=== PATIENT | male | born 1960 | race Caucasian/White ===

== ENCOUNTER → 2016-11-03 | Outpatient (CLI) | payer MEDICARE ==
--- NOTE | 2016-11-03 13:49 | NM ---
EXAMINATION TYPE: NM bone 3 phase DATE OF EXAM: 11/03/2016 COMPARISON: Prior bone scan 02/09/[address] scan 08/11/2015, plain film 08/11/2015 HISTORY: Left foot cellulitis, L03.116 Triple phase bone scintigraphy was performed following the injection of27.3 mCi Tc 99m MDP. Immediat e images and 5.5 hours post injection images acquired. FINDINGS: Decreased radiopharmaceutical is noted to the left midfoot on blood flow, blood pool and delayed imag ing similar to prior exam. IMPRESSION: Findings could be related to patient's prior's fracture, secondary osteoarthritic change, there may b e associated cellulitis. Difficult to exclude infection
== END | disposition home or self-care (01) ==
LOC: RADNMMAIN 07:06
PROVIDERS: ATTEND Family Medicine
DX: L03.116 Cellulitis of left lower limb (principal)
CPT/HCPCS: 78315; A9503

== ENCOUNTER → 2017-03-03 | Outpatient (CLI) | payer MEDICARE ==
--- NOTE | 2017-03-03 14:18 | XR ---
Left ankle HISTORY: Remote trauma and pain 3 views of the left ankle correlated to previous dated 09/04/2015 Postop changes are again noted status post open reduction internal fixation at the distal tibia and f ibula. Alignment is maintained. Fractures show healing change. Postop change also noted to the foot s tatus post tarsometatarsal fusion. One proximal screw has fractured in the interval. Heterotopic new bone formation present dorsal to the sideplate. Degenerative changes are present at the intertarsal j oints. Bone mineralization somewhat reduced. There is soft tissue swelling noted at the foot as on pr ior exam. Some spurring present at the tibiotalar joint may be indicative of secondary osteoarthritic change. Lucency present at the medial ankle mortise could represent a small osteochondral defect. IMPRESSION: Fracture of one of the proximal screws in the foot. Second screw is curved in appearance. Difficult to exclude osteochondral defect ankle mortise. Additional findings above. A Yellow message has been communicated to Louie Lipscomb DO via the [employer] system on 03/03/2017 2:15 PM, Message ID [id number].
== END | disposition home or self-care (01) ==
LOC: RADXRMAIN 13:38
PROVIDERS: ATTEND Family Medicine
DX: S92.902A Unspecified fracture of left foot, initial encounter for closed fracture (principal); Z98.890 Other specified postprocedural states

== ENCOUNTER → 2017-07-04 | Outpatient (CLI) | payer MEDICARE ==
--- NOTE | 2017-07-04 15:32 | NM ---
Nuclear medicine hepatobiliary scan. HISTORY: Pain. DOSAGE: The patient received 8 ounces of ensure plus and 5.3 mCi of Technetium 99m Choletec. FINDINGS: There is normal hepatic extraction. The gallbladder is seen by 20 minutes. There is bilia ry to bowel clearance by 20 minutes. Ejection fraction is 22%. IMPRESSION: 1. Abnormal ejection fraction of 22% correlate for biliary dyskinesia.
== END | disposition home or self-care (01) ==
LOC: RADNMMAIN 12:57
PROVIDERS: ATTEND Family Medicine
DX: R93.2 Abnormal findings on diagnostic imaging of liver and biliary tract (principal); R10.11 Right upper quadrant pain
CPT/HCPCS: 78226; A9537

== ENCOUNTER → 2017-07-07 | Day surgery (SDC) | payer MEDICARE ==
[2017-07-05 15:45] VITALS: BMI 25.8
[~2017-07-07] MED LIST: LACTATED RINGERS 1,000 ML IV SCH; LIDOCAINE 1% INJ 10MG/ML (20 ML MDV) ONE; PROPOFOL 10 MG/ML 20 ML VIAL IV ONE
[2017-07-07 11:17] VITALS: TEMP 97.7
--- NOTE | 2017-07-07 12:08 | P.PCN ---
Date of Procedure: 07/07/17 Procedure(s) Performed: BRIEF HISTORY: Patient is a 56-year-old pleasant male, scheduled for an elective colonoscopy as a part of long-standing history of Crohn's disease diagnosed the 25 years ago. He status post terminal ileal resection. Also has severe perianal Crohn's disease and the past was a biologic was Remicade as well as Imuran about 5 years ago. Subsequently the medications were discontinued and he was treated with the Deneen for few years. He quit all medications approximately 2 years ago and he remains in clinical remission. He does use Flagyl as needed for perianal Crohn's disease. PROCEDURE PERFORMED: Colonoscopy with biopsy . PREOPERATIVE DIAGNOSIS: Long standing history of Crohn's disease IV sedation per Anesthesia. PROCEDURE: After informed consent was obtained, the patient, was brought into the endoscopy unit. IV sedation was administered by Anesthesia under continuous monitoring. Digital rectal examination revealed the duration of the perianal area but no active fistulous noted. Initially the Olympus CF-160 flexible video colonoscope was then inserted in the rectum, gradually advanced into the right colon with retained liquid anastomosis was visualized that appeared significantly narrowed with superficial ulcerations and biopsies were done from this area. Mucosa of the transverse colon, descending colon, sigmoid colon, and rectum appeared normal. in the distal rectum there were thickened mucosal folds with scattered erosions and biopsies were also done from this area. Retroflexion was performed in the rectum and no lesions were seen. The patient tolerated the procedure well. IMPRESSION: Narrowing of the ileocolic anastomosis with superficial ulcerations status post biopsies Thickened mucosal folds in the distal rectum with scattered erosions status post biopsies RECOMMENDATIONS: Findings of this examination were discussed with the patient as well as his family. He was advised to follow with the biopsy results and he' ll be seen in the office in 2-3 weeks.
[2017-07-07 12:11] VITALS: RESP 16
[2017-07-07 12:18] VITALS: BP 111/62; PULSE 63
== END ==
LOC: ORWHC2ENDO 10:29
PROVIDERS: ATTEND Internal Medicine Gastroenterology
DX: K52.9 Noninfective gastroenteritis and colitis, unspecified (principal); K63.3 Ulcer of intestine; K62.6 Ulcer of anus and rectum; K50.90 Crohn's disease, unspecified, without complications; Z90.49 Acquired absence of other specified parts of digestive tract; K63.89 Other specified diseases of intestine; Z79.1 Long term (current) use of non-steroidal anti-inflammatories (NSAID); Z79.891 Long term (current) use of opiate analgesic; F17.210 Nicotine dependence, cigarettes, uncomplicated
CPT/HCPCS: 45380; J2001; J2704; 88305

== ENCOUNTER → 2017-07-15 | Outpatient (CLI) | payer MEDICARE ==
[2017-07-15 17:03] LABS: Basophils % (A) 1 %; Eosinophils # (A) 0.1 k/uL (0-0.7); Eosinophils % (A) 1 %; HCT 41.4 % (39.0-53.0); HGB 13.7 gm/dL (13.0-17.5); Lymphocytes # (A) 2.4 k/uL (1.0-4.8); Lymphocytes % (A) 26 %; MCH 29.5 pg (25.0-35.0); MCV 89.5 fL (80.0-100.0); Monocytes # (A) 0.7 k/uL (0-1.0); Monocytes % (A) 7 %; Neutrophils # (A) 5.9 k/uL (1.3-7.7); Neutrophils % (A) 63 %; Platelet Count 358 k/uL (150-450); RBC 4.63 m/uL (4.30-5.90); RDW 13.3 % (11.5-15.5); WBC 9.4 k/uL (3.8-10.6)
[2017-07-15 17:15] LABS: ALT 25 U/L (21-72); AST 21 U/L (17-59); Alkaline Phosphatase 72 U/L (38-126); Anion Gap 13 mmol/L; Blood Urea Nitrogen 18 mg/dL (9-20); Calcium 9.3 mg/dL (8.4-10.2); Carbon Dioxide 24 mmol/L (22-30); Chloride 110 mmol/L (98-107); Glucose 91 mg/dL (74-99); Potassium 3.6 mmol/L (3.5-5.1); Sodium 147 mmol/L (137-145); Total Bilirubin 0.6 mg/dL (0.2-1.3); Total Protein 7.3 g/dL (6.3-8.2)
== END | disposition home or self-care (01) ==
LOC: LABWHC1 16:34
PROVIDERS: ATTEND Internal Medicine Gastroenterology
DX: K50.90 Crohn's disease, unspecified, without complications (principal)
CPT/HCPCS: 36415; 80053; 85025; 86480; 87340

== ENCOUNTER → 2017-08-26 | Outpatient (CLI) | payer MEDICARE ==
[2017-08-26 12:34] LABS: HCT 45.4 % (39.0-53.0); HGB 15.5 gm/dL (13.0-17.5); MCH 31.3 pg (25.0-35.0); MCHC 34.3 g/dL (31.0-37.0); MCV 91.4 fL (80.0-100.0); Platelet Count 350 k/uL (150-450); RBC 4.96 m/uL (4.30-5.90); RDW 13.4 % (11.5-15.5); WBC 10.1 k/uL (3.8-10.6)
[2017-08-26 12:47] LABS: ALT 44 U/L (21-72); AST 56 U/L (17-59); Albumin 4.4 g/dL (3.5-5.0); Alkaline Phosphatase 77 U/L (38-126); Amylase 48 U/L (30-110); Anion Gap 14 mmol/L; Blood Urea Nitrogen 16 mg/dL (9-20); Calcium 9.9 mg/dL (8.4-10.2); Carbon Dioxide 25 mmol/L (22-30); Chloride 106 mmol/L (98-107); Glucose 99 mg/dL (74-99); Potassium 3.8 mmol/L (3.5-5.1); Sodium 145 mmol/L (137-145); Total Bilirubin 1.1 mg/dL (0.2-1.3); Total Protein 7.7 g/dL (6.3-8.2)
--- NOTE | 2017-08-26 14:50 | US ---
EXAMINATION TYPE: US abdomen limited DATE OF EXAM: 08/26/2017 COMPARISON: NM 07/04/2017, CT 08/11/2015 CLINICAL HISTORY: R10.11 RUQ ABD PAIN. EXAM MEASUREMENTS: Liver Length: 16.5 cm , normal less than 15.5 cm. Gallbladder Wall: 0.2 cm CBD: 0.4 cm Right Kidney: 11.2 x 4.3 x 5.0 cm Pancreas: Tail obscured by overlying bowel gas. Duct visualized measuring 0.2 cm, this is at the upp er limits of normal for size. Liver: Two cystic areas visualized in the right lobe, largest measuring 1.0 x 1.1 x 0.9 cm . These appear to be simple cysts. Gallbladder: No stones or sludge visualized Evidence for sonographic Goyal's sign: No CBD: wnl Right Kidney: No hydronephrosis. Cystic area lower pole measuring 0.6 x 0.6 x 0.8 cm IMPRESSION: 1. Hepatic cysts. 2. Minimal hepatomegaly
== END | disposition home or self-care (01) ==
LOC: RADUSWWP 11:43
PROVIDERS: ATTEND Surgery
DX: R16.0 Hepatomegaly, not elsewhere classified (principal); K76.89 Other specified diseases of liver; R10.11 Right upper quadrant pain
CPT/HCPCS: 76705; 80053; 82150; 85027

== ENCOUNTER → 2017-12-01 | Outpatient (CLI) | payer MEDICARE ==
--- NOTE | 2017-12-01 18:02 | XR ---
EXAMINATION TYPE: XR KUB DATE OF EXAM: 12/01/2017 COMPARISON: 10/09/2014 HISTORY: Left flank pain TECHNIQUE: 2 views supine FINDINGS: There is no sign of intestinal obstruction or pneumoperitoneum. There are no pathologic grant cifications over the kidneys. There are calcifications in the pelvis that are probably vascular. Bony structures appear intact. There is no sign of a mass. Fecal pattern is normal. IMPRESSION: Nonacute abdomen. No change.
== END | disposition home or self-care (01) ==
LOC: RADXRMAIN 16:16
PROVIDERS: ATTEND Family Medicine
DX: N20.0 Calculus of kidney (principal)
CPT/HCPCS: 74018

== ENCOUNTER 2017-12-24 12:44 | Emergency (ER) | payer MEDICARE ==
[2017-12-24 12:48] VITALS: RESP 20
--- NOTE | 2017-12-24 13:15 | ED ---
General Adult HPI - General Chief complaint: Extremity Problem,Nontraumatic Stated complaint: Left Foot Pain Time Seen by Provider: 12/24/17 12:58 Source: patient, RN notes reviewed Mode of arrival: ambulatory Limitations: no limitations - History of Present Illness Initial comments: Patient 57-year-old male presented to the emergency room today with chief complaint of increased ankle pain starting this morning. Patient states that has a history of a crush injury to his foot and ankle had have surgery 3 years ago. Patient states that this morning he woke up and noticed some discomfort to the ankle area has got worsening dental time with ambulation and bearing weight at this time. Patient states is worse with certain movements with the left ankle. He denies any injury or trauma. He denies any other complaints or symptoms. Patient denies any recent fever, chills, shortness of breath, chest pain, back pain, abdominal pain, nausea or vomiting, numbness or tingling, dysuria or hematuria, or any other complaints. - Related Data Home Medications Medication Instructions Recorded Confirmed HYDROcodone/APAP 10-325MG [[place] 1 tab PO Q6H PRN 08/11/15 07/05/17 10-325] Ibuprofen [Motrin] 800 mg PO BID PRN 07/05/17 07/07/17 Previous Rx's Medication Instructions Recorded Ibuprofen [Motrin] 800 mg PO Q6HR #30 tab 12/24/17 Allergies Allergy/AdvReac Type Severity Reaction Status Date / Time No Known Allergies Allergy Verified 12/24/17 12:48 Review of Systems ROS Statement: Those systems with pertinent positive or pertinent negative responses have been documented in the HPI. ROS Other: All systems not noted in ROS Statement are negative. Past Medical History Past Medical History: Osteoarthritis (OA), Sleep Apnea/CPAP/BIPAP Additional Past Medical History / Comment(s): crohns, stewart rectal abcesses, perianal abscesses, lt hand /wrist fx-casted, kidney stone, NO CPAP History of Any Multi-Drug Resistant Organisms: None Reported Past Surgical History: Appendectomy, Bowel Resection Additional Past Surgical History / Comment(s): multiple colonoscopies, 2 bowel resections age 17 and 29, x6 i&d's d/t fistulas d/t crohns. Past Anesthesia/Blood Transfusion Reactions: No Reported Reaction Past Psychological History: No Psychological Hx Reported Smoking Status: Current every day smoker Past Alcohol Use History: None Reported Past Drug Use History: None Reported - Past Family History Father Family Medical History: Cancer Additional Family Medical History / Comment(s): bladder cancer, ddd Mother Family Medical History: Hyperlipidemia, Hypertension General Exam Limitations: no limitations Course Vital Signs 12/24/17 12:46 Temperature 98.2 F Pulse Rate 76 Respiratory 20 Rate Blood Pressure 148/92 O2 Sat by Pulse 98 Oximetry Medical Decision Making - Medical Decision Making x-rays reviewed and discussed with attending physician . patient advised follow-up with orthopedics as there is no acute fracture dislocation. He is advised follow-up with his orthopedic surgeon advised to ice elevate the affected area. Return if symptoms increase or worsen. Disposition Clinical Impression: Ankle pain Disposition: HOME SELF-CARE Condition: Good Instructions: Arthralgia (ED) Additional Instructions: Please follow-up with orthopedic doctor over the next 2 days. Please continue to ice elevate use crutches with weightbearing as tolerated. Please use anti- inflammatories for pain. Please return to emergency room if any symptoms increase worsen or for any other concerns. Prescriptions: Ibuprofen [Motrin] 800 mg PO Q6HR #30 tab Is patient prescribed a controlled substance at d/c from ED?: No Referrals: Louie Lipscomb DO [Primary Care Provider] - 1-2 days Time of Disposition: 14:10
--- NOTE | 2017-12-24 13:23 | XR ---
EXAMINATION TYPE: XR foot complete LT , 3 VIEWS DATE OF EXAM ORDERED: 12/24/2017 HISTORY: Pain. COMPARISON: None. FINDINGS: There has been a previous arthrodesis between the second metatarsal and the middle cuneifo rm. Several screws are present. There is part of the screw in the medial cuneiform. There is also bee n sideplate fixation of the distal left fibula and screw fixation of the medial malleolus. There are degenerative changes in the first tarsometatarsal joint as well as the first MTP joint. IMPRESSION: 1. POSTSURGICAL CHANGE. 2. DEGENERATIVE CHANGE. 3. NO ACUTE OSSEOUS LESION.
--- NOTE | 2017-12-24 13:25 | XR ---
EXAMINATION TYPE: XR ankle complete LT , 3 VIEWS DATE OF EXAM ORDERED: 12/24/2017 HISTORY: Pain. COMPARISON: Previous study dated 03/03/2017. FINDINGS: There has been sideplate and screw fixation of the distal left fibula. There has been medu llary screw fixation of the medial malleolus. No acute fracture or dislocation is seen. IMPRESSION: 1. NO ACUTE OSSEOUS LESION. 2. POST SURGICAL CHANGE.
[2017-12-24 14:22] VITALS: BP 134/77; PULSE 78; TEMP 98
== END 2017-12-24 14:22 | disposition home or self-care (01) ==
LOC: EC 12:44
DX: M25.572 Pain in left ankle and joints of left foot (principal); G47.30 Sleep apnea, unspecified; F17.200 Nicotine dependence, unspecified, uncomplicated
CPT/HCPCS: 99283

== ENCOUNTER → 2018-01-04 | Outpatient (CLI) | payer MEDICARE ==
--- NOTE | 2018-01-05 17:19 | MR ---
EXAMINATION TYPE: MR lumbar spine wo con DATE OF EXAM: 01/04/2018 COMPARISON: Lumbar MRI 05/25/2011 HISTORY: Low back pain TECHNIQUE: Multiplanar, multisequence images of the lumbar spine were acquired. L1-L2: Posterior broad-based disc bulge causes mild anterior mass effect on the thecal sac. Hypertrop hic change of the ligamentum flavum causes some mild posterior lateral mass effect on the thecal sac. No significant central stenosis or foraminal encroachment. L2-L3: Broad-based posterior disc bulge causes only mild anterior mass effect on the thecal sac, no s ignificant central stenosis, circumferential extension endplate disc complex encroaches towards the n eural foramina. L3-L4: Posterior broad-based disc bulge causes anterior mass effect on the thecal sac, mild central s tenosis, circumferential extension endplate disc complex encroaches towards the foramina left greater than right. L4-L5: Broad-based posterior disc bulge causes mild anterior mass effect on the thecal sac, circumfer ential extension endplate disc complex encroaches on the foramina left greater than right, no signifi cant central stenosis. Facet arthropathy with hypertrophy ligamentum flavum causes some posterior lat eral mass effect on the thecal sac. L5-S1: Broad-based posterior disc bulge may contact the anterior thecal sac, S1 nerve roots. Circumfe rential extension of endplate disc complex encroaches on the bilateral neural foramina, no significan t central stenosis. Lumbar segments are intact. No paraspinal masses are identified. Conus medullaris has a normal appe arance. There is a mild spinal curvature. Lumbar vertebral bodies show preserved height. There is mu ltilevel spondylosis with endplate discogenic marrow signal change, loss of disc height signal at int ervertebral levels compatible disc desiccation and degenerative disc disease, vacuum disc phenomenon noted. Minimal retrolisthesis grade 1 L2-3 IMPRESSION: Degenerative disc disease, facet arthropathy is similar to prior exam.
== END ==
LOC: RADMRIMAIN 16:49
PROVIDERS: ATTEND Physician Assistant
DX: M51.36 Other intervertebral disc degeneration, lumbar region (principal); M46.96 Unspecified inflammatory spondylopathy, lumbar region
CPT/HCPCS: 72148

== ENCOUNTER 2018-07-10 08:26 | Emergency (ER) | payer MEDICARE ==
[2018-07-10 08:32] VITALS: TEMP 98.2
[2018-07-10] MEDS ORDERED: SODIUM CHLORIDE 0.9% 500 ML 500 ML IV STA (08:46)
--- NOTE | 2018-07-10 08:50 | ED ---
General Adult HPI - General Chief complaint: Abdominal Pain Stated complaint: abd pain Time Seen by Provider: 07/10/18 08:30 Source: patient, RN notes reviewed Mode of arrival: ambulatory - History of Present Illness Initial comments: This a 57-year-old male with past medical history significant for Crohn's disease. Patient's had multiple surgeries related to his Crohn's in the past. Patient states he has an umbilical hernia and a right inguinal hernia currently. Patient states she supposed to follow-up with Dr. Walker get those repaired. Patient states over the last day he's been constipated and feels as though he has to go but has been unable to go. Patient states that he does pass any stool was all liquid. Patient states he has been able to pass some gas. Patient states that the inguinal hernia is hurting more as well particular when he standing he feels more burning down there. Patient states the hernia is reducible. Patient denies any recent fever chills per patient states she's been a little nauseated but no vomiting. Patient denies any chest pain difficult breathing shortness of breath. Patient denies any dysuria hematuria urinary frequency. Patient denies any back pain. - Related Data Previous Rx's Medication Instructions Recorded Sulfamethox-Tmp 800-160Mg [Bactrim 1 each PO Q12HR #14 tab 07/10/18 DS 800-160 mg] Allergies Allergy/AdvReac Type Severity Reaction Status Date / Time No Known Allergies Allergy Verified 07/10/18 09:40 Review of Systems ROS Statement: Those systems with pertinent positive or pertinent negative responses have been documented in the HPI. ROS Other: All systems not noted in ROS Statement are negative. Past Medical History Past Medical History: Osteoarthritis (OA), Sleep Apnea/CPAP/BIPAP Additional Past Medical History / Comment(s): crohns, stewart rectal abcesses, perianal abscesses, lt hand /wrist fx-casted, kidney stone, NO CPAP History of Any Multi-Drug Resistant Organisms: None Reported Past Surgical History: Appendectomy, Bowel Resection Additional Past Surgical History / Comment(s): multiple colonoscopies, 2 bowel resections age 17 and 29, x6 i&d's d/t fistulas d/t crohns. Past Anesthesia/Blood Transfusion Reactions: No Reported Reaction Past Psychological History: No Psychological Hx Reported Smoking Status: Current every day smoker Past Alcohol Use History: Rare Past Drug Use History: None Reported - Past Family History Father Family Medical History: Cancer Additional Family Medical History / Comment(s): bladder cancer, ddd Mother Family Medical History: Hyperlipidemia, Hypertension General Exam - General Exam Comments Initial Comments: GENERAL: Patient is well-developed and well-nourished. Patient is nontoxic and well- hydrated and is in mild distress. ENT: Neck is soft and supple. No significant lymphadenopathy is noted. Oropharynx is clear. Moist mucous membranes. Neck has full range of motion without eliciting any pain. EYES: The sclera were anicteric and conjunctiva were pink and moist. Extraocular movements were intact and pupils were equal round and reactive to light. Eyelids were unremarkable. PULMONARY: Unlabored respirations. Good breath sounds bilaterally. No audible rales rhonchi or wheezing was noted. CARDIOVASCULAR: There is a regular rate and rhythm without any murmurs gallops or rubs. ABDOMEN: Soft and nontender with normal bowel sounds. No palpable organomegaly was noted. There is no palpable pulsatile mass. Right inguinal hernia is present but very easily reducible. Patient has an umbilical hernia SKIN: Skin is clear with no lesions or rashes and otherwise unremarkable. NEUROLOGIC: Patient is alert and oriented x3. Cranial nerves II through XII are grossly intact. Motor and sensory are also intact. Normal speech, volume and content. Symmetrical smile. MUSCULOSKELETAL: Normal extremities with adequate strength and full range of motion. No lower extremity swelling or edema. No calf tenderness. LYMPHATICS: No significant lymphadenopathy is noted PSYCHIATRIC: Normal psychiatric evaluation. Normal interpersonal interactions appears functionally intact in deals appropriately with others. No signs of depression. No signs of anxiety. Course Vital Signs 07/10/18 07/10/18 08:29 11:30 Temperature 98.2 F Pulse Rate 64 62 Respiratory 20 18 Rate Blood Pressure 158/94 131/95 O2 Sat by Pulse 99 97 Oximetry Medical Decision Making - Medical Decision Making patient's urine showed an infectious I gave the patient a gram of Rocephin and we'll be sending the patient home on antibiotics. Computed tomography scan shows no acute abnormality. - Lab Data Result diagrams: 07/10/18 09:10 07/10/18 09:10 Lab Results 07/10/18 07/10/18 07/10/18 Range/Units 09:10 09:10 09:10 WBC 7.9 (3.8-10.6) k/uL RBC 4.66 (4.30-5.90) m/uL Hgb 14.2 (13.0-17.5) gm/dL Hct 41.4 (39.0-53.0) % MCV 88.8 (80.0-100.0) fL MCH 30.5 (25.0-35.0) pg MCHC 34.4 (31.0-37.0) g/dL RDW 13.8 (11.5-15.5) % Plt Count 251 (150-450) k/uL Neutrophils % 61 % Lymphocytes % 27 % Monocytes % 8 % Eosinophils % 2 % Basophils % 0 % Neutrophils # 4.8 (1.3-7.7) k/uL Lymphocytes # 2.1 (1.0-4.8) k/uL Monocytes # 0.6 (0-1.0) k/uL Eosinophils # 0.2 (0-0.7) k/uL Basophils # 0.0 (0-0.2) k/uL Sodium 139 (137-145) mmol/L Potassium 3.8 (3.5-5.1) mmol/L Chloride 111 H (98-107) mmol/L Carbon Dioxide 25 (22-30) mmol/L Anion Gap 3 mmol/L BUN 13 (9-20) mg/dL Creatinine 0.83 (0.66-1.25) mg/dL Est GFR (CKD-EPI)AfAm >90 (>60 ml/min/1.73 sqM) Est GFR (CKD-EPI)NonAf >90 (>60 ml/min/1.73 sqM) Glucose 90 (74-99) mg/dL Calcium 8.7 (8.4-10.2) mg/dL Total Bilirubin 0.7 (0.2-1.3) mg/dL AST 23 (17-59) U/L ALT 37 (21-72) U/L Alkaline Phosphatase 60 (38-126) U/L Total Protein 6.3 (6.3-8.2) g/dL Albumin 3.4 L (3.5-5.0) g/dL Amylase 48 (30-110) U/L Lipase 98 (23-300) U/L Urine Color Yellow Urine Appearance Clear (Clear) Urine pH 6.0 (5.0-8.0) Ur Specific [place] 1.027 (1.001-1.035) Urine Protein Trace H (Negative) Urine Glucose (UA) Negative (Negative) Urine Ketones Negative (Negative) Urine Blood Small H (Negative) Urine Nitrite Negative (Negative) Urine Bilirubin Negative (Negative) Urine Urobilinogen <2.0 (<2.0) mg/dL Ur Leukocyte Esterase Large H (Negative) Urine RBC 7 H (0-5) /hpf Urine WBC 86 H (0-5) /hpf Ur Squamous Epith Cells <1 (0-4) /hpf Urine Bacteria Rare H (None) /hpf Urine Mucus Few H (None) /hpf Disposition Clinical Impression: Urinary tract infection, Abdominal pain Disposition: HOME SELF-CARE Condition: Good Instructions (If sedation given, give patient instructions): Urinary Tract Infection in Men (ED), Abdominal Pain (ED) Prescriptions: Sulfamethox-Tmp 800-160Mg [Bactrim DS 800-160 mg] 1 each PO Q12HR #14 tab Is patient prescribed a controlled substance at d/c from ED?: No Referrals: Louie Lipscomb DO [Primary Care Provider] - 1-2 days Time of Disposition: 12:02
--- NOTE | 2018-07-10 09:34 | XR ---
EXAMINATION TYPE: XR KUB DATE OF EXAM: 07/10/2018 COMPARISON: NONE HISTORY: Pain TECHNIQUE: One view abdominal series FINDINGS: The osseous structures are intact. The bowel gas pattern is nonspecific. Lung bases are clear. Dege nerative and hypertrophic change of the vertebral column. Arthropathy of the hips. Calcifications the pelvis are likely vascular. Bowel gas pattern nonspecific. IMPRESSION: 1. Nonspecific abdomen. Scattered air-fluid levels and prominent small bowel loops could be seen wit h enteritis or ileus. Partial obstruction not entirely excluded correlate clinically.
[2018-07-10 09:59] LABS: Basophils % (A) 0 %; Eosinophils # (A) 0.2 k/uL (0-0.7); Eosinophils % (A) 2 %; HCT 41.4 % (39.0-53.0); HGB 14.2 gm/dL (13.0-17.5); Lymphocytes # (A) 2.1 k/uL (1.0-4.8); Lymphocytes % (A) 27 %; MCH 30.5 pg (25.0-35.0); MCHC 34.4 g/dL (31.0-37.0); MCV 88.8 fL (80.0-100.0); Mean Platelet Volume 6.8; Monocytes # (A) 0.6 k/uL (0-1.0); Monocytes % (A) 8 %; Neutrophils # (A) 4.8 k/uL (1.3-7.7); Neutrophils % (A) 61 %; Platelet Count 251 k/uL (150-450); RBC 4.66 m/uL (4.30-5.90); RDW 13.8 % (11.5-15.5); WBC 7.9 k/uL (3.8-10.6)
[2018-07-10 10:09] LABS: ALT 37 U/L (21-72); AST 23 U/L (17-59); Albumin 3.4 g/dL (3.5-5.0); Alkaline Phosphatase 60 U/L (38-126); Amylase 48 U/L (30-110); Anion Gap 3 mmol/L; Appearance,Urine Clear (Clear); Bacteria,Urine Rare /hpf; Bilirubin,Urine Negative (Negative); Blood Urea Nitrogen 13 mg/dL (9-20); Blood,Urine Small (Negative); Calcium 8.7 mg/dL (8.4-10.2); Carbon Dioxide 25 mmol/L (22-30); Chloride 111 mmol/L (98-107); Color,Urine Yellow; Glucose 90 mg/dL (74-99); Glucose,Urine (UA) Negative (Negative); Ketones,Urine Negative (Negative); Leukocyte Esterase,Urine Large (Negative); Lipase 98 U/L (23-300); Mucus,Urine Few /hpf; Nitrite,Urine Negative (Negative); Potassium 3.8 mmol/L (3.5-5.1); Protein,Urine Trace (Negative); RBC,Urine 7 /hpf (0-5); Sodium 139 mmol/L (137-145); Specific Gravity,Urine 1.027 (1.001-1.035); Squamous Epithelial Cell,Urine <1 /hpf (0-4); Total Bilirubin 0.7 mg/dL (0.2-1.3); Total Protein 6.3 g/dL (6.3-8.2); Urobilinogen,Urine <2.0 mg/dL (<2.0); WBC,Urine 86 /hpf (0-5)
[2018-07-10] MEDS ORDERED: HYDROmorphone 1 MG/ML 1 ML SYRINGE IVP STA (11:09)
[2018-07-10] MEDS ORDERED: ONDANSETRON 4 MG/2 ML VIAL IVP STA (11:09)
--- NOTE | 2018-07-10 11:41 | CT ---
EXAMINATION TYPE: CT abdomen pelvis wo con DATE OF EXAM: 07/10/2018 COMPARISON: 08/11/2015 HISTORY: Low abdominal pain with a history of Crohn's CT DLP: 471.6 mGycm Examination of the solid and hollow viscera is limited given the lack of contrast. FINDINGS: LUNG BASES: No evidence for nodule. No evidence for infiltrate. LIVER/GB: The gallbladder is unremarkable. Small probable cysts within the liver. No space-occupying hepatic lesion. PANCREAS: No pancreatic mass identified. No inflammatory process seen. SPLEEN: No evidence for splenomegaly. No intrasplenic lesions seen. ADRENALS: No adrenal nodules identified. No evidence for thickening. KIDNEYS: No evidence for solid renal mass. Probable cyst left mid kidney. No nephrolithiasis. No hydronephrosis. BOWEL: There is perirectal wall thickening which was present previously although does appear to have improved. This may be chronic in nature. No discernible abscess is identified at this time. Fat-conta ining right inguinal hernia. Appendix has a normal appearance. No evidence of bowel obstruction. No i nflammatory process. Lymph nodes: No evidence for adenopathy greater than 1 cm. Abdominal aorta: Atheromatous changes seen. No evidence for aneurysm. Genital organs: No significant abnormality. Other: No significant abnormality. IMPRESSION: There is perirectal wall thickening which was present previously although does appear to have improve d. This may be chronic in nature. No discernible abscess is identified at this time.
[2018-07-10 11:48] VITALS: RESP 18
[2018-07-10] MEDS ORDERED: cefTRIAXone IN SWFI 1,000 MG/10 ML SYRINGE IVP STA (11:54)
[2018-07-10 12:14] VITALS: BP 126/94; PULSE 68
== END 2018-07-10 12:14 | disposition home or self-care (01) ==
LOC: EC 08:26
DX: N39.0 Urinary tract infection, site not specified (principal); R10.9 Unspecified abdominal pain; R11.0 Nausea; F17.200 Nicotine dependence, unspecified, uncomplicated; Z90.49 Acquired absence of other specified parts of digestive tract
CPT/HCPCS: 36415; 80053; 82150; 83690; 85025; 81001; 74018; 74176; 99284; 96374; 96375 ×2; 96361 ×2; J2405; J0696; J1170

== ENCOUNTER 2019-03-11 20:56 | Emergency (ER) | payer MEDICARE ==
[2019-03-11 21:01] VITALS: RESP 18
[2019-03-11] MEDS ORDERED: HYDROcodone/APAP 10-325MG 1 EACH TAB PO ONE (21:23)
--- NOTE | 2019-03-11 21:24 | ED ---
Abdominal Pain HPI - General Chief Complaint: Abdominal Pain Stated Complaint: Abd Pain Time Seen by Provider: 03/11/19 21:06 Source: patient, family Mode of arrival: ambulatory Limitations: no limitations - History of Present Illness Initial Comments: Patient is a 58-year-old male with history of Crohn's presenting to emergency Department with a chief complaint of anal pain. 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 Patient reports for the last several days the pain has been gradually increasing severity and he has increased urgency for a bowel movement of very minimal stool was produced. He states there is some blood when he wipes but otherwise no blood in his stool. Denies any urinary symptoms. Patient reports he has been to the ED multiple times for the same symptoms and usually Dr. Walker is contacted to perform procedure. Patient reports taking [place] early this morning with some improvement in his symptoms. - Related Data Previous Rx's Medication Instructions Recorded Sulfamethox-Tmp 800-160Mg [Bactrim 1 each PO Q12HR #14 tab 07/10/18 DS 800-160 mg] Hydrocortisone Cream 1 applic TOPICAL TID #1 bottle 03/11/19 [Hydrocortisone 1% Cream] metroNIDAZOLE [Flagyl] 500 mg PO TID #30 tab 03/11/19 Allergies Allergy/AdvReac Type Severity Reaction Status Date / Time No Known Allergies Allergy Verified 03/11/19 21:00 Review of Systems ROS Statement: Those systems with pertinent positive or pertinent negative responses have been documented in the HPI. ROS Other: All systems not noted in ROS Statement are negative. Past Medical History Past Medical History: Osteoarthritis (OA), Sleep Apnea/CPAP/BIPAP Additional Past Medical History / Comment(s): crohns, stewart rectal abcesses, perianal abscesses, lt hand /wrist fx-casted, kidney stone, NO CPAP History of Any Multi-Drug Resistant Organisms: None Reported Past Surgical History: Appendectomy, Bowel Resection, Hernia Repair Additional Past Surgical History / Comment(s): multiple colonoscopies, 2 bowel resections age 17 and 29, x6 i&d's d/t fistulas d/t crohns. Past Anesthesia/Blood Transfusion Reactions: No Reported Reaction Past Psychological History: No Psychological Hx Reported Smoking Status: Current every day smoker Past Alcohol Use History: Occasional Past Drug Use History: None Reported - Past Family History Father Family Medical History: Cancer Additional Family Medical History / Comment(s): bladder cancer, ddd Mother Family Medical History: Hyperlipidemia, Hypertension General Exam Limitations: no limitations General appearance: alert, in no apparent distress Head exam: Present: atraumatic, normocephalic, normal inspection Eye exam: Present: normal appearance Pupils: Present: normal accommodation ENT exam: Present: normal exam, mucous membranes moist Neck exam: Present: normal inspection, full ROM Respiratory exam: Present: normal lung sounds bilaterally Cardiovascular Exam: Present: regular rate, normal rhythm, normal heart sounds GI/Abdominal exam: Present: soft, normal bowel sounds. Absent: distended, tenderness, rebound, pulsatile mass, hernia Rectal exam: Absent: normal inspection (Skin excoriations around the anus. No bleeding noted. No external hemorrhoids noted.), hemorrhoids Extremities exam: Present: normal inspection, full ROM Back exam: Present: normal inspection, full ROM Neurological exam: Present: alert, oriented X3 Psychiatric exam: Present: normal affect, normal mood Skin exam: Present: warm, dry, intact, normal color Course Vital Signs 03/11/19 03/11/19 20:57 23:24 Temperature 98 F 98.2 F Pulse Rate 78 60 Respiratory 18 18 Rate Blood Pressure 153/90 132/90 O2 Sat by Pulse 98 95 Oximetry Medical Decision Making - Medical Decision Making Patient is 58-year-old male with history of Crohn's presenting to the emergency Department with a chief complaint of anal pain. Over the last several days patient has had morning usual rectal pain along with increased urgency to a bowel movement throughout the day but unable to actually pass a bowel movement. Exam shows moderate excoriations around the anus but no signs of a fissure, fistula or hemorrhoids. No rectal bleeding noted. Patient is very tender on palpation. Laboratory results are unremarkable. CT of abdomen and pelvis shows no significant changes compared to the last imaging. I suspect the patient has a flareup at this time. Patient advised to use Sitz bath multiple times a day. Patient also given a steroid cream. Patient also prescribed Flagyl and advised not to drink alcohol while taking the medication. Patient advised to follow-up with Dr. Hoyt. Dr. Granda also examined the patient and is in agreement with the treatment plan. Strict return parameters were thoroughly discussed the patient was understanding and agreeable. - Lab Data Result diagrams: 03/11/19 22:25 03/11/19 22:25 Lab Results 03/11/19 03/11/19 Range/Units 22:25 22:25 WBC 9.2 (3.8-10.6) k/uL RBC 5.04 (4.30-5.90) m/uL Hgb 15.5 (13.0-17.5) gm/dL Hct 46.1 (39.0-53.0) % MCV 91.6 (80.0-100.0) fL MCH 30.7 (25.0-35.0) pg MCHC 33.5 (31.0-37.0) g/dL RDW 12.8 (11.5-15.5) % Plt Count 337 (150-450) k/uL Neutrophils % 59 % Lymphocytes % 28 % Monocytes % 9 % Eosinophils % 1 % Basophils % 0 % Neutrophils # 5.4 (1.3-7.7) k/uL Lymphocytes # 2.6 (1.0-4.8) k/uL Monocytes # 0.9 (0-1.0) k/uL Eosinophils # 0.1 (0-0.7) k/uL Basophils # 0.0 (0-0.2) k/uL Sodium 140 (137-145) mmol/L Potassium 4.4 (3.5-5.1) mmol/L Chloride 108 H (98-107) mmol/L Carbon Dioxide 25 (22-30) mmol/L Anion Gap 7 mmol/L BUN 20 (9-20) mg/dL Creatinine 0.85 (0.66-1.25) mg/dL Est GFR (CKD-EPI)AfAm >90 (>60 ml/min/1.73 sqM) Est GFR (CKD-EPI)NonAf >90 (>60 ml/min/1.73 sqM) Glucose 103 H (74-99) mg/dL Calcium 9.4 (8.4-10.2) mg/dL Total Bilirubin 0.4 (0.2-1.3) mg/dL AST 39 (17-59) U/L ALT 69 (21-72) U/L Alkaline Phosphatase 60 (38-126) U/L Total Protein 7.2 (6.3-8.2) g/dL Albumin 4.0 (3.5-5.0) g/dL Disposition Clinical Impression: Rectal or anal pain Disposition: HOME SELF-CARE Condition: Stable Instructions (If sedation given, give patient instructions): Rectal Abscess (ED) Additional Instructions: Please take prescribed medication as directed. Please follow up with Dr. Hoyt. Please return to emergency department if symptoms worsen. Prescriptions: metroNIDAZOLE [Flagyl] 500 mg PO TID #30 tab Hydrocortisone Cream [Hydrocortisone 1% Cream] 1 applic TOPICAL TID #1 bottle Is patient prescribed a controlled substance at d/c from ED?: No Referrals: Louie Lipscomb DO [Primary Care Provider] - 1-2 days Time of Disposition: 23:16
[2019-03-11 22:35] LABS: Basophils % (A) 0 %; Eosinophils # (A) 0.1 k/uL (0-0.7); Eosinophils % (A) 1 %; HCT 46.1 % (39.0-53.0); HGB 15.5 gm/dL (13.0-17.5); Lymphocytes # (A) 2.6 k/uL (1.0-4.8); Lymphocytes % (A) 28 %; MCH 30.7 pg (25.0-35.0); MCHC 33.5 g/dL (31.0-37.0); MCV 91.6 fL (80.0-100.0); Mean Platelet Volume 6.2; Monocytes # (A) 0.9 k/uL (0-1.0); Monocytes % (A) 9 %; Neutrophils # (A) 5.4 k/uL (1.3-7.7); Neutrophils % (A) 59 %; Platelet Count 337 k/uL (150-450); RBC 5.04 m/uL (4.30-5.90); RDW 12.8 % (11.5-15.5); WBC 9.2 k/uL (3.8-10.6)
[2019-03-11 22:44] LABS: ALT 69 U/L (21-72); AST 39 U/L (17-59); African American GFR (CKD) >90 (>60 ml/min/1.73 sqM); Alkaline Phosphatase 60 U/L (38-126); Anion Gap 7 mmol/L; Blood Urea Nitrogen 20 mg/dL (9-20); Calcium 9.4 mg/dL (8.4-10.2); Carbon Dioxide 25 mmol/L (22-30); Chloride 108 mmol/L (98-107); Glucose 103 mg/dL (74-99); Non-African American GFR(CKD) >90 (>60 ml/min/1.73 sqM); Potassium 4.4 mmol/L (3.5-5.1); Sodium 140 mmol/L (137-145); Total Bilirubin 0.4 mg/dL (0.2-1.3); Total Protein 7.2 g/dL (6.3-8.2)
--- NOTE | 2019-03-11 22:57 | CT ---
EXAMINATION TYPE: CT abdomen pelvis w con DATE OF EXAM: 03/11/2019 COMPARISON: 07/10/2018 HISTORY: abdominal and anal pain. hx of Crohns. CT DLP: 982.3 mGycm Automated exposure control for dose reduction was used. CONTRAST: Performed with IV Contrast, patient injected with 100 mL of Isovue 300. Lung bases are clear. There is no pleural effusion. Heart size is normal. There is 1 cm cysts in the anterior liver. The bile ducts are not dilated. Gallbladder appears normal . There is no pancreatic mass. Stomach appears normal. Spleen is intact. There is no adrenal mass. Kidneys show satisfactory contrast opacification. There is no hydronephrosi s. There is normal excretion on the delayed images. There is 2 cm cortical cyst lateral left kidney. There is no retroperitoneal adenopathy. There is small umbilical hernia that contains fat. Bladder distends smoothly. There is no free fluid in the pelvis. There are small right renal cortical cysts that measure less than 1 cm. There is no ascites. There is no free air. There is no mesenteric edema. There is no sign of a bowel obstruction. There is some mild rectal wall thickening. No other intestinal wall thickening seen. Patrick endix not seen. No sign of thickened appendix. Lumbar spine is intact. There is multilevel degenerative disc change. There is no compression fractur e. Bony pelvis appears intact. IMPRESSION: There is mild chronic rectal wall thickening not significantly different than last exam. No bowel obs truction. No convincing evidence of active Crohn's disease.
[2019-03-11 23:25] VITALS: BP 132/90; PULSE 60; TEMP 98.2
== END 2019-03-11 23:28 | disposition home or self-care (01) ==
LOC: EC 20:56
DX: K62.89 Other specified diseases of anus and rectum (principal); R15.2 Fecal urgency; F17.200 Nicotine dependence, unspecified, uncomplicated; Z98.890 Other specified postprocedural states; Z87.19 Personal history of other diseases of the digestive system
CPT/HCPCS: 36415; 80053; 85025; 74177; 99284; Q9967

== ENCOUNTER → 2019-05-07 | Outpatient (CLI) | payer MEDICARE | END | disposition home or self-care (01) | LOC: LABWHC1 15:29 | PROVIDERS: ATTEND Anesthesiology | DX: Z01.812 Encounter for preprocedural laboratory examination (principal) | CPT/HCPCS: 36415; 84132 ==

== ENCOUNTER 2019-07-27 11:40 | Emergency (ER) | payer MEDICARE ==
[2019-07-27 11:46] VITALS: RESP 18; TEMP 98.1
[2019-07-27] MEDS ORDERED: DIPH,PERTUS(ACELL)TETVAC-LF 0.5 ML VIAL IM ONE (12:03)
[2019-07-27] MEDS ORDERED: LIDOCAINE 1% INJ 10MG/ML (20 ML MDV) SQ STA (12:03)
--- NOTE | 2019-07-27 12:58 | CT ---
EXAMINATION TYPE: CT brain dylan balderas DATE OF EXAM: 07/27/2019 COMPARISON: 03/18/2016 HISTORY: Left sided frontal injury with laceration. CT DLP: 1457.[address] of the brain was performed. The ventricles, basal cisterns and sulci overlying the cerebral convexities demonstrate mild enlargem ent. There is no evidence for intracranial hemorrhage or sulcal effacement. There is decreased attenuatio n about the periventricular white matter and deep white matter of both cerebral hemispheres, compatib le with chronic small vessel ischemia. No mass effects are seen. If symptoms persist consider MRI. Osseous calvarium is intact. IMPRESSION: 1. Age related atrophic and chronic small vessel ischemic change without acute intracranial process seen at this time. CT Cervical Spine: Unenhanced CT of the cervical spine was performed with bone and soft tissue window settings submitted . Coronal and sagittal reconstruction is obtained. There is normal alignment and prevertebral soft tissues. No evidence for acute cervical fracture . Scattered degenerative disc disease and spondylosis. Biapical scarring. IMPRESSION: 1. No evidence for acute fracture or subluxation of the cervical spine.
[2019-07-27] MEDS ORDERED: ACETAMINOPHEN TAB 500 MG TAB PO STA (13:28)
[2019-07-27] MEDS ORDERED: CEPHALEXIN 500MG STARTER PACK 4 CAP BTL PO STA (13:35)
--- NOTE | 2019-07-27 13:44 | ED ---
General Adult HPI - General Chief complaint: Wound/Laceration Stated complaint: head lac Time Seen by Provider: 07/27/19 11:52 Source: patient, RN notes reviewed, old records reviewed Mode of arrival: ambulatory Limitations: no limitations - History of Present Illness Initial comments: 58-year-old male patient passed no history of Crohn's disease previously for chief complaint of laceration on head. Patient reports that he was holding a piece of steel which she does report was salma above his head. Patient reports that it was approximately 12 feet long may have weighed between 50 and 60 pounds. He states that he was standing on a table approximately 3 feet above the ground when the table partially collapsed. Patient reports that he had a controlled descent to the ground however in the process he lost his machine stapler on the piece of metal. It slid from his hand causing a laceration to his/scalp region as well as his left dorsal forearm. He denies any loss of consciousness. He denies any thinners. He does not know the date of last tetanus. Reports that he had some mild waxing and waning blurry vision and a generalized headache which developed after. Systemic: Pt denies fatigue, fever/chills, rash. Pt denies weakness, night sweats, weight loss. Neuro: Pt denies headache, visual disturbances, syncope or pre-syncope. HEENT: Pt denies ocular discharge or irritation, otalgia, rhinorrhea, pharyngitis or notable lymphadenopathy. Cardiopulmonary: Pt denies chest pain, SOB, heart palpitations, dyspnea on exertion. Abdominal/GI: Pt denies abdominal pain, n/v/d. : Pt denies dysuria, burning w/ urination, frequency/urgency. Denies new onset urinary or bowel incontinence. MSK: Pt denies myalgia, loss of strength or function in extremities. Neuro: Pt denies new onset weakness, paresthesias. - Related Data Home Medications Medication Instructions Recorded Confirmed Glucos Sul 2Kcl/MSM/Chond/C/Mn 1 each PO DAILY 07/27/19 07/27/19 [Glucosamine Chondroitin Cap] Hydrocodone/Acetaminophen [[place] 1 tab PO TID PRN 07/27/19 07/27/19 10-325] Omeprazole 20 mg PO DAILY 07/27/19 07/27/19 Potassium Gluconate 99 mg PO DAILY 07/27/19 07/27/19 Previous Rx's Medication Instructions Recorded Cephalexin [Keflex] 500 mg PO Q12HR 3 Days #6 cap 07/27/19 Allergies Allergy/AdvReac Type Severity Reaction Status Date / Time No Known Allergies Allergy Verified 07/27/19 12:21 Review of Systems ROS Statement: Those systems with pertinent positive or pertinent negative responses have been documented in the HPI. ROS Other: All systems not noted in ROS Statement are negative. Past Medical History Past Medical History: Osteoarthritis (OA), Sleep Apnea/CPAP/BIPAP Additional Past Medical History / Comment(s): crohns, stewart rectal abcesses, perianal abscesses, lt hand /wrist fx-casted, kidney stone, NO CPAP History of Any Multi-Drug Resistant Organisms: None Reported Past Surgical History: Appendectomy, Bowel Resection, Hernia Repair Additional Past Surgical History / Comment(s): multiple colonoscopies, 2 bowel resections age 17 and 29, x6 i&d's d/t fistulas d/t crohns. Past Anesthesia/Blood Transfusion Reactions: No Reported Reaction Past Psychological History: No Psychological Hx Reported Smoking Status: Current every day smoker Past Alcohol Use History: Occasional Past Drug Use History: None Reported - Past Family History Father Family Medical History: Cancer Additional Family Medical History / Comment(s): bladder cancer, ddd Mother Family Medical History: Hyperlipidemia, Hypertension General Exam - General Exam Comments Initial Comments: Constitutional: NAD, AOX3, Pt has pleasant affect. HEENT: NC/AT, trachea midline, neck supple, no lymphadenopathy. Posterior phar ynx non erythematous, without exudates. External ears appear normal, without discharge. Mucous membranes moist. Eyes PERRLA, EOM intact. There is no scleral icterus. No pallor noted. Cardiopulmonary: RRR, no murmurs, rubs or gallops, no JVD noted. Lungs CTAB in anterior and posterior zavaleta. No peripheral edema. Abdominal exam: Abdomen soft and non-distended. Abdomen non-tender to palpation in all 4 quadrants. Bowel sounds active in LLQ. No hepatosplenomegaly. No ecchymosis Neuro: CN II-XII intact. No nuchal rigidity. No raccon eyes, no cano sign, no hemotympanum. No cervical spinal tenderness. MSK: 4 cm laceration left forehead/scalp region. Vigorously irrigated. No foreign body or osseous involvement noted. Approximated with 2 simple interrupted sutures and 2 chaz. 4cm laceration left dorsal forearm, superficial. Approximated with 4 simple interrupted sutures. vigorously irrigated. No posterior calf tenderness bilaterally, homans sign negative bilaterally. Posterior tibialis and radial pulse +2 bilaterally. Sensation intact in upper and lower extremities. Full active ROM in upper and lower extremities, 5/5 stregnth. Limitations: no limitations Course Vital Signs 07/27/19 11:42 Temperature 98.1 F Pulse Rate 76 Respiratory 18 Rate Blood Pressure 152/101 O2 Sat by Pulse 96 Oximetry Medical Decision Making - Medical Decision Making 58-year-old male patient passed no history of Crohn's disease previously for chief complaint of laceration on head. Patient reports that he was holding a piece of steel which she does report was salma above his head. Patient reports that it was approximately 12 feet long may have weighed between 50 and 60 pounds. He states that he was standing on a table approximately 3 feet above the ground when the table partially collapsed. Patient reports that he had a controlled descent to the ground however in the process he lost his machine stapler on the piece of metal. It slid from his hand causing a laceration to his/scalp region as well as his left dorsal forearm. He denies any loss of consciousness. He denies any thinners. He does not know the date of last tetanus. Reports that he had some mild waxing and waning blurry vision and a generalized headache which developed after. Patient vital signs stable, afebrile. Physical exam displayed: CN II-XII intact. No nuchal rigidity. No raccon eyes, no cano sign, no hemotympanum. No cervical spinal tenderness. 4 cm laceration left forehead/scalp region. Vigorously irrigated. No foreign body or osseous involvement noted. Approximated with 2 simple interrupted sutures and 2 chaz. 4cm laceration left dorsal forearm, superficial. Approximated with 4 simple interrupted sutures. vigorously irrigated. Patient will be placed on prophylactic antibiotics for 3 days. Tetanus was updated. Reports that vision back to baseline. Will be discharged with return precautions. Case discussed with Dr. Sawyer. Disposition Clinical Impression: Laceration Disposition: HOME SELF-CARE Condition: Stable Instructions (If sedation given, give patient instructions): Laceration (ED), Care For Your Stitches (ED) Additional Instructions: Patient to adhere to previously discussed treatment plan and will take medication(s) as directed. Take keflex twice daily for next 3 days. Patient to follow up with PCP in 1-2 days. Patient to return to ED if symptoms do not improve. Please return for suture removal: Hand: 7-10 days Face: 5 days Chest/abdomen: 12-14 days Extremities: 7-10 days Scalp: 7 days Eyebrow: 5-7 days Foot/sole: 12-14 days Please monitor for signs and symptoms of infection including: redness, warmth, drainage, discharge. Please return to ED if these signs or symptoms occur, new signs or symptoms develop or if condition worsens in anyway. Prescriptions: Cephalexin [Keflex] 500 mg PO Q12HR 3 Days #6 cap Is patient prescribed a controlled substance at d/c from ED?: No Referrals: Louie Lipscomb DO [Primary Care Provider] - 1-2 days
[2019-07-27 14:24] VITALS: BP 139/78; PULSE 68
== END 2019-07-27 14:15 | disposition home or self-care (01) ==
LOC: EC 11:40
DX: S01.81XA Laceration without foreign body of other part of head, initial encounter (principal); S51.812A Laceration without foreign body of left forearm, initial encounter; H53.8 Other visual disturbances; M19.90 Unspecified osteoarthritis, unspecified site; F17.200 Nicotine dependence, unspecified, uncomplicated; G47.30 Sleep apnea, unspecified; Z99.89 Dependence on other enabling machines and devices; Z79.899 Other long term (current) drug therapy; Z79.891 Long term (current) use of opiate analgesic; Z23 Encounter for immunization; W20.8XXA Other cause of strike by thrown, projected or falling object, initial encounter; Y92.009 Unspecified place in unspecified non-institutional (private) residence as the place of occurrence of the external cause
CPT/HCPCS: 72125; 70450; 90715; 99284; 12002; 12013; 90471; J2001

== ENCOUNTER → 2019-09-04 | Outpatient (CLI) | payer MEDICARE ==
--- NOTE | 2019-09-04 11:52 | MR ---
EXAMINATION TYPE: MR shoulder RT wo con DATE OF EXAM: 09/04/2019 COMPARISON: None HISTORY: Right Shoulder Pain with Numbness into Right Hand. TECHNIQUE: Multiplanar, multisequence imaging of the right shoulder is performed without contrast. FINDINGS: ROTATOR CUFF: There is increased intermediate signal throughout the distal margin of the supraspinatu s tendon extending to the insertion. Findings compatible with tendinopathy and partial intrasubstance tear with no through thickness tear or retraction. Most marked findings are involving the anterior f ibers Infraspinatus tendon has a normal appearance. Subscapularis tendon has a normal appearance. The bicipital tendon is well situated within the bicipital groove. Intracapsular portion of the bicep s tendon and biceps anchor have a normal appearance. There is hypertrophic change and narrowing of the AC joint. Mild mass effect upon the supraspinatus t endon and musculotendinous junction noted. Bony labrum are intact. The glenohumeral ligaments are intact. There is no sizable joint effusion. IMPRESSION: 1. Diffuse tendinopathy of the distal supraspinatus tendon with partial intrasubstance tear involving the anterior fibers but no through thickness tear or retraction. 2. Impingement secondary to AC joint arthropathy.
== END | disposition home or self-care (01) ==
LOC: RADMRIMAIN 10:14
PROVIDERS: ATTEND Family Medicine
DX: M12.811 Other specific arthropathies, not elsewhere classified, right shoulder (principal)

== ENCOUNTER 2019-11-07 19:57 | Emergency (ER) | payer MEDICARE ==
[2019-11-07 20:15] VITALS: BP 137/83; PULSE 70; RESP 18; TEMP 98.1
--- NOTE | 2019-11-07 20:39 | ED ---
General Adult HPI - General Chief complaint: Extremity Problem,Nontraumatic Stated complaint: R Calf Pain/ Swelling Time Seen by Provider: 11/07/19 20:17 Source: patient, RN notes reviewed Mode of arrival: ambulatory Limitations: no limitations - History of Present Illness Initial comments: 58-year-old male with a past medical history of Crohn's disease presents to the emergency department for a chief complaint of right calf pain. Patient states 4 days ago he started some mild pain in the right calf. Patient reports that his chronic left ankle pain has been worse than normal and he has been limping on the right leg more. Patient states he may have pulled a muscle in the right leg. He denies any other injuries. He states his wanted him evaluated for a blood clot. Patient does not have any history of blood clots. Patient does not take thinners. He does not have any bleeding disorders.Patient has no other complaints at this time including shortness of breath, chest pain, abdominal pain, nausea or vomiting, headache, or visual changes. - Related Data Home Medications Medication Instructions Recorded Confirmed Glucos Sul 2Kcl/MSM/Chond/C/Mn 1 each PO DAILY 07/27/19 07/27/19 [Glucosamine Chondroitin Cap] Hydrocodone/Acetaminophen [[place] 1 tab PO TID PRN 07/27/19 07/27/19 10-325] Omeprazole 20 mg PO DAILY 07/27/19 07/27/19 Potassium Gluconate 99 mg PO DAILY 07/27/19 07/27/19 Previous Rx's Medication Instructions Recorded Cephalexin [Keflex] 500 mg PO Q12HR 3 Days #6 cap 07/27/19 Allergies Allergy/AdvReac Type Severity Reaction Status Date / Time No Known Allergies Allergy Verified 11/07/19 20:15 Review of Systems ROS Statement: Those systems with pertinent positive or pertinent negative responses have been documented in the HPI. ROS Other: All systems not noted in ROS Statement are negative. Past Medical History Past Medical History: Osteoarthritis (OA), Sleep Apnea/CPAP/BIPAP Additional Past Medical History / Comment(s): crohns, stewart rectal abcesses, perianal abscesses, lt hand /wrist fx-casted, kidney stone, NO CPAP History of Any Multi-Drug Resistant Organisms: None Reported Past Surgical History: Appendectomy, Bowel Resection, Hernia Repair Additional Past Surgical History / Comment(s): multiple colonoscopies, 2 bowel resections age 17 and 29, x6 i&d's d/t fistulas d/t crohns. Past Anesthesia/Blood Transfusion Reactions: No Reported Reaction Past Psychological History: No Psychological Hx Reported Smoking Status: Current every day smoker Past Alcohol Use History: Occasional Past Drug Use History: None Reported - Past Family History Father Family Medical History: Cancer Additional Family Medical History / Comment(s): bladder cancer, ddd Mother Family Medical History: Hyperlipidemia, Hypertension General Exam Limitations: no limitations General appearance: alert, in no apparent distress Head exam: Present: atraumatic, normocephalic, normal inspection Eye exam: Present: normal appearance, PERRL, EOMI. Absent: scleral icterus, conjunctival injection, periorbital swelling ENT exam: Present: normal exam, mucous membranes moist Neck exam: Present: normal inspection, full ROM. Absent: tenderness, meningismus, lymphadenopathy Respiratory exam: Present: normal lung sounds bilaterally. Absent: respiratory distress, wheezes, rales, rhonchi, stridor Cardiovascular Exam: Present: regular rate, normal rhythm, normal heart sounds. Absent: systolic murmur, diastolic murmur, rubs, gallop, clicks GI/Abdominal exam: Present: soft, normal bowel sounds. Absent: distended, tenderness, guarding, rebound, rigid Extremities exam: Present: full ROM (full range of motion of the right leg.), normal capillary refill (capillary refill less than 2 seconds, PT pulse 2+ right lower extremity.), calf tenderness (patient does have tenderness in the right calf with mild edema. No streaking erythema.). Absent: joint swelling Course Vital Signs 11/07/19 20:12 Temperature 98.1 F Pulse Rate 70 Respiratory 18 Rate Blood Pressure 137/83 O2 Sat by Pulse 95 Oximetry Medical Decision Making - Medical Decision Making Ultrasound shows no convincing evidence for DVT in the right leg.patient likely has pain in the right calf secondary to antalgic gait from acute exacerbation of chronic left ankle pain. Patient will take Motrin and Tylenol for pain and will follow up with his doctor. However he did recommend that if he has worsening symptoms he is to return here to the emergency department. He is in agreement with this.I discussed this case with attending Dr. Steel who agrees with this assessment and treatment plan. Disposition Clinical Impression: Calf pain Disposition: HOME SELF-CARE Condition: Good Instructions (If sedation given, give patient instructions): Leg Pain (ED) Additional Instructions: please take Motrin or Tylenol for pain. Please follow-up with your doctor in one to 2 days. If you have any worsening symptoms return or to the emergency room. Is patient prescribed a controlled substance at d/c from ED?: No Referrals: Louie Lipscomb DO [Primary Care Provider] - 1-2 days Time of Disposition: 21:41
--- NOTE | 2019-11-07 21:17 | US ---
EXAMINATION TYPE: US venous doppler duplex LE RT DATE OF EXAM: 11/07/2019 9:07 PM COMPARISON: NONE, LLEV 2015 CLINICAL HISTORY: clot. Pain right calf x 4 days. Patient does not take blood thinners. SIDE PERFORMED: Right TECHNIQUE: The lower extremity deep venous system is examined utilizing real time linear array sonog merly with graded compression, doppler sonography and color-flow sonography. VESSELS IMAGED: External Iliac Vein (EIV) Common Femoral Vein Deep Femoral Vein Greater Saphenous Vein * Femoral Vein Popliteal Vein Small Saphenous Vein * Proximal Calf Veins (* superficial vessels) Right Leg: There appears to be a slight color defect at the bifurcation of the CFV into the proximal femoral vein and deep femoral vein. Internal echoes seen. Branches of deep femoral vein versus possi ble thrombus. No evidence of DVT in remaining vein segments imaged at this time. IMPRESSION: There is no convincing evidence for deep vein thrombosis in the right leg.
== END 2019-11-07 21:56 | disposition home or self-care (01) ==
LOC: EC 19:57
DX: M79.661 Pain in right lower leg (principal); M25.572 Pain in left ankle and joints of left foot; G89.29 Other chronic pain; G47.30 Sleep apnea, unspecified; F17.200 Nicotine dependence, unspecified, uncomplicated; Z79.899 Other long term (current) drug therapy
CPT/HCPCS: 99283

== ENCOUNTER → 2019-12-27 | Outpatient (CLI) | payer MEDICARE ==
--- NOTE | 2019-12-28 07:49 | MR ---
EXAMINATION TYPE: MR knee RT wo con DATE OF EXAM: 12/27/2019 COMPARISON: Outside right knee x-ray December 04, 2019. HISTORY: Rt knee pain and swelling x 6 weeks TECHNIQUE: Multiplanar, multisequence images of the knee is performed without IV contrast. FINDINGS: MEDIAL MENISCUS: Medial extrusion of medial meniscus on coronal images. Oblique signal posterior horn of medial meniscus extends to the inferior articular surface sagittal image 8. Anterior horn is inta ct. LATERAL MENISCUS: Anterior and posterior horns are intact without tear. CRUCIATE LIGAMENTS: The anterior and posterior cruciate ligaments are intact and unremarkable. COLLATERAL LIGAMENTS: The medial collateral ligament and lateral collateral ligament complex are inta ct. Some fluid signal surrounds the medial collateral ligament. EXTENSOR MECHANISM: Visualized quadriceps and patellar tendons are intact. EFFUSION: Small suprapatellar joint effusion. POPLITEAL CYST: Small popliteal/zamarripa cyst. TRICOMPARTMENT SPACES: Mild/moderate tricompartment joint space loss with mild spurring. CARTILAGE: Some chondromalacia patella with thinning of articular cartilage along the posterior reynolds lar pole. BONE MARROW SIGNAL: Horizontal low T1 signal in the proximal tibial epiphysis medial aspect with surr ounding T2 hyperintensity through the metaphysis extending centrally. No bony fracture fragments. OTHER: No additional significant abnormality is appreciated. IMPRESSION: 1. Suspect subchondral insufficiency fracture medial aspect proximal tibial plateau with associated o sseous contusion through the medial proximal tibial metaphysis. 2. Full-thickness tear posterior horn of medial meniscus. 3. Mild MCL sprain injury. 4. Mild/moderate tricompartmental degenerative changes as detailed above. 5. Small suprapatellar joint effusion. 6. Small popliteal cyst.
== END | disposition home or self-care (01) ==
LOC: RADMRIMAIN 13:23
PROVIDERS: ATTEND Orthopaedic Surgery
DX: S83.231A Complex tear of medial meniscus, current injury, right knee, initial encounter (principal)

== ENCOUNTER → 2020-01-21 | Outpatient (CLI) | payer MEDICARE ==
[2020-01-21 16:13] LABS: Basophils % (A) 0 %; Eosinophils # (A) 0.1 k/uL (0-0.7); Eosinophils % (A) 1 %; HCT 49.3 % (39.0-53.0); HGB 15.8 gm/dL (13.0-17.5); Lymphocytes # (A) 2.4 k/uL (1.0-4.8); Lymphocytes % (A) 31 %; MCH 29.8 pg (25.0-35.0); MCV 93.1 fL (80.0-100.0); Mean Platelet Volume 7.1; Monocytes # (A) 0.6 k/uL (0-1.0); Monocytes % (A) 8 %; Neutrophils # (A) 4.3 k/uL (1.3-7.7); Neutrophils % (A) 57 %; Platelet Count 317 k/uL (150-450); RBC 5.29 m/uL (4.30-5.90); RDW 13.3 % (11.5-15.5); WBC 7.6 k/uL (3.8-10.6)
[2020-01-22 01:07] LABS: Anion Gap 7.7 mmol/L (4.00-12.00); Carbon Dioxide 24.3 mmol/L (21.6-31.8)
== END | disposition home or self-care (01) ==
LOC: LABWHC1 15:16
PROVIDERS: ATTEND Orthopaedic Surgery
DX: Z01.812 Encounter for preprocedural laboratory examination (principal); M23.91 Unspecified internal derangement of right knee
CPT/HCPCS: 36415; 80051; 85025

== ENCOUNTER 2020-02-06 08:30 | Day surgery (SDC) | payer MEDICARE ==
[2020-02-05 09:41] VITALS: BMI 26.2
--- NOTE | 2020-02-05 14:07 | HP ---
HISTORY AND PHYSICAL DATE OF SERVICE: 02/06/2020 Biju Duncan is a 59-year-old gentleman seen with progressive right knee pain. We discussed options. He elected to proceed with right knee arthroscopy. Consent was obtained. PAST MEDICAL HISTORY: Crohn's disease. PAST SURGICAL HISTORY: Partial bowel resection. DAILY MEDICATIONS: [place]. ALLERGIES: None. SOCIAL HISTORY: Smokes cigarettes. PHYSICAL EVALUATION RIGHT KNEE: His range of motion is -1 - 2-120. Mild effusion. Tenderness medial joint line. Positive medial Farhad's. Ligaments stable. Hip rotation without pain. Distal neurovascular exam is intact. RIGHT KNEE RADIOGRAPHS: Revealed mild osteoarthritis. Right knee MRI revealed medial meniscal tear. IMPRESSION: 1. Internal derangement, right knee with medial meniscal tear. 2. Chronic opioid use. 3. Tobacco use. PLAN: Right knee arthroscopy with partial meniscectomy, partial synovectomy and debridement. MMODL / IJN: [id number] /
[~2020-02-06 08:30] MED LIST changes: +DEXAMETHASONE SOD PHOSPHATE 10 MG/ML 1 ML VIAL IV ONE; -LIDOCAINE 1% INJ 10MG/ML (20 ML MDV) ONE; +ONDANSETRON 4 MG/2 ML VIAL IVP ONE; -PROPOFOL 10 MG/ML 20 ML VIAL IV ONE
[2020-02-06 09:02] VITALS: RESP 16
[2020-02-06] MEDS ORDERED: LIDOCAINE 1% (10MG/ML) FOR IV START IV ONE (09:10)
[2020-02-06] MEDS ORDERED: PROPOFOL 10 MG/ML 20 ML VIAL IV ONE (10:31)
[2020-02-06] MEDS ORDERED: fentaNYL (PF) 50 MCG/ML 2 ML AMP ONE (10:31)
[2020-02-06] MEDS ORDERED: LIDOCAINE 1% INJ 10MG/ML (20 ML MDV) ONE (10:31)
[2020-02-06] MEDS ORDERED: MIDAZOLAM 2 MG/2 ML VIAL ONE (10:31)
[2020-02-06] MEDS ORDERED: ePHEDrine SULFATE/0.9% NACL/PF 50 MG/5 ML SYRINGE IV ONE (10:31)
[2020-02-06] MEDS ORDERED: SUCCINYLCHOLINE CHLORIDE 100 MG/5 ML SYR IV ONE (10:31)
[2020-02-06] MEDS ORDERED: BUPIVACAINE (PF) 0.25% 30 ML VIAL INTRAARTIC ONE ×2 (10:33→11:13)
[2020-02-06 11:29] VITALS: TEMP 97.2
--- NOTE | 2020-02-06 11:31 | P.OP ---
Date of Procedure: 02/06/20 Preoperative Diagnosis: Internal derangement right knee Postoperative Diagnosis: 1. Tear medial meniscus right knee 2. Grade 2 chondromalacia medial femoral condyle right knee 3. Reactive synovitis medial, lateral and suprapatellar compartments right knee Procedure(s) Performed: 1. Arthroscopic partial medial meniscectomy right knee 2. Arthroscopic chondroplasty medial femoral condyle right knee 3. Arthroscopic partial synovectomy medial, lateral and suprapatellar compartments right knee Anesthesia: DELILAHA, local Surgeon: Bud Jennings Estimated Blood Loss (ml): 5 Pathology: none sent Condition: stable Disposition: PACU Indications for Procedure: 59-year-old gentleman seen with progressive right knee pain. After treatment options were discussed, he elected to proceed with arthroscopy. Operative Findings: see description of procedure Description of Procedure: Patient was taken to the operative suite. Patient underwent a general anesthetic by the department of anesthesia. Patient was given preoperative antibiotics. The right lower extremity was placed in a well-padded arthroscopic leg sheets. The right leg was prepped and draped in the normal sterile orthopedic fashion. A lateral parapatellar and suprapatellar incision was made. Trochars were inserted. Arthroscopy was initiated. Suprapatellar pouch revealed diffuse thick reactive synovitis. The patellofemoral joint appeared to articulate congruently. There was grade 2 chondromalacia of the patella with no osteochondral tears present. The scope was guided into the medial gutter. No loose bodies or plica were identified. The scope was then guided into the medial compartment. A medial parapatellar incision was made. Trocar inserted followed by probe. There was a complex tear posterior horn medial meniscus extending into the midbody area. There was an area of grade 2 chondromalacia weightbearing surface medial femoral condyle with some osteochondral flap tears present. There was some thick reactive synovitis anteriorly. I performed a partial medial meniscectomy. I performed a chondroplasty of the medial femoral condyle. I performed a partial synovectomy decompressing the reactive synovitis. The residual meniscus was found to be stable. The residual osteochondral surface of the medial femoral condyle was stable. There was good decompression of the synovitis. Scope and probe were then guided into the intercondylar notch. Cruciates were identified, probed and found to be stable. The scope and probe were then guided into lateral compartment. Lateral meniscus was probed and found to be stable. There was thick reactive synovitis anteriorly. The osteochondral surface was stable. I performed a partial synovectomy decompressing the reactive synovitis. The shaver was removed. There was good decompression of the synovitis. The scope was in guided back into the suprapatellar compartment. I introduced a motorized shaver into the suprapatellar compartment. I debrided some piecemeal fragments of meniscus I encountered. I performed a partial synovectomy. The shaver was removed. There was good decompression of the synovitis. I took one more look on the entire knee, no residual debris. Instruments were now removed from the joint. The joint was infiltrated with .25% Marcaine. Steri-Strips were applied to the portal sites. Sterile dressings were applied. The patient was placed into a TE D hose. No tourniquet was utilized. The patient was awakened, transferred to a bed and taken to recovery stable satisfactory condition.
[2020-02-06] MEDS: HYDROmorphone 0.5 MG/0.5 ML SYRINGE IVP PRN ×2 (11:40→11:45)
[2020-02-06] MEDS ORDERED: KETOROLAC 15 MG/ML 1 ML VIAL IVP ONE (11:50)
[2020-02-06] MEDS ORDERED: HYDROcodone/APAP 10-325MG 1 EACH TAB ONE (12:14)
[2020-02-06] MEDS ORDERED: HYDROcodone/APAP 10-325MG 1 EACH TAB PO ONE (12:16)
[2020-02-06 12:57] VITALS: BP 130/84; PULSE 71
== END 2020-02-06 13:32 | disposition home or self-care (01) ==
LOC: OR 08:30
PROVIDERS: ATTEND Orthopaedic Surgery
DX: M23.203 Derangement of unspecified medial meniscus due to old tear or injury, right knee (principal); M94.261 Chondromalacia, right knee; M65.861 Other synovitis and tenosynovitis, right lower leg; M17.11 Unilateral primary osteoarthritis, right knee; K50.90 Crohn's disease, unspecified, without complications; Z90.49 Acquired absence of other specified parts of digestive tract; F17.210 Nicotine dependence, cigarettes, uncomplicated; G47.33 Obstructive sleep apnea (adult) (pediatric); Z99.89 Dependence on other enabling machines and devices; N42.9 Disorder of prostate, unspecified; G47.00 Insomnia, unspecified; K21.9 Gastro-esophageal reflux disease without esophagitis; K61.0 Anal abscess; Z97.2 Presence of dental prosthetic device (complete) (partial); Z79.899 Other long term (current) drug therapy; Z79.891 Long term (current) use of opiate analgesic
CPT/HCPCS: 29881; 29876; J2250; J1100; J0690; J2405; J2001; J3010; J1885; J0330; J2704; J1170

== ENCOUNTER → 2020-03-21 | Outpatient (CLI) | payer MEDICARE ==
--- NOTE | 2020-03-21 12:57 | XR ---
EXAMINATION TYPE: XR abdomen 1V DATE OF EXAM: 03/21/2020 COMPARISON: 07/10/2018 HISTORY: Left flank pain TECHNIQUE: One view abdominal series FINDINGS: The osseous structures are intact. The bowel gas pattern is nonspecific. Hypertrophic and degenerati ve changes spine. Arthropathy of the hips. Calcifications in the pelvis are stable dating back to the prior exam. No suspicious calcification overlying the renal outlines. IMPRESSION: 1. Nonspecific abdomen.
== END | disposition home or self-care (01) ==
LOC: RADXRMAIN 12:34
PROVIDERS: ATTEND Family Medicine
DX: N20.0 Calculus of kidney (principal)
CPT/HCPCS: 74018

== ENCOUNTER 2020-11-04 19:10 | Emergency (ER) | payer MEDICARE ==
[2020-11-04 19:19] VITALS: BP 108/65; PULSE 68; RESP 16; TEMP 97.8
--- NOTE | 2020-11-04 20:49 | US ---
EXAMINATION TYPE: US venous doppler duplex LE RT DATE OF EXAM: 11/04/2020 8:24 PM COMPARISON: US 2019 CLINICAL HISTORY: pain/swelling. Pain and swelling x 6 weeks. No hx of DVT. Patient does not take blo od thinners. SIDE PERFORMED: Right TECHNIQUE: The lower extremity deep venous system is examined utilizing real time linear array sonog merly with graded compression, doppler sonography and color-flow sonography. VESSELS IMAGED: Common Femoral Vein Deep Femoral Vein Greater Saphenous Vein * Femoral Vein Popliteal Vein Small Saphenous Vein * Proximal Calf Veins (* superficial vessels) Right Leg: Slight color defect seen at the bifurcation of femoral vein and deep femoral vein branche s, possibly due to artifact. No definite evidence of DVT. All veins imaged appear to compress. IMPRESSION: No sign of deep vein thrombosis in the right leg.
[2020-11-04] MEDS ORDERED: KETOROLAC 15 MG/ML 1 ML VIAL IM STA (21:24)
[2020-11-04] MEDS ORDERED: methylPREDNISolone SOD SUCCI 125 MG/2 ML VIAL IM ONE (21:24)
--- NOTE | 2020-11-04 21:34 | ED ---
General Adult HPI - General Chief complaint: Extremity Problem,Nontraumatic Stated complaint: Leg pain/sent from PCP Poss DVT Time Seen by Provider: 11/04/20 21:06 Source: patient Mode of arrival: ambulatory Limitations: no limitations - History of Present Illness Initial comments: 59-year-old male with a past medical history of Crohn'ss, arthritis, knee pain presents to the emergency room for treatment of right knee pain. Patient states he has had right knee pain for about 6 weeks. States it radiates into the anterior aspect of his lower leg as well as up his thigh at times. Patient does have a history of sciatica as well. Patient initially did think this was sciatica and went to his chiropractor but it did not help. Patient denies bladder or bowel changes, saddle anesthesia, weakness of the legs, or fevers. Patient saw his today who sent him in for an ultrasound. - Related Data Home Medications Medication Instructions Recorded Confirmed Hydrocodone/Acetaminophen [[place] 1 tab PO TID 07/27/19 11/04/20 10-325] Omeprazole 40 mg PO HS 11/04/20 11/04/20 Terazosin [Hytrin] 5 mg PO HS 11/04/20 11/04/20 Allergies Allergy/AdvReac Type Severity Reaction Status Date / Time No Known Allergies Allergy Verified 11/04/20 21:53 Review of Systems ROS Statement: Those systems with pertinent positive or pertinent negative responses have been documented in the HPI. ROS Other: All systems not noted in ROS Statement are negative. Past Medical History Past Medical History: Osteoarthritis (OA), Sleep Apnea/CPAP/BIPAP Additional Past Medical History / Comment(s): crohns, stewart rectal abcesses, perianal abscesses, lt hand /wrist fx-casted, kidney stone, NO CPAP History of Any Multi-Drug Resistant Organisms: None Reported Past Surgical History: Appendectomy, Bowel Resection, Hernia Repair Additional Past Surgical History / Comment(s): multiple colonoscopies, 2 bowel resections age 17 and 29, x6 i&d's d/t fistulas d/t crohns. Past Anesthesia/Blood Transfusion Reactions: No Reported Reaction Past Psychological History: No Psychological Hx Reported Smoking Status: Current every day smoker Past Alcohol Use History: None Reported Past Drug Use History: None Reported - Past Family History Father Family Medical History: Cancer Additional Family Medical History / Comment(s): bladder cancer, ddd Mother Family Medical History: Hyperlipidemia, Hypertension General Exam Limitations: no limitations General appearance: alert, in no apparent distress Head exam: Present: atraumatic, normocephalic, normal inspection Eye exam: Present: normal appearance, PERRL, EOMI. Absent: scleral icterus, conjunctival injection, periorbital swelling ENT exam: Present: normal exam, mucous membranes moist Neck exam: Present: normal inspection, full ROM. Absent: tenderness, meningismus, lymphadenopathy Respiratory exam: Present: normal lung sounds bilaterally. Absent: respiratory distress, wheezes, rales, rhonchi, stridor Cardiovascular Exam: Present: regular rate, normal rhythm, normal heart sounds. Absent: systolic murmur, diastolic murmur, rubs, gallop, clicks Extremities exam: Present: full ROM (Full range of motion of right lower extremity however patient does have pain with full flexion of the right knee.), tenderness (Mild tenderness of the lateral aspect of the right knee.), normal capillary refill (Capillary refill less than 2 seconds, DP pulse 2+ right lower extremity.), other (Sensation intact right lower extremity.). Absent: joint swelling (No edema or erythema noted in the right leg.), calf tenderness Course Vital Signs 11/04/20 19:17 Temperature 97.8 F Pulse Rate 68 Respiratory 16 Rate Blood Pressure 108/65 O2 Sat by Pulse 96 Oximetry Medical Decision Making - Medical Decision Making 59-year-old male presents for right knee pain. Patient states the pain radiates down to the right anterior lower leg and up his thigh. Patient was sent in for an ultrasound which showed no acute DVT. I did evaluate patient at this time as this had been done by advanced triage and offered him an x-ray which he did want to have. The x-ray did show bone spurring and patient does have a history of arthritis in that knee. He was given Toradol and a steroid shot. However he then eloped from the emergency room without notifying anyone. we had previously discussed follow-up with his orthopedic doctor so I will assume he is going to do that. Disposition Clinical Impression: Knee pain, right Narrative: eloped Disposition: Left Against Medical Advice Condition: Fair Is patient prescribed a controlled substance at d/c from ED?: No Referrals: Louie Lipscomb DO [Primary Care Provider] - 1-2 days Time of Disposition: 22:39
--- NOTE | 2020-11-04 22:01 | XR ---
EXAMINATION TYPE: XR knee complete RT DATE OF EXAM: 11/04/2020 COMPARISON: NONE HISTORY: Knee pain TECHNIQUE: 3 views FINDINGS: I see no fracture nor dislocation. There is mild spurring of the medial femoral and tibial condyles. There is no sign of joint effusion. There is no significant joint space narrowing. IMPRESSION: Mild degenerative spurring. No fracture.
== END 2020-11-04 22:45 | disposition left against medical advice (07) ==
LOC: EC 19:10
DX: M25.561 Pain in right knee (principal); F17.200 Nicotine dependence, unspecified, uncomplicated; M19.90 Unspecified osteoarthritis, unspecified site; Z79.891 Long term (current) use of opiate analgesic
CPT/HCPCS: 73562; 93971; 99284; 96372 ×2; J2930; J1885

== ENCOUNTER 2020-11-13 17:42 | Emergency (ER) | payer MEDICARE ==
[2020-11-13 18:24] VITALS: BP 111/73; PULSE 90; RESP 18; TEMP 98.5
[2020-11-13] MEDS ORDERED: SODIUM CHLORIDE 0.9% 1,000 ML IV STA (18:31)
[2020-11-13] MEDS ORDERED: ONDANSETRON 4 MG/2 ML VIAL IVP STA (18:31)
[2020-11-13] MEDS ORDERED: KETOROLAC 15 MG/ML 1 ML VIAL IVP STA (18:31)
--- NOTE | 2020-11-13 18:37 | ED ---
Abdominal Pain HPI - General Chief Complaint: Abdominal Pain Stated Complaint: Swollen Prostate/Kidney Infection Time Seen by Provider: 11/13/20 18:19 Source: patient Mode of arrival: ambulatory Limitations: no limitations - History of Present Illness Initial Comments: Patient is a 59-year-old male with history Crohn's disease, presenting to the emergency Department with complaints of a possible kidney infection. He states that about 5 days ago he started having some left flank pain and dysuria, urgency. He states he is only been able to urinate a small amount. He did go to his PCPs office on Tuesday, they did a urine test which showed evidence for a UTI, he was started on Cipro. They were concerned that his prostate was enlarged causing his difficulty with urination. I was able to pull up the urine culture report today, it was positive for E. coli, sensitive to Cipro. The Cipro was started on Tuesday, 2 days ago, he states he does not feel improvement in his symptoms and his PCP told him to come into the ER for evaluation. He does have history of kidney stones. He states he still having lots of left flank pain as well as some pressure over his bladder. He does have history of Crohn's, he's been having harder bowel movements over the last few days as well. He denies any fevers however his significant other states that he felt warm yesterday while at dinner. He does admit to some mild nausea but no vomiting. He denies any chest pain or shortness of breath, no cough. He has no further complaints at this time. - Related Data Home Medications Medication Instructions Recorded Confirmed Omeprazole 40 mg PO HS 11/04/20 11/13/20 Terazosin [Hytrin] 5 mg PO HS 11/04/20 11/13/20 Ciprofloxacin HCl [Cipro] 500 mg PO BID 11/13/20 11/13/20 HYDROcodone/APAP 10-325MG [[place] 1 tab PO TID PRN 11/13/20 11/13/20 10-325] Tamsulosin HCl [Flomax] 0.4 mg PO HS 11/13/20 11/13/20 Allergies Allergy/AdvReac Type Severity Reaction Status Date / Time No Known Allergies Allergy Verified 11/13/20 19:27 Review of Systems ROS Statement: Those systems with pertinent positive or pertinent negative responses have been documented in the HPI. ROS Other: All systems not noted in ROS Statement are negative. Past Medical History Past Medical History: Osteoarthritis (OA), Sleep Apnea/CPAP/BIPAP Additional Past Medical History / Comment(s): crohns, stewart rectal abcesses, perianal abscesses, lt hand /wrist fx-casted, kidney stone, NO CPAP History of Any Multi-Drug Resistant Organisms: None Reported Past Surgical History: Appendectomy, Bowel Resection, Hernia Repair Additional Past Surgical History / Comment(s): multiple colonoscopies, 2 bowel resections age 17 and 29, x6 i&d's d/t fistulas d/t crohns. Past Anesthesia/Blood Transfusion Reactions: No Reported Reaction Past Psychological History: No Psychological Hx Reported Smoking Status: Current every day smoker Past Alcohol Use History: Rare Past Drug Use History: None Reported - Past Family History Father Family Medical History: Cancer Additional Family Medical History / Comment(s): bladder cancer, ddd Mother Family Medical History: Hyperlipidemia, Hypertension General Exam - General Exam Comments Initial Comments: GENERAL: Patient is well-developed and well-nourished. Patient is nontoxic and in no acute distress. HEAD: Atraumatic, normocephalic. EYES: Pupils equal round and reactive to light, extraocular movements intact, sclera anicteric, conjunctiva are normal. Eyelids were unremarkable. ENT: Moist mucous membranes. NECK: Normal range of motion, supple without lymphadenopathy or JVD. LUNGS: Unlabored respirations. Breath sounds clear to auscultation bilaterally and equal. No wheezes rales or rhonchi. HEART: Regular rate and rhythm without murmurs, rubs or gallops. ABDOMEN: Soft, nontender, normoactive bowel sounds. No guarding, no rebound. No masses appreciated. Normal umbilical hernia present, no pain. He has some mild left flank pain on percussion. : Deferred MUSCULOSKELETAL: Normal extremities with adequate strength and normal range of motion, no pitting or edema. No clubbing or cyanosis. NEUROLOGICAL: Patient is alert and oriented x 3. Motor and sensory are also intact. Cranial nerves II through XII grossly intact. Symmetrical smile. Normal speech, normal gait. PSYCH: Normal mood, normal affect. SKIN: Warm, Dry, normal turgor, no rashes or lesions noted. Limitations: no limitations Course Vital Signs 11/13/20 18:12 Temperature 98.5 F Pulse Rate 90 Respiratory 18 Rate Blood Pressure 111/73 O2 Sat by Pulse 99 Oximetry Medical Decision Making - Medical Decision Making Patient is a 59-year-old male, with history of Crohn's, here with left flank pain, currently be treated for a UTI. He has been on Cipro for the past 2 days, urine culture is positive for E. coli, sensitive to Cipro. Does have history kidney stones. Vitals are stable upon arrival. Labs show a normal white count, lactic acid slightly elevated at 2.3, to give him a liter fluids while here in the ER, rest of labs are within normal limits. Urine shows an improving infection, only a trace amount of blood, 2 wbc's and rare bacteria. CT of the abdomen and pelvis shows possible cystitis, no other acute abnormalities. No signs of a left renal stone. Patient given Zofran and Toradol, he has been res ting completely. I discussed these findings with the patient, I recommended continuing with the Cipro and finished an entire medication, he needs to increase his fluid intake. I will give him referral to urology, they requested Dr. López. He will follow up with his PCP. Return parameters were discussed with them and they verbalized understanding. Case discussed with Dr. David. - Lab Data Result diagrams: 11/13/20 18:40 11/13/20 18:40 Lab Results 11/13/20 11/13/20 11/13/20 Range/Units 18:40 18:40 18:40 WBC 8.6 (3.8-10.6) k/uL RBC 5.09 (4.30-5.90) m/uL Hgb 16.1 (13.0-17.5) gm/dL Hct 48.3 (39.0-53.0) % MCV 94.8 (80.0-100.0) fL MCH 31.5 (25.0-35.0) pg MCHC 33.3 (31.0-37.0) g/dL RDW 13.9 (11.5-15.5) % Plt Count 297 (150-450) k/uL MPV 7.6 Neutrophils % 54 % Lymphocytes % 31 % Monocytes % 10 % Eosinophils % 1 % Basophils % 1 % Neutrophils # 4.6 (1.3-7.7) k/uL Lymphocytes # 2.7 (1.0-4.8) k/uL Monocytes # 0.9 (0-1.0) k/uL Eosinophils # 0.1 (0-0.7) k/uL Basophils # 0.0 (0-0.2) k/uL Sodium 139 (137-145) mmol/L Potassium 3.9 (3.5-5.1) mmol/L Chloride 105 (98-107) mmol/L Carbon Dioxide 22 (22-30) mmol/L Anion Gap 12 mmol/L BUN 25 H (9-20) mg/dL Creatinine 1.20 (0.66-1.25) mg/dL Est GFR (CKD-EPI)AfAm 77 (>60 ml/min/1.73 sqM) Est GFR (CKD-EPI)NonAf 67 (>60 ml/min/1.73 sqM) Glucose 129 H (74-99) mg/dL Plasma Lactic Acid Marcello (0.7-2.0) mmol/L Calcium 9.4 (8.4-10.2) mg/dL Total Bilirubin 0.5 (0.2-1.3) mg/dL AST 32 (17-59) U/L ALT 24 (4-49) U/L Alkaline Phosphatase 64 (38-126) U/L Total Protein 7.4 (6.3-8.2) g/dL Albumin 4.5 (3.5-5.0) g/dL Amylase 57 (30-110) U/L Lipase 85 (23-300) U/L Urine Color Yellow Urine Appearance Clear (Clear) Urine pH 5.5 (5.0-8.0) Ur Specific [place] 1.037 H (1.001-1.035) Urine Protein Trace H (Negative) Urine Glucose (UA) Negative (Negative) Urine Ketones Negative (Negative) Urine Blood Trace H (Negative) Urine Nitrite Negative (Negative) Urine Bilirubin Negative (Negative) Urine Urobilinogen 2.0 (<2.0) mg/dL Ur Leukocyte Esterase Negative (Negative) Urine RBC 4 (0-5) /hpf Urine WBC 2 (0-5) /hpf Ur Squamous Epith Cells <1 (0-4) /hpf Urine Bacteria Rare H (None) /hpf Urine Mucus Rare H (None) /hpf 11/13/20 Range/Units 18:40 WBC (3.8-10.6) k/uL RBC (4.30-5.90) m/uL Hgb (13.0-17.5) gm/dL Hct (39.0-53.0) % MCV (80.0-100.0) fL MCH (25.0-35.0) pg MCHC (31.0-37.0) g/dL RDW (11.5-15.5) % Plt Count (150-450) k/uL MPV Neutrophils % % Lymphocytes % % Monocytes % % Eosinophils % % Basophils % % Neutrophils # (1.3-7.7) k/uL Lymphocytes # (1.0-4.8) k/uL Monocytes # (0-1.0) k/uL Eosinophils # (0-0.7) k/uL Basophils # (0-0.2) k/uL Sodium (137-145) mmol/L Potassium (3.5-5.1) mmol/L Chloride (98-107) mmol/L Carbon Dioxide (22-30) mmol/L Anion Gap mmol/L BUN (9-20) mg/dL Creatinine (0.66-1.25) mg/dL Est GFR (CKD-EPI)AfAm (>60 ml/min/1.73 sqM) Est GFR (CKD-EPI)NonAf (>60 ml/min/1.73 sqM) Glucose (74-99) mg/dL Plasma Lactic Acid Marcello 2.3 H* (0.7-2.0) mmol/L Calcium (8.4-10.2) mg/dL Total Bilirubin (0.2-1.3) mg/dL AST (17-59) U/L ALT (4-49) U/L Alkaline Phosphatase (38-126) U/L Total Protein (6.3-8.2) g/dL Albumin (3.5-5.0) g/dL Amylase (30-110) U/L Lipase (23-300) U/L Urine Color Urine Appearance (Clear) Urine pH (5.0-8.0) Ur Specific [place] (1.001-1.035) Urine Protein (Negative) Urine Glucose (UA) (Negative) Urine Ketones (Negative) Urine Blood (Negative) Urine Nitrite (Negative) Urine Bilirubin (Negative) Urine Urobilinogen (<2.0) mg/dL Ur Leukocyte Esterase (Negative) Urine RBC (0-5) /hpf Urine WBC (0-5) /hpf Ur Squamous Epith Cells (0-4) /hpf Urine Bacteria (None) /hpf Urine Mucus (None) /hpf Disposition Clinical Impression: UTI (urinary tract infection), Left flank pain Disposition: HOME SELF-CARE Condition: Stable Instructions (If sedation given, give patient instructions): Urinary Tract Infection in Men (ED) Additional Instructions: Please return to the Emergency Department if symptoms worsen or any other concerns. Continue and finish your current antibiotic. Please follow up with urology and your primary care physician. Is patient prescribed a controlled substance at d/c from ED?: No Referrals: Louie Lipscomb DO [Primary Care Provider] - 1-2 days Santiago López MD [STAFF PHYSICIAN] - 1-2 days Time of Disposition: 20:14
[2020-11-13 19:14] LABS: Basophils % (A) 1 %; Eosinophils # (A) 0.1 k/uL (0-0.7); Eosinophils % (A) 1 %; HCT 48.3 % (39.0-53.0); HGB 16.1 gm/dL (13.0-17.5); Lymphocytes # (A) 2.7 k/uL (1.0-4.8); Lymphocytes % (A) 31 %; MCH 31.5 pg (25.0-35.0); MCHC 33.3 g/dL (31.0-37.0); MCV 94.8 fL (80.0-100.0); Mean Platelet Volume 7.6; Monocytes # (A) 0.9 k/uL (0-1.0); Monocytes % (A) 10 %; Neutrophils # (A) 4.6 k/uL (1.3-7.7); Neutrophils % (A) 54 %; Platelet Count 297 k/uL (150-450); RBC 5.09 m/uL (4.30-5.90); RDW 13.9 % (11.5-15.5); WBC 8.6 k/uL (3.8-10.6)
[2020-11-13 19:24] LABS: Albumin 4.5 g/dL (3.5-5.0); Calcium 9.4 mg/dL (8.4-10.2); Potassium 3.9 mmol/L (3.5-5.1); Total Bilirubin 0.5 mg/dL (0.2-1.3); Total Protein 7.4 g/dL (6.3-8.2)
[2020-11-13 19:26] LABS: Appearance,Urine Clear (Clear); Bacteria,Urine Rare /hpf; Bilirubin,Urine Negative (Negative); Blood,Urine Trace (Negative); Color,Urine Yellow; Glucose,Urine (UA) Negative (Negative); Ketones,Urine Negative (Negative); Leukocyte Esterase,Urine Negative (Negative); Mucus,Urine Rare /hpf; Nitrite,Urine Negative (Negative); PH, Urine 5.5 (5.0-8.0); Protein,Urine Trace (Negative); RBC,Urine 4 /hpf (0-5); Specific Gravity,Urine 1.037 (1.001-1.035); Squamous Epithelial Cell,Urine <1 /hpf (0-4); WBC,Urine 2 /hpf (0-5)
--- NOTE | 2020-11-13 19:42 | CT ---
EXAMINATION TYPE: CT abdomen pelvis wo con DATE OF EXAM: 11/13/2020 COMPARISON: None available. HISTORY: LT flank pain, swollen prostate. CT DLP: 648.3 mGycm Automated exposure control for dose reduction was used. TECHNIQUE: Helical acquisition of images was performed from the lung bases through the pelvis. FINDINGS: LUNG BASES: No significant abnormality is appreciated. LIVER/GB: No acute abnormality is appreciated. 2 low attenuating left hepatic foci without suspicious features measuring up to 0.8 cm and compatible with cysts. PANCREAS: No significant abnormality is seen. SPLEEN: No significant abnormality is seen. ADRENALS: No significant abnormality is seen. KIDNEYS: 1.1 cm simple appearing left renal lower pole cyst. Nonobstructing punctate right renal calc ulus. No bilateral hydronephrosis or left nephrolithiasis. FREE AIR: No free air is visualized RETROPERITONEAL ADENOPATHY: None visualized REPRODUCTIVE ORGANS: No significant abnormality is seen URINARY BLADDER: Indistinctness of the urinary bladder wall. PELVIC ADENOPATHY: None visualized. OSSEOUS STRUCTURES: No acute abnormality is seen. Moderate lumbar spondylosis. BOWEL: No bowel obstruction, free air or fluid. Small fat-containing periumbilical hernia. OTHER: None IMPRESSION: URINARY BLADDER WALL INDISTINCTNESS, CORRELATE FOR POSSIBLE CYSTITIS. OTHERWISE NO ACUTE ABNORMALITY. NONOBSTRUCTING RIGHT RENAL CALCULUS. SMALL PERIUMBILICAL HERNIA. Additional incidental and chronic findings as above.
== END 2020-11-13 20:36 | disposition home or self-care (01) ==
LOC: EC 17:42
DX: N39.0 Urinary tract infection, site not specified (principal); F17.200 Nicotine dependence, unspecified, uncomplicated
CPT/HCPCS: 36415; 80053; 82150; 83605; 83690; 85025; 81001; 74176; 99284; 96374; 96361; 96375; J2405; J1885

== ENCOUNTER 2020-11-16 19:22 | Observation (INO) | payer MEDICARE ==
[2020-11-16] MEDS ORDERED: KETOROLAC 15 MG/ML 1 ML VIAL IVP STA (19:56)
--- NOTE | 2020-11-16 20:03 | ED ---
General Adult HPI - General Chief complaint: Allergic Reaction Stated complaint: Allergic reaction Time Seen by Provider: 11/16/20 19:27 Source: patient, EMS, RN notes reviewed, old records reviewed Mode of arrival: EMS Limitations: no limitations - History of Present Illness Initial comments: Patient is a 59-year-old male with past medical history remarkable for arthritis, Crohn's disease, recent pyelonephritis on antibiotics who presents emergency Department complaining of an anaphylactic reaction. Patient was stung by a bee at approximate 6 PM. He said he was stung multiple times in the left back, left leg. He states he became itchy over his skin, had nausea and vomiting, and had shortness of breath as well as swelling over his lips and to ngue. Patient also had swelling around his left eye. Initially he attempted to treat it with by mouth Benadryl at home, however they took him to an urgent care were 0.3 mg of IM epinephrine was given as well as IV steroids, Benadryl, famotidine. Patient also received an albuterol breathing treatment. He states his symptoms are improving. He is no longer short of breath. He states that his oral swelling is improving but is still present somewhat in his upper lip. He denies any itchiness of the skin. He is complaining of chronic left knee pain. He denies any difficulty in breathing. His no other acute complaints at this time. She was brought via EMS for further observation in the emergency department. He has no known allergies to bees in the past. - Related Data Home Medications Medication Instructions Recorded Confirmed Omeprazole 40 mg PO HS 11/04/20 11/16/20 Terazosin [Hytrin] 5 mg PO HS 11/04/20 11/16/20 Ciprofloxacin HCl [Cipro] 500 mg PO BID 11/13/20 11/16/20 HYDROcodone/APAP 10-325MG [[place] 1 tab PO TID 11/13/20 11/16/20 10-325] Tamsulosin HCl [Flomax] 0.4 mg PO HS 11/13/20 11/16/20 Allergies Allergy/AdvReac Type Severity Reaction Status Date / Time bee venom protein (honey bee) Allergy Anaphylaxis Verified 11/16/20 20:58 Review of Systems ROS Statement: Those systems with pertinent positive or pertinent negative responses have been documented in the HPI. Review of Systems: CONST: Denies fever EYES: Denies blurry vision ENT: Endorses upper lip swelling. C/V: Denies Chest pain RESP: Denies shortness of breath GI: Denies abdominal pain : Denies dysuria SKIN: Denies rash. MSK: Denies joint pain. NEURO: Denies headache ROS Other: All systems not noted in ROS Statement are negative. Past Medical History Past Medical History: Osteoarthritis (OA), Sleep Apnea/CPAP/BIPAP Additional Past Medical History / Comment(s): crohns, stewart rectal abcesses, perianal abscesses, lt hand /wrist fx-casted, kidney stone, NO CPAP History of Any Multi-Drug Resistant Organisms: None Reported Past Surgical History: Appendectomy, Bowel Resection, Hernia Repair Additional Past Surgical History / Comment(s): multiple colonoscopies, 2 bowel resections age 17 and 29, x6 i&d's d/t fistulas d/t crohns. Past Anesthesia/Blood Transfusion Reactions: No Reported Reaction Past Psychological History: No Psychological Hx Reported Smoking Status: Current every day smoker Past Alcohol Use History: None Reported Past Drug Use History: None Reported - Past Family History Father Family Medical History: Cancer Additional Family Medical History / Comment(s): bladder cancer, ddd Mother Family Medical History: Hyperlipidemia, Hypertension General Exam - General Exam Comments Initial Comments: General: Appears in no acute distress. HEAD: Normal with no signs of head trauma. EYES: PERRLA, EOMI, conjunctiva normal, no discharge. Pupils are 3 mm bilateral and equal. ENT: Hearing grossly intact, normal oropharynx. Patient has mild swelling of the upper lip. Tongue does appear mildly edematous, however per patient is improving.. No stridor auscultated. RESPIRATORY: Clear breath sounds bilaterally. No wheezes, rales, or rhonchi. No increased work of breathing. C/V: Regular rate and rhythm. S1 and S2 auscultated, no edema, peripheral pulses 2+ and intact throughout ABD: Abd is soft, nontender, nondistended EXT: Normal range of motion, no obvious deformity SKIN: Patient does have mild erythematous bee stings located over the left lateral back as well as the left side. No obvious urticaria or rash present. NEURO: Alert and oriented 4. Limitations: no limitations Course Vital Signs 11/16/20 11/16/20 11/16/20 19:25 20:00 21:00 Temperature 98.3 F 97.9 F Pulse Rate 77 60 54 L Respiratory 20 18 18 Rate Blood Pressure 123/81 123/80 126/87 O2 Sat by Pulse 96 95 Oximetry Medical Decision Making - Medical Decision Making Based on the patient's presentation and physical exam, does appear that he had an anaphylactic reaction at the outside urgent care. Received adequate treatment with steroids, famotidine, Benadryl, subcu epinephrine. Symptoms are improving. He currently has no acute complaints. He has very mild residual swelling of the upper lip. There is no wheezing or stridor on exam. He is improved from earlier. I discussed with him that we will observe him here in the emergency department for a period of time to ensure there are no repeat onset of symptoms. He was in agreement with this plan. His vitals remain stable and he is completing a fluid bolus at this time. On reevaluation, his patient still has persistent upper lip swelling as well as some swelling of the tongue. Clinically, he is unchanged otherwise. Vital signs are stable. As it is late at night patient will be unable to obtain an EpiPen outpatient, I did discuss with him and his the risks of being d ischarged home. I advised that we admit him to the hospital, due to the severity of his anaphylactic reaction earlier as well as persistent swelling for observation until tomorrow. They were in agreement this plan. Basic laboratory studies were ordered by myself and showed a reactive leukocytosis. Otherwise unremarkable. I spoke with the admitting physician, Dr. Chavarria, who accepted the admission. She requested that I place the patient on twice a day Zyrtec 10 mg as well as 60 mg Solu-Medrol every 6 hours. These orders were placed. Patient was therefore admitted to observation in stable condition. The patient is currently being treated outpatient for pyelonephritis and is on ciprofloxacin, which is reordered for the patient then inpatient basis. - Lab Data Result diagrams: 11/16/20 21:26 11/16/20 21:26 Disposition Clinical Impression: Anaphylactic reaction, Bee sting Disposition: ADMITTED IP TO THIS HOSP Condition: Stable
[2020-11-16] MEDS ORDERED: NALOXONE 0.4 MG/ML 1 ML VIAL IV PRN (21:08)
[2020-11-16] MEDS ORDERED: ACETAMINOPHEN TAB 325 MG TAB PO PRN (21:08)
[2020-11-16] MEDS ORDERED: ONDANSETRON 4 MG/2 ML VIAL IVP PRN (21:08)
[2020-11-16] MEDS ORDERED: KETOROLAC 15 MG/ML 1 ML VIAL IVP PRN (21:08)
[2020-11-16] MEDS ORDERED: TAMSULOSIN 0.4 MG CAP.ER.24H PO SCH (21:15)
[2020-11-16] MEDS ORDERED: PANTOPRAZOLE 40 MG TABLET PO SCH (21:15)
[2020-11-16] MEDS: CIPROFLOXACIN HCL 500 MG TAB PO SCH (21:27)
[2020-11-16 21:52] LABS: Basophils % (A) 0 %; Eosinophils % (A) 0 %; HCT 44.6 % (39.0-53.0); HGB 14.9 gm/dL (13.0-17.5); Lymphocytes # (A) 0.7 k/uL (1.0-4.8); Lymphocytes % (A) 5 %; MCH 31.7 pg (25.0-35.0); MCHC 33.4 g/dL (31.0-37.0); Mean Platelet Volume 7.4; Monocytes # (A) 0.5 k/uL (0-1.0); Monocytes % (A) 3 %; Neutrophils # (A) 14.1 k/uL (1.3-7.7); Neutrophils % (A) 91 %; Platelet Count 250 k/uL (150-450); RDW 13.6 % (11.5-15.5); WBC 15.5 k/uL (3.8-10.6)
[2020-11-16 22:09] LABS: African American GFR (CKD) >90 (>60 ml/min/1.73 sqM); Anion Gap 6 mmol/L; Blood Urea Nitrogen 18 mg/dL (9-20); Calcium 8.7 mg/dL (8.4-10.2); Carbon Dioxide 23 mmol/L (22-30); Chloride 109 mmol/L (98-107); Glucose 107 mg/dL (74-99); Non-African American GFR(CKD) >90 (>60 ml/min/1.73 sqM); Potassium 4.2 mmol/L (3.5-5.1); Sodium 138 mmol/L (137-145)
[2020-11-16] MEDS: LORATADINE 10 MG TAB PO SCH (22:19)
[2020-11-16] MEDS ORDERED: LIDOCAINE 4% CREAM 5 GM TUBE TOPICAL PRN (22:33)
[2020-11-16] MEDS: methylPREDNISolone SOD SUCCI 125 MG/2 ML VIAL IV SCH (23:31)
[2020-11-16] MEDS: HYDROcodone/APAP 10-325MG 1 EACH TAB PO SCH (23:32)
[2020-11-17] MEDS: methylPREDNISolone SOD SUCCI 125 MG/2 ML VIAL IV SCH (05:52)
[2020-11-17] MEDS: CIPROFLOXACIN HCL 500 MG TAB PO SCH (08:30)
[2020-11-17] MEDS: LORATADINE 10 MG TAB PO SCH (08:30)
[2020-11-17] MEDS: HYDROcodone/APAP 10-325MG 1 EACH TAB PO SCH (08:31)
[2020-11-17 12:40] VITALS: BP 145/83; PULSE 79; RESP 16; TEMP 98
--- NOTE | 2020-11-17 13:42 | P.HPIM ---
History of Present Illness H&P Date: 11/17/20 This will serve both H&P and discharge summary This is a pleasant 59-year-old gentleman, patient of Dr. Lipscomb, has known history of recently treated pallor and Fridays, on ciprofloxacin, for the past 5 days. He was doing well until he was stung by a bee, with yellow been significant, proximally 6 PM. Within 15 minutes, she complained of itching, facial swelling, tongue swelling, and some thickening, and lip swelling. She has been stung in the hands, legs and the back. He was stung by bees before however Patient has no prior episodes on previous bee stings before . Patient was subsequently treated in urgent care, where he disabled 0.3 mg of epinephrine, as well as intramuscular steroids, and Benadryl, and famotidine. He also received albuterol treatment, and was subsequently sent to the emergency room. By the time he got to the ER, shortness of breath much better, however he still has some thickening in the throat, no significant tongue swelling, and the itching and the rashes are better. He was kept overnight for observation, he was given IV steroids to be provided while he is in the hospital, 11/17 2020, patient received IV steroids, and IV and oral Claritin, rashes improve itching symptoms, shortness of breath has resolved, no tongue swelling, the dysphagia and odynophagia is improved. No lid swelling at this time. IV steroids were provided 60 mg every 6 hours, along with Claritin, patient feels well enough to be discharged home today, with EpiPen prescription, as well as oral taper of prednisone. Counseled regarding anaphylaxis, and emergency use of the EpiPen as well as notification to his physician. Review of Systems Constitutional: Reports as per HPI, Denies anorexia, Denies chills, Denies chronic headaches, Denies chronic pain, Denies daytime sleepiness, Denies fatigue, Denies fever, Denies lethargy, Denies malaise, Denies night sweats, Denies poor appetite, Denies sweats, Denies weakness, Denies weight gain, Denies weight loss Ears, nose, mouth and throat: Reports as per HPI, Reports odynophagia, Reports swelling in mouth, Reports swelling in throat Cardiovascular: Reports as per HPI, Reports dyspnea on exertion, Reports shortness of breath Respiratory: Reports as per HPI Gastrointestinal: Reports as per HPI, Denies abdominal pain, Denies belching, Denies bloating, Denies BRBPR, Denies change in bowel habits, Denies coffee ground emesis, Denies constipation, Denies diarrhea, Denies dyspepsia, Denies early satiety, Denies excessive gas, Denies heartburn, Denies hematemesis, Denies hematochezia, Denies indigestion, Denies jaundice, Denies lactose intolerance, Denies loss of appetite, Denies melena, Denies nausea, Denies vomiting Genitourinary: Reports as per HPI Musculoskeletal: Reports as per HPI Integumentary: Reports as per HPI, Denies acne, Denies boils, Denies brittle nails, Denies change in hair/nails, Denies color changes, Denies darkening of skin, Denies depigmentation, Denies dryness, Denies foot/leg ulcers, Denies growths, Denies hirsutism, Denies lesions, Denies onychomycosis, Denies pruritus, Denies rash, Denies sores, Denies striae, Denies unusual bruising, Denies wounds Neurological: Reports as per HPI, Denies aphasia, Denies ataxia, Denies balance difficulties, Denies burning pain, Denies change in mentation, Denies change in smell/taste, Denies change in speech, Denies confusion, Denies convulsions, Denies double vision, Denies gait dysfunction, Denies head injury, Denies headaches, Denies hearing difficulties, Denies lack of coordination, Denies loss of vision, Denies memory loss, Denies migraines, Denies motor disturbance, Denies numbness, Denies paralysis, Denies paresthesias, Denies seizures, Denies sensory deficit, Denies spasticity, Denies syncope, Denies tic, Denies tingling, Denies transient paralysis, Denies tremors, Denies vertigo, Denies weakness, Denies visual changes Psychiatric: Reports as per HPI, Denies anhedonia, Denies anxiety, Denies anxiety attacks, Denies change in appetite, Denies change in libido, Denies change in sleep habits, Denies confusion, Denies depression, Denies difficulty concentrating, Denies disorientation, Denies hallucinations, Denies hopelessness, Denies hypersomnia, Denies insomnia, Denies irritability, Denies memory loss, Denies mood swings, Denies paranoia, Denies sadness/tearfulness, Denies sleep disturbances, Denies suicidal ideation Endocrine: Reports as per HPI Hematologic/Lymphatic: Reports as per HPI Allergic/Immunologic: Reports as per HPI Past Medical History Past Medical History: Osteoarthritis (OA), Sleep Apnea/CPAP/BIPAP Additional Past Medical History / Comment(s): crohns, stewart rectal abcesses, perianal abscesses, lt hand /wrist fx-casted, kidney stone, NO CPAP History of Any Multi-Drug Resistant Organisms: None Reported Past Surgical History: Appendectomy, Bowel Resection, Hernia Repair Additional Past Surgical History / Comment(s): multiple colonoscopies, 2 bowel resections age 17 and 29, x6 i&d's d/t fistulas d/t crohns. Past Anesthesia/Blood Transfusion Reactions: No Reported Reaction Past Psychological History: No Psychological Hx Reported Smoking Status: Current every day smoker Past Alcohol Use History: None Reported Past Drug Use History: None Reported - Past Family History Father Family Medical History: Cancer Additional Family Medical History / Comment(s): bladder cancer, ddd Mother Family Medical History: Hyperlipidemia, Hypertension Medications and Allergies Home Medications Medication Instructions Recorded Confirmed Type Omeprazole 40 mg PO HS 11/04/20 11/16/20 History Terazosin [Hytrin] 5 mg PO HS 11/04/20 11/16/20 History Ciprofloxacin HCl [Cipro] 500 mg PO BID 11/13/20 11/16/20 History HYDROcodone/APAP 10-325MG [[place] 1 tab PO TID 11/13/20 11/16/20 History 10-325] Tamsulosin HCl [Flomax] 0.4 mg PO HS 11/13/20 11/16/20 History EPINEPHrine (Auto Inject) [Epipen] 0.3 mg IM ONCE PRN #1 pen 11/17/20 Rx Loratadine [Claritin] 10 mg PO BID #14 tab 11/17/20 Rx predniSONE [Deltasone] 40 mg PO DAILY #10 tab 11/17/20 Rx Allergies Allergy/AdvReac Type Severity Reaction Status Date / Time bee venom protein (honey bee) Allergy Anaphylaxis Verified 11/16/20 20:58 Physical Exam Vitals: Vital Signs Temp Pulse Pulse Resp BP BP BP 11/17/20 11:22 98.0 F 79 16 145/83 11/17/20 04:44 98.3 F 63 18 129/80 11/16/20 22:00 60 18 11/16/20 21:50 97.6 F 60 18 139/88 11/16/20 21:00 54 L 18 126/87 11/16/20 20:00 97.9 F 60 18 123/80 11/16/20 19:25 98.3 F 77 20 123/81 Pulse Ox 11/17/20 11:22 96 11/17/20 04:44 99 11/16/20 22:00 11/16/20 21:50 93 L 11/16/20 21:00 11/16/20 20:00 95 11/16/20 19:25 96 Intake and Output 11/16/20 11/17/20 11/17/20 22:59 06:59 14:59 Intake Total 600 Balance 600 Intake: Oral 600 Other: Voiding Method Toilet # Voids 1 Weight 83.007 kg - Constitutional General appearance: cooperative, no acute distress - EENT Eyes: anicteric sclerae, PERRLA, dentition normal, normal appearance ENT: NA/AT, normal oropharynx, no tonsillar swelling - Neck Neck: normal ROM Thyroid: bilateral: normal size, negative: enlarged - Cardiovascular Rhythm: regular Abnormal Heart Sounds: no systolic murmur, no diastolic murmur, no rub, no S3 Gallop, no S4 Gallop, no click, no other - Gastrointestinal General gastrointestinal: hyperactive bowel sounds, normal bowel sounds, soft - Integumentary Integumentary: decreased turgor, normal - Neurologic Neurologic: CNII-XII intact - Musculoskeletal Musculoskeletal: gait normal, strength equal bilaterally - Psychiatric Psychiatric: A&O x's 3, appropriate affect Results CBC & Chem 7: 11/16/20 21:26 11/16/20 21:26 Labs: Abnormal Lab Results - Last 24 Hours (Table) 11/16/20 11/16/20 Range/Units 21:26 21:26 WBC 15.5 H (3.8-10.6) k/uL Neutrophils # 14.1 H (1.3-7.7) k/uL Lymphocytes # 0.7 L (1.0-4.8) k/uL Chloride 109 H (98-107) mmol/L Glucose 107 H (74-99) mg/dL Laboratory Results WBC 15.5 k/uL (3.8-10.6) H 11/16/20 21: RBC 4.70 m/uL (4.30-5.90) 11/16/20 21: Hgb 14.9 gm/dL (13.0-17.5) 11/16/20 21: Hct 44.6 % (39.0-53.0) 11/16/20 21: MCV 95.0 fL (80.0-100.0) 11/16/20 21: MCH 31.7 pg (25.0-35.0) 11/16/20 21: MCHC 33.4 g/dL (31.0-37.0) 11/16/20: RDW 13.6 % (11.5-15.5) 11/16/20 21: Plt Count 250 k/uL (150-450) 11/16/20 21: MPV 7.4 11/16/20 21: Neutrophils % 91 % 11/16/20 21: Lymphocytes % 5 % 11/16/20 21: Monocytes % 3 % 11/16/20 21: Eosinophils % 0 % 11/16/20 21: Basophils % 0 % 11/16/20 21: Neutrophils # 14.1 k/uL (1.3-7.7) H 11/16/20 21: Lymphocytes # 0.7 k/uL (1.0-4.8) L 11/16/20 21: Monocytes # 0.5 k/uL (0-1.0) 11/16/20 21: Eosinophils # 0.0 k/uL (0-0.7) 11/16/20 21: Basophils # 0.0 k/uL (0-0.2) 11/16/20 21: Sodium 138 mmol/L (137-145) 11/16/20 21: Potassium 4.2 mmol/L (3.5-5.1) 11/16/20 21: Chloride 109 mmol/L (98-107) H 11/16/20 21: Carbon Dioxide 23 mmol/L (22-30) 11/16/20 21: Anion Gap 6 mmol/L 08/15/21 21:26 BUN 18 mg/dL (9-20) 11/16/20 21:26 Creatinine 0.90 mg/dL (0.66-1.25) 11/16/20 21:26 Est GFR (CKD-EPI)AfAm >90 (>60 ml/min/1.73 sqM) 11/16/20 21:26 Est GFR (CKD-EPI)NonAf >90 (>60 ml/min/1.73 sqM) 11/16/20 21:26 Glucose 107 mg/dL (74-99) H 11/16/20 21:26 Calcium 8.7 mg/dL (8.4-10.2) 11/16/20 21:26 Thrombosis Risk Factor Assmnt - DVT/VTE Prophylaxis DVT/VTE Prophylaxis: Low risk, early ambulation encouraged - Choose All That Apply Each Factor Represents 1 point: Age 41-60 years, Obesity (BMI >25) Other Risk Factors: No Other congenital or acquired thrombophilia - If yes, enter type in comment: No Thrombosis Risk Factor Assessment Total Risk Factor Score: 2 Thrombosis Risk Factor Assessment Level: Low Risk Assessment and Plan Plan: 1. Bee sting anaphylaxis, with angioedema, required EpiPen prior to ER pre sentation, along with nebulized treatments, and IV steroids. Patient was seen in the emergency room with a syncopal lip swelling, and difficulty breathing, nebulized treatments were provided as well, Solu-Medrol 60 mg every 6 hours, and Claritin. Patient was counseled regarding bee sting anaphylaxis, prescription to be made for EpiPen on discharge, he is to finish oral tapering prednisone, with PCP to see in 2 days. Patient's symptoms have resolved prior to discharge, counseled regarding compliance medication 2. History of sleep apnea, no CPAP device 3. History of recent pyelonephritis, requiring Cipro which is maintained, no cultures available for review 4History of Crohn's, no current exacerbation 5History of kidney stones, without any current renal colic GI prophylaxis, DVT prophylaxis provided, early ambulation, MINO hose and Pepcid Condition on discharge stable and improved
== END 2020-11-17 13:20 | disposition home or self-care (01) ==
LOC: EC 19:22 → 5NMEDONC 21:10
PROVIDERS: ADMIT Family Medicine; ATTEND Family Medicine
DX: T63.441A Toxic effect of venom of bees, accidental (unintentional), initial encounter (principal); T78.2XXA Anaphylactic shock, unspecified, initial encounter; T78.3XXA Angioneurotic edema, initial encounter; G47.30 Sleep apnea, unspecified; R23.1 Pallor; D72.828 Other elevated white blood cell count; F17.200 Nicotine dependence, unspecified, uncomplicated; G89.29 Other chronic pain; M25.562 Pain in left knee; M19.90 Unspecified osteoarthritis, unspecified site; N12 Tubulo-interstitial nephritis, not specified as acute or chronic; K50.90 Crohn's disease, unspecified, without complications; Z91.030 Bee allergy status; Z87.442 Personal history of urinary calculi; Z90.49 Acquired absence of other specified parts of digestive tract; Z82.49 Family history of ischemic heart disease and other diseases of the circulatory system; Z80.52 Family history of malignant neoplasm of bladder; Z83.42 Family history of familial hypercholesterolemia
CPT/HCPCS: 99284; 96376; 96375; 96374; 80048; 85025; G0378 ×2; J2930 ×2; J1885 ×2

== ENCOUNTER 2020-11-18 12:24 | Emergency (ER) | payer MEDICARE ==
[2020-11-18 12:29] VITALS: TEMP 97.5
[2020-11-18] MEDS ORDERED: diphenhydrAMINE 50 MG/ML 1 ML VIAL IVP STA (13:14)
[2020-11-18] MEDS ORDERED: FAMOTIDINE 20 MG/2 ML VIAL IV STA (13:14)
[2020-11-18] MEDS ORDERED: methylPREDNISolone SOD SUCCI 125 MG/2 ML VIAL IV STA (13:14)
--- NOTE | 2020-11-18 14:24 | ED ---
General Adult HPI - General Chief complaint: Skin/Abscess/Foreign Body Stated complaint: revisit- bee sting Time Seen by Provider: 11/18/20 12:51 Source: patient, RN notes reviewed Mode of arrival: ambulatory Limitations: no limitations - History of Present Illness Initial comments: 59-year-old male presents emergency from it with chief complaint of bee sting. Patient states he was just discharged yesterday after anaphylactic reaction. Patient states that he was given EpiPen and states he used to today. He states he has some localized itching no other symptoms is a difficult breathing difficulty swallowing. - Related Data Home Medications Medication Instructions Recorded Confirmed Omeprazole 40 mg PO HS 11/04/20 11/18/20 Terazosin [Hytrin] 5 mg PO HS 11/04/20 11/18/20 Ciprofloxacin HCl [Cipro] 500 mg PO BID 11/13/20 11/18/20 HYDROcodone/APAP 10-325MG [[place] 1 tab PO TID 11/13/20 11/18/20 10-325] Tamsulosin HCl [Flomax] 0.4 mg PO HS 11/13/20 11/18/20 predniSONE [Deltasone] See Taper PO DAILY 11/18/20 11/18/20 Previous Rx's Medication Instructions Recorded EPINEPHrine (Auto Inject) [Epipen] 0.3 mg IM ONCE PRN #1 pen 11/17/20 Loratadine [Claritin] 10 mg PO BID #14 tab 11/17/20 Allergies Allergy/AdvReac Type Severity Reaction Status Date / Time bee venom protein (honey bee) Allergy Anaphylaxis Verified 11/18/20 13:56 Review of Systems ROS Statement: Those systems with pertinent positive or pertinent negative responses have been documented in the HPI. ROS Other: All systems not noted in ROS Statement are negative. 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 Past Anesthesia/Blood Transfusion Reactions: No Reported Reaction Past Psychological History: No Psychological Hx Reported Smoking Status: Current every day smoker Past Alcohol Use History: None Reported Past Drug Use History: None Reported - Past Family History Father Family Medical History: Cancer Additional Family Medical History / Comment(s): bladder cancer, ddd Mother Family Medical History: Hyperlipidemia, Hypertension General Exam Limitations: no limitations General appearance: alert, in no apparent distress Head exam: Present: atraumatic, normocephalic, normal inspection Eye exam: Present: normal appearance, PERRL, EOMI. Absent: scleral icterus, conjunctival injection, periorbital swelling ENT exam: Present: normal exam, normal oropharynx, mucous membranes moist Neck exam: Present: normal inspection, full ROM. Absent: tenderness, meningismus, lymphadenopathy Respiratory exam: Present: normal lung sounds bilaterally. Absent: respiratory distress, wheezes, rales, rhonchi, stridor Cardiovascular Exam: Present: regular rate, normal rhythm, normal heart sounds. Absent: systolic murmur, diastolic murmur, rubs, gallop, clicks GI/Abdominal exam: Present: soft, normal bowel sounds. Absent: distended, tenderness, guarding, rebound, rigid Skin exam: Present: warm, dry, intact, normal color, other (Small area of erythematous rash on the right ankle and left). Absent: rash Course Vital Signs 11/18/20 12:25 Temperature 97.5 F L Pulse Rate 84 Respiratory 20 Rate Blood Pressure 134/90 O2 Sat by Pulse 96 Oximetry Medical Decision Making - Medical Decision Making Patient was ordered Benadryl Solu-Medrol and Pepcid patient states he feels fine prior to this of the nurse starting IV. Patient will be discharged stable condition. Disposition Clinical Impression: Bee sting Disposition: HOME SELF-CARE Condition: Stable Instructions (If sedation given, give patient instructions): Insect Bite or Sting (ED) Additional Instructions: Please return to the Emergency Department if symptoms worsen or any other concerns. Is patient prescribed a controlled substance at d/c from ED?: No Referrals: Louie Lipscomb DO [Primary Care Provider] - 1-2 days Time of Disposition: 14:33
[2020-11-18 15:10] VITALS: BP 165/90; PULSE 73; RESP 18
== END 2020-11-18 15:09 | disposition home or self-care (01) ==
LOC: EC 12:24
DX: T63.441A Toxic effect of venom of bees, accidental (unintentional), initial encounter (principal); M19.90 Unspecified osteoarthritis, unspecified site; F17.200 Nicotine dependence, unspecified, uncomplicated; Z91.030 Bee allergy status; Z79.899 Other long term (current) drug therapy
CPT/HCPCS: 99282

== ENCOUNTER → 2020-12-17 | Outpatient (CLI) | payer MEDICARE ==
--- NOTE | 2020-12-17 13:50 | CT ---
EXAMINATION TYPE: CT abdomen pelvis w con DATE OF EXAM: 12/17/2020 COMPARISON: CT November 13, 2020 and older CTs HISTORY: Fistula between bowel and bladder. History of Crohn's. Complaint of left flank pain. CT DLP: 1230 mGycm, Automated Exposure Control for Dose Reduction was Utilized. CONTRAST: CT scan of the abdomen and pelvis is performed with oral and with IV Contrast, patient injected with 100 mL of Isovue M300. FINDINGS: LUNG BASES: Mild bibasilar dependent atelectasis. LIVER/GB: Liver heterogeneously hypodense consistent with fatty infiltration with a few tiny benign-a ppearing thin-walled cysts anterior left hepatic dome image 11 series 7 redemonstrated. PANCREAS: No significant abnormality is seen. SPLEEN: No significant abnormality is seen. ADRENALS: No significant abnormality is seen. KIDNEYS: There is stable 1.5 cm thin-walled cyst laterally left kidney series 3 image 25. Occasional punctate subcentimeter hypodense lesion too small to further characterized but presumed benign are re demonstrated. Bladder shows mild concentric wall thickening similar to prior studies. There is no int ernal oral contrast. There is poorly visualized fat plane separation from sigmoid rectal colon prior to narrowing near axial image 68 redemonstrated similar to prior. BOWEL: Oral contrast reaches the transverse colon level. No suspicious small or large bowel dilatatio n. Persistent focal narrowing sigmoid rectal colon axial image 71 has been present on prior studies a nd slightly more prominent current study. No significant proximal dilatation to suggest obstruction h owever. The terminal ileum or neoterminal ileum coronal image 38 is felt within normal limits. PROSTATE/SEMINAL VESICLES: Upper limits of normal in size adjacent phlebolith.. LYMPH NODES: No greater than 1cm abdominal or pelvic lymph nodes are appreciated. OSSEOUS STRUCTURES: No significant abnormality is seen. OTHER: Focal moderate to large sized umbilical hernia containing fat and mesenteric vessels redemonst rated. IMPRESSION: Overall similar findings with mild bladder wall thickening and indistinct fat plane from adjacent sigmoid rectal colon, possible fistulous communication. No intraluminal air or oral contrast within bladder. Slightly suboptimal as oral contrast has not extended to sigmoid rectal colon level. There is persistent sigmoid rectal colonic narrowing probable stricture without significant obstruct ion.
== END | disposition home or self-care (01) ==
LOC: RADCTMAIN 11:09
PROVIDERS: ATTEND Urology
DX: K56.699 Other intestinal obstruction unspecified as to partial versus complete obstruction (principal); K63.2 Fistula of intestine
CPT/HCPCS: 74177; Q9967 ×2

== ENCOUNTER → 2021-07-24 | Outpatient (CLI) | payer MEDICARE ==
--- NOTE | 2021-07-25 09:48 | CT ---
EXAMINATION TYPE: CT brain wo/w con DATE OF EXAM: 07/24/2021 COMPARISON: CT brain 07/27/2019 HISTORY: dizziness, visual changes CT DLP: 2035.8 mGycm Automated exposure control for dose reduction was used. CONTRAST: CT scan of the head is performed without and with IV Contrast, patient injected with 100 mL of Isovue 300. FINDINGS: There is no abnormal enhancing mass or midline shift identified. The ventricles and sulci are within normal limits in size. The globes are intact and the visualized sinuses are clear. Periventricular white matter shows patchy low attenuation similar to prior exam. IMPRESSION: Negative contrast enhanced head CT exam. Nonspecific white matter demyelination, brain MRI may be of benefit
== END | disposition home or self-care (01) ==
LOC: RADCTMAIN 18:46
PROVIDERS: ATTEND Family Medicine
DX: H53.8 Other visual disturbances (principal); R51.9 Headache, unspecified
CPT/HCPCS: 70470; Q9967

== ENCOUNTER 2021-08-18 10:20 | Inpatient (IN) | payer MEDICARE ==
[2021-08-18] MEDS ORDERED: HYDROmorphone 0.5 MG/0.5 ML SYRINGE IVP STA (10:45)
[2021-08-18] MEDS ORDERED: SODIUM CHLORIDE 0.9% 500 ML 500 ML IV STA ×2 (10:45→12:03)
--- NOTE | 2021-08-18 10:55 | ED ---
General Adult HPI - General Chief complaint: Abdominal Pain Stated complaint: abd pain Time Seen by Provider: 08/18/21 10:33 Source: patient, EMS Mode of arrival: EMS - History of Present Illness Initial comments: This 60-year-old female with a past medical history of Crohn's disease since age 16 presents emergency Department with abdominal pain, nausea and vomiting that began at 2:00am. Patient states he was woken up out of his sleep with nausea and began to vomit. Patient states since 2 AM he has had progressive abdominal pain. He denies taking any pain medications. Patient states his pain is currently 9/10 and describes it as aching in nature. Patient states he has had multiple abdominal surgeries and currently has an umbilical hernia. Patient states does not really feel like a Crohn's flareup. Patient states over the last few hours he has been experiencing chills and sweats but has not taken his temperature is unsure if he had a fever. Patient states he was given Zofran in the ambulance which minimally helped his nausea. Patient denies any chest pain, shortness of breath, change in bowel or bladder, lightheadedness, dizziness, change in vision, swelling, rash. - Related Data Home Medications Medication Instructions Recorded Confirmed Omeprazole 40 mg PO DAILY 11/04/20 08/18/21 Terazosin [Hytrin] 5 mg PO DAILY 11/04/20 08/18/21 HYDROcodone/APAP 10-325MG [[place] 1 tab PO QID 11/13/20 08/18/21 10-325] Tamsulosin HCl [Flomax] 0.4 mg PO DAILY 11/13/20 08/18/21 Previous Rx's Medication Instructions Recorded EPINEPHrine (Auto Inject) [Epipen] 0.3 mg IM ONCE PRN #1 pen 11/17/20 Allergies Allergy/AdvReac Type Severity Reaction Status Date / Time bee venom protein (honey bee) Allergy Anaphylaxis Verified 08/18/21 11:10 Review of Systems ROS Statement: Those systems with pertinent positive or pertinent negative responses have been documented in the HPI. ROS Other: All systems not noted in ROS Statement are negative. 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 Past Anesthesia/Blood Transfusion Reactions: No Reported Reaction Past Psychological History: No Psychological Hx Reported Smoking Status: Current every day smoker Past Alcohol Use History: None Reported, Rare Past Drug Use History: None Reported - Past Family History Father Family Medical History: Cancer Additional Family Medical History / Comment(s): bladder cancer, ddd Mother Family Medical History: Hyperlipidemia, Hypertension General Exam General appearance: alert, in no apparent distress Head exam: Present: atraumatic, normocephalic, normal inspection Eye exam: Present: normal appearance, PERRL, EOMI. Absent: scleral icterus, conjunctival injection, periorbital swelling Pupils: Present: normal accommodation ENT exam: Present: normal exam, mucous membranes moist Neck exam: Present: normal inspection. Absent: tenderness, meningismus, lymphadenopathy Respiratory exam: Present: normal lung sounds bilaterally. Absent: respiratory distress, wheezes, rales, rhonchi, stridor, chest wall tenderness Cardiovascular Exam: Present: regular rate, normal rhythm, normal heart sounds. Absent: systolic murmur, diastolic murmur, rubs, gallop, clicks GI/Abdominal exam: Present: soft, tenderness (Tender to palpation in all quadrants), normal bowel sounds, hernia (Periumbilical hernia palpated- reducible when palpated). Absent: distended, guarding, rebound, rigid Extremities exam: Present: normal inspection, full ROM, normal capillary refill. Absent: tenderness, pedal edema, joint swelling, calf tenderness Back exam: Present: full ROM. Absent: CVA tenderness (R), CVA tenderness (L), paraspinal tenderness, vertebral tenderness Neurological exam: Present: alert, oriented X3, CN II-XII intact Psychiatric exam: Present: normal affect, normal mood Skin exam: Present: warm, dry, intact, normal color. Absent: rash Course Vital Signs 08/18/21 08/18/21 08/18/21 10:25 10:31 12:07 Temperature 98.4 F 98.7 F Pulse Rate 68 64 70 Respiratory 18 18 18 Rate Blood Pressure 86/63 104/47 124/54 O2 Sat by Pulse 95 99 95 Oximetry Medical Decision Making - Medical Decision Making This 60-year-old male with a past medical history of Crohn's disease and periumbilical hernia presents emergency Department with nausea, vomiting and abdominal pain since 2 AM this morning. Patient with white blood cells 11.6, correlation unremarkable, creatinine 1.70 compared to 1.0 on 07/02/21. Possible lactic acid 2.4. COVID-19, influenza A/B not detected. CT abdomen and pelvis impression: Fluid dilated small bowel loops with fluid-filled prominent colon. Consider gastroenteritis. Differential diagnosis could include partial small bowel extraction and ileus. Periumbilical mesenteric fat containing hernia. Correlate for pain. Partial incarceration could be considered- on physical exam, hernia is reducible and minimally painful. Spoke with who agreed to admit patient to his services with surgery consult at. Patient placed on IV fluids and placed on clear liquid diet only. Discussed case in detail with my attending, Dr. Sawyer. Patient verbally agree to be admitted to the hospital for further workup, evaluation and treatment. - Lab Data Result diagrams: 08/18/21 11:06 08/18/21 11:06 Lab Results 08/18/21 08/18/21 08/18/21 Range/Units 11:06 11:06 11:06 WBC 11.6 H (3.8-10.6) k/uL RBC 5.60 (4.30-5.90) m/uL Hgb 16.9 (13.0-17.5) gm/dL Hct 51.3 (39.0-53.0) % MCV 91.5 (80.0-100.0) fL MCH 30.2 (25.0-35.0) pg MCHC 33.0 (31.0-37.0) g/dL RDW 14.1 (11.5-15.5) % Plt Count 243 (150-450) k/uL MPV 8.1 Neutrophils % 80 % Lymphocytes % 10 % Monocytes % 7 % Eosinophils % 1 % Basophils % 0 % Neutrophils # 9.3 H (1.3-7.7) k/uL Lymphocytes # 1.2 (1.0-4.8) k/uL Monocytes # 0.8 (0-1.0) k/uL Eosinophils # 0.1 (0-0.7) k/uL Basophils # 0.0 (0-0.2) k/uL Manual Slide Review Performed PT (9.0-12.0) sec INR (<1.2) APTT (22.0-30.0) sec Sodium 139 (137-145) mmol/L Potassium 4.3 (3.5-5.1) mmol/L Chloride 107 (98-107) mmol/L Carbon Dioxide 22 (22-30) mmol/L Anion Gap 10 mmol/L BUN 20 (9-20) mg/dL Creatinine 1.71 H (0.66-1.25) mg/dL Est GFR (CKD-EPI)AfAm 50 (>60 ml/min/1.73 sqM) Est GFR (CKD-EPI)NonAf 43 (>60 ml/min/1.73 sqM) Glucose 118 H (74-99) mg/dL Lactic Ac Sepsis Rflx Plasma Lactic Acid Marcello 2.4 H* (0.7-2.0) mmol/L Calcium 9.1 (8.4-10.2) mg/dL Magnesium 1.5 L (1.6-2.3) mg/dL Total Bilirubin 0.9 (0.2-1.3) mg/dL AST 29 (17-59) U/L ALT 25 (4-49) U/L Alkaline Phosphatase 87 (38-126) U/L Total Protein 8.4 H (6.3-8.2) g/dL Albumin 4.6 (3.5-5.0) g/dL Amylase 67 (30-110) U/L Lipase 125 (23-300) U/L Coronavirus (PCR) (Not Detectd) Influenza Type A RNA (Not Detectd) Influenza Type B (PCR) (Not Detectd) 08/18/21 08/18/21 08/18/21 Range/Units 11:06 11:06 11:58 WBC (3.8-10.6) k/uL RBC (4.30-5.90) m/uL Hgb (13.0-17.5) gm/dL Hct (39.0-53.0) % MCV (80.0-100.0) fL MCH (25.0-35.0) pg MCHC (31.0-37.0) g/dL RDW (11.5-15.5) % Plt Count (150-450) k/uL MPV Neutrophils % % Lymphocytes % % Monocytes % % Eosinophils % % Basophils % % Neutrophils # (1.3-7.7) k/uL Lymphocytes # (1.0-4.8) k/uL Monocytes # (0-1.0) k/uL Eosinophils # (0-0.7) k/uL Basophils # (0-0.2) k/uL Manual Slide Review PT (9.0-12.0) sec INR (<1.2) APTT (22.0-30.0) sec Sodium (137-145) mmol/L Potassium (3.5-5.1) mmol/L Chloride (98-107) mmol/L Carbon Dioxide (22-30) mmol/L Anion Gap mmol/L BUN (9-20) mg/dL Creatinine (0.66-1.25) mg/dL Est GFR (CKD-EPI)AfAm (>60 ml/min/1.73 sqM) Est GFR (CKD-EPI)NonAf (>60 ml/min/1.73 sqM) Glucose (74-99) mg/dL Lactic Ac Sepsis Rflx Y Plasma Lactic Acid Marcello (0.7-2.0) mmol/L Calcium (8.4-10.2) mg/dL Magnesium (1.6-2.3) mg/dL Total Bilirubin (0.2-1.3) mg/dL AST (17-59) U/L ALT (4-49) U/L Alkaline Phosphatase (38-126) U/L Total Protein (6.3-8.2) g/dL Albumin (3.5-5.0) g/dL Amylase (30-110) U/L Lipase (23-300) U/L Coronavirus (PCR) Not Detected (Not Detectd) Influenza Type A RNA Not Detected (Not Detectd) Influenza Type B (PCR) Not Detected (Not Detectd) 08/18/21 Range/Units 12:02 WBC (3.8-10.6) k/uL RBC (4.30-5.90) m/uL Hgb (13.0-17.5) gm/dL Hct (39.0-53.0) % MCV (80.0-100.0) fL MCH (25.0-35.0) pg MCHC (31.0-37.0) g/dL RDW (11.5-15.5) % Plt Count (150-450) k/uL MPV Neutrophils % % Lymphocytes % % Monocytes % % Eosinophils % % Basophils % % Neutrophils # (1.3-7.7) k/uL Lymphocytes # (1.0-4.8) k/uL Monocytes # (0-1.0) k/uL Eosinophils # (0-0.7) k/uL Basophils # (0-0.2) k/uL Manual Slide Review PT 10.9 (9.0-12.0) sec INR 1.0 (<1.2) APTT 22.2 (22.0-30.0) sec Sodium (137-145) mmol/L Potassium (3.5-5.1) mmol/L Chloride (98-107) mmol/L Carbon Dioxide (22-30) mmol/L Anion Gap mmol/L BUN (9-20) mg/dL Creatinine (0.66-1.25) mg/dL Est GFR (CKD-EPI)AfAm (>60 ml/min/1.73 sqM) Est GFR (CKD-EPI)NonAf (>60 ml/min/1.73 sqM) Glucose (74-99) mg/dL Lactic Ac Sepsis Rflx Plasma Lactic Acid Marcello (0.7-2.0) mmol/L Calcium (8.4-10.2) mg/dL Magnesium (1.6-2.3) mg/dL Total Bilirubin (0.2-1.3) mg/dL AST (17-59) U/L ALT (4-49) U/L Alkaline Phosphatase (38-126) U/L Total Protein (6.3-8.2) g/dL Albumin (3.5-5.0) g/dL Amylase (30-110) U/L Lipase (23-300) U/L Coronavirus (PCR) (Not Detectd) Influenza Type A RNA (Not Detectd) Influenza Type B (PCR) (Not Detectd) Disposition Clinical Impression: Gastroenteritis, Ileus, Abdominal pain, Periumbilical hernia, Acute kidney injury Disposition: ADMITTED IP TO THIS HOSP Condition: Serious Referrals: Louie Lipscomb DO [Primary Care Provider] - 1-2 days
[2021-08-18] MEDS ORDERED: METOCLOPRAMIDE 5 MG/ML 2 ML VIAL IVP STA (10:59)
[2021-08-18 11:47] LABS: Basophils % (A) 0 %; Eosinophils # (A) 0.1 k/uL (0-0.7); Eosinophils % (A) 1 %; HCT 51.3 % (39.0-53.0); HGB 16.9 gm/dL (13.0-17.5); Lymphocytes # (A) 1.2 k/uL (1.0-4.8); Lymphocytes % (A) 10 %; MCH 30.2 pg (25.0-35.0); MCV 91.5 fL (80.0-100.0); Mean Platelet Volume 8.1; Monocytes # (A) 0.8 k/uL (0-1.0); Monocytes % (A) 7 %; Neutrophils # (A) 9.3 k/uL (1.3-7.7); Neutrophils % (A) 80 %; Platelet Count 243 k/uL (150-450); RDW 14.1 % (11.5-15.5); WBC 11.6 k/uL (3.8-10.6)
[2021-08-18 11:49] LABS: Albumin 4.6 g/dL (3.5-5.0); Calcium 9.1 mg/dL (8.4-10.2); Magnesium 1.5 mg/dL (1.6-2.3); Potassium 4.3 mmol/L (3.5-5.1); Total Bilirubin 0.9 mg/dL (0.2-1.3); Total Protein 8.4 g/dL (6.3-8.2)
--- NOTE | 2021-08-18 12:12 | CT ---
EXAMINATION TYPE: CT abdomen pelvis w con DATE OF EXAM: 08/18/2021 COMPARISON: 12/17/2020 INDICATION: Abdominal pain DLP: 1146.5 mGycm, Automated exposure control for dose reduction was used. CONTRAST: 100 mL of Isovue 370. Study performed without Oral Contrast TECHNIQUE: Axial images were obtained from above the diaphragm to the pubic rami in the axial plane a t 5 mm thick sections. Reconstructed images are reviewed on the computer in the coronal plane. FINDINGS: Limited CT sections are obtained the lung bases. The lung bases are clear. There is a moderate size hiatal hernia present. CT ABDOMEN: Colon is distended with fluid. Correlate for gastroenteritis. Multiple small bowel loops contain fluid and are dilated. Ileus and partial small bowel obstruction should be considered within the differential Liver: Hepatic cysts are present. Spleen: Normal Pancreas: Normal Adrenal glands: The adrenal glands are normal. Gallbladder: Normal Kidneys: No masses are evident. No hydronephrosis is present. Posterior lateral left renal cyst krystin sures 2 cm. Delayed images were obtained through the kidneys, which remain unremarkable. Aorta: Normal Inferior vena cava: Normal. CT PELVIS: Fat containing periumbilical hernia is present. The opening is narrowed 0.7 cm. Some incre ased stranding may be within the periumbilical fat. Partial incarceration of fat containing hernia ma y be present. Appendix: Normal as visualized. Urinary bladder: Decompressed and cannot be well evaluated. Genitourinary structures: Prostate appears within normal limits. Osseous structures: No suspicious lytic or sclerotic lesions. May be a small bone island within the l eft hip. IMPRESSIONS: 1. Fluid dilated small bowel loops with fluid filled prominent colon. Consider gastroenteritis. Diff erential diagnosis could include partial small bowel obstruction and ileus. Follow-up is recommended. 2. Periumbilical mesenteric fat-containing hernia. Correlate for pain. Partial incarceration could be considered.
[2021-08-18 12:38] LABS: Partial Thromboplastin Time 22.2 sec (22.0-30.0); Prothrombin Time 10.9 sec (9.0-12.0)
[2021-08-18] MEDS ORDERED: NALOXONE 0.4 MG/ML 1 ML VIAL IV PRN (13:43)
[2021-08-18] MEDS: HYDROmorphone 0.5 MG/0.5 ML SYRINGE IVP PRN ×3 (14:50→22:11)
[2021-08-18] MEDS: SODIUM CHLORIDE 0.9% 1,000 ML IV SCH ×2 (14:50→22:11)
[2021-08-18] MEDS: ONDANSETRON 4 MG/2 ML VIAL IVP PRN (18:39)
[2021-08-18 18:49] LABS: Appearance,Urine Clear (Clear); Bilirubin,Urine 1+ (Negative); Blood,Urine Small (Negative); Color,Urine Yellow; Glucose,Urine (UA) Negative (Negative); Ketones,Urine Negative (Negative); Leukocyte Esterase,Urine Negative (Negative); Mucus,Urine Rare /hpf; Nitrite,Urine Negative (Negative); Protein,Urine 1+ (Negative); RBC,Urine 4 /hpf (0-5); Squamous Epithelial Cell,Urine <1 /hpf (0-4); Urobilinogen,Urine <2.0 mg/dL (<2.0); WBC,Urine 2 /hpf (0-5)
[2021-08-18 18:51] LABS: Specific Gravity,Urine >1.050 (1.001-1.035)
--- NOTE | 2021-08-18 23:01 | P.HPIM ---
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 He is known to have umbilical hernia was post to go for surgical intervention and was delay. With the pain is not going away ended up coming to the emergency department this morning where was seen and evaluated. CAT scan of the abdomen and shows fluid dilated small bowel loop with fluid-filled prominent: Consider gastroenteritis along with partial obstruction and ileus. Also had. Umbilical mesenteric fat- containing hernia. Laboratory value shows white blood cell 11 6 creatinine 1.71 with BUN of 20 significantly different than before with lactic acid 2.4 calcium 9.1 magnesium 1.5. UA was negative COVID-19 and influenza were negative as well. Patient was diagnosed with partial bowel obstruction along with incarcerated hernia. He stopped having nausea vomiting did not require an NG tube with the acute kidney injury with possible acute to rule out necrosis patient was started on hydration we will admit patient to the hospital will be seen general surgery if persistent pain NG tube will be place a she might need surgical intervention. REVIEW OF SYSTEMS Constitutional: No fever, no chills, no night sweats. No weight change. No weakness, fatigue or lethargy. No daytime sleepiness. EENT: No headache. No blurred vision or double vision, no loss of vision. No loss of Hearing, no ringing in the ears, no dizziness. No nasal drainage or congestion. No epistaxis. No sore throat. Lungs: No shortness of breath, cough, no sputum production. No wheezing. Cardiovascular: No chest pain, no lower extremity edema. No palpitations. No paroxysmal nocturnal dyspnea. No orthopnea. No lightheadedness or dizziness. No syncopal episodes. Abdominal: severe abdominal pain with nausea vomiting worsening discomfort with flareup of spasm and irritation. Genitourinary: decrease urine output with slight darker urine. Musculoskeletal: No myalgias. No muscle weakness, no gait dysfunction, no frequent falls. No back pain. No neck pain. Integumentary: No wounds, no lesions. No rash or pruritus. No unusual bruising. No change in hair or nails. Neurologic: No aphasia. No facial droop. No change in mentation. No head injury. No headache. No paralysis. No paresthesia. Psychiatric: No depression. No anxiety. No mood swings. Endocrine: No abnormal blood sugars. No weight change. No excessive sweating or thirst. No cold intolerance. SOCIAL HISTORY smoke 1 pack a day for 30 years,no alcohol abuse, no marijuana use,he is and lives with his . FAMILY HISTORY he has one child who is living and well. Has brother with history of ulcerative colitis sister is doing well. Father age 80 from [place], mother a 79 had COPD. PHYSICAL EXAMINATION Gen: This is well-developed in no acute respiratory distress no NG tube present. HEENT: Head is atraumatic, normocephalic. Pupils equal, round. Sclerae is anicteric. NECK: Supple. No JVD. No lymphadenopathy. No thyromegaly. LUNGS: Clear to auscultation. No wheezes or rhonchi. No intercostal retractions. HEART: Regular rate and rhythm. No murmur. ABDOMEN: soft with slight tenderness the left lower quadrant area in the mid abdominal region area, slight umbilical hernia, hyperactive bowel sounds. EXTREMITIES: No pedal edema. No calf tenderness. NEUROLOGICAL: Patient is awake, alert and oriented x3. Cranial nerves 2 through 12 are grossly intact. ASSESSMENT AND PLAN 1.severe abdominal pain: Secondary to partial obstruction along with history of colitis, patient had multiple surgical intervention in the past possibility of partial obstruction from adhesions extremely high at this point. 2 incarcerated umbilical hernia: Will be seen general surgery his symptoms improve at this point. 3 acute kidney injury: Most likely cuticular necrosis with a severity of dehydration and nausea vomiting, will do supportive care hydration continue to watch urine output repeat CMP in the morning. 4 history of chronic disease: Post multiple surgical intervention has been doing well up till now. 5 history of sleep apnea: Patient to bring his CPAP to the hospital. 6 BPH with no sign of urinary retention: Remain on Terazosin 5 mg a day along with Flomax 0.4 mg daily. 7 severe GERD: Remain on omeprazole 40 mg daily. 8 history of severe anaphylaxis reaction: Patient still have EpiPen to be used abdomen. 9 chronic pain syndrome: Has been on hydrocodone on regular basis. 10 GI prophylaxis: Patient will remain on omeprazole. 11 DVT prophylaxis: Knee-high MINO hose and early mobilization and heparin subcutaneous can be use by tomorrow if patient is likely for any intervention. CODE STATUS: Full code. COVID-19 testing was negative. Patient will be admitted to the hospital for a minimum of 2 night stay. 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 Past Anesthesia/Blood Transfusion Reactions: No Reported Reaction Past Psychological History: No Psychological Hx Reported Smoking Status: Current every day smoker Past Alcohol Use History: None Reported, Rare Past Drug Use History: None Reported - Past Family History Father Family Medical History: Cancer Additional Family Medical History / Comment(s): bladder cancer, ddd Mother Family Medical History: Hyperlipidemia, Hypertension Medications and Allergies Home Medications Medication Instructions Recorded Confirmed Type Omeprazole 40 mg PO DAILY 11/04/20 08/18/21 History Terazosin [Hytrin] 5 mg PO DAILY 11/04/20 08/18/21 History HYDROcodone/APAP 10-325MG [[place] 1 tab PO QID 11/13/20 08/18/21 History 10-325] Tamsulosin HCl [Flomax] 0.4 mg PO DAILY 11/13/20 08/18/21 History EPINEPHrine (Auto Inject) [Epipen] 0.3 mg IM ONCE PRN #1 pen 11/17/20 08/18/21 Rx Allergies Allergy/AdvReac Type Severity Reaction Status Date / Time bee venom protein (honey bee) Allergy Anaphylaxis Verified 08/18/21 11:10 Physical Exam Vitals: Vital Signs Temp Pulse Resp BP Pulse Ox 08/18/21 15:00 69 18 94/60 96 08/18/21 12:07 98.7 F 70 18 124/54 95 08/18/21 10:31 64 18 104/47 99 08/18/21 10:25 98.4 F 68 18 86/63 95 Intake and Output 08/18/21 08/18/21 08/18/21 06:59 14:59 22:59 Other: Weight 86.183 kg Results CBC & Chem 7: 08/18/21 11:06 08/18/21 11:06 Labs: Abnormal Lab Results - Last 24 Hours (Table) 08/18/21 08/18/21 08/18/21 Range/Units 11:06 11:06 11:06 WBC 11.6 H (3.8-10.6) k/uL Neutrophils # 9.3 H (1.3-7.7) k/uL Creatinine 1.71 H (0.66-1.25) mg/dL Glucose 118 H (74-99) mg/dL Plasma Lactic Acid Marcello 2.4 H* (0.7-2.0) mmol/L Magnesium 1.5 L (1.6-2.3) mg/dL Total Protein 8.4 H (6.3-8.2) g/dL
[2021-08-19] MEDS: HYDROcodone/APAP 10-325MG 1 EACH TAB PO PRN ×2 (01:18→19:42)
[2021-08-19] MEDS: HYDROmorphone 0.5 MG/0.5 ML SYRINGE IVP PRN ×7 (01:29→21:17)
[2021-08-19] MEDS: TAMSULOSIN 0.4 MG CAP.ER.24H PO SCH ×2 (08:43→08:46)
[2021-08-19] MEDS: DOXAZOSIN 4 MG TAB PO SCH ×2 (08:43→08:46)
[2021-08-19] MEDS: PANTOPRAZOLE 40 MG TABLET PO SCH ×2 (08:43→08:45)
[2021-08-19] MEDS: ONDANSETRON 4 MG/2 ML VIAL IVP PRN ×2 (08:51→19:41)
[2021-08-19] MEDS: SODIUM CHLORIDE 0.9% 1,000 ML IV SCH ×2 (11:22→16:30)
[2021-08-19] MEDS ORDERED: MAGNESIUM SULFATE-D5W PMX 1 GM in DEXTROSE/WATER 1 100ML.BAG IVPB ONE (16:05)
--- NOTE | 2021-08-19 16:10 | P.GSCN ---
History of Present Illness Consult date: 08/19/21 History of present illness: CHIEF COMPLAINT: Abdominal pain HISTORY OF PRESENT ILLNESS: This is a 60-year-old male who presented to the hospital with complaints of mid lower abdominal pain that started Tuesday morning around 2 AM. He reports having episodes of nausea and vomiting. Initially the vomiting was bile and brownish in color. Then transition to dry heaves. He has had no further vomiting since yesterday afternoon. Patient reports having liquidy stools. Did have chills and sweats. He does have a known history of Crohn's and is undergoing infusion treatments. He also follows up with Dr. Vasquez his colorectal surgeon. Patient has a known colovesical fistula. In which they're currently monitoring and he has a follow-up on August 29 for further imaging. Patient reports that he still occasionally passes air when he urinates. Patient has prior surgical history of 2 bowel resections for his Crohn's. He's also had fistulas developed because of the Crohn's. Also history of appendectomy. Patient's computed tomography scan of abdomen and pelvis d emonstrates fluid dilated small bowel loops with fluid-filled prominent colon. Consider gastroenteritis. Differential diagnosis could include partial small bowel obstruction and ileus. Periumbilical mesenteric fat-containing hernia. Partial incarceration could be considered. Patient reports that he is aware of the Umbilical hernia. And this is surgeon has been observing it. He does report occasional pain in that area. Denies any discoloration. Denies any fevers. Patient denies any blood in his stools. He reports the symptoms does not feel like his usual Crohn's. He reports that his been a while since she's had a Crohn's exacerbation. PAST MEDICAL HISTORY: See list. PAST SURGICAL HISTORY: See list. MEDICATIONS: See list. ALLERGIES: See list. SOCIAL HISTORY: No illicit drug use. REVIEW OF SYSTEMS: CONSTITUTIONAL: Denies fever or chills. HEENT: Denies blurred vision, vision changes, or eye pain. Denies hemoptysis CARDIOVASCULAR: Denies chest pain or pressure. RESPIRATORY: No shortness of breath. GASTROINTESTINAL: See HPI for pertinent findings HEMATOLOGIC: Denies bleeding disorders. GENITOURINARY: Denies any blood in urine or increased urinary frequency. SKIN: Denies pruitis. Denies rash. PHYSICAL EXAM: VITAL SIGNS: Reviewed GENERAL: Well-developed in no acute distress. HEENT: No sclera icterus. Extraocular movements grossly intact. Moist buccal mucosa. Head is atraumatic, normocephalic. No nasal drainage. ABDOMEN: Soft. Nondistended. Mild tenderness to palpation of the lower abdomen. NEUROLOGIC: Alert and oriented. Cranial nerves II through XII grossly intact. LABORATORY DATA: WBC is 11.6 hgb 16.9 platelet of 243 Sodium 139 potassium is 4.3 creatinine is 1.71 Lactic acid 2.4 down to 1.4 Magnesium 1.5 IMAGING: Computed tomography scan findings as stated above ASSESSMENT: 1. Abdominal pain with nausea and vomiting 2. Partial small bowel obstruction 3. Hypomagnesemia 4. History of Crohn's PLAN: -Continue to observe patient -Replace magnesium -Continue on a clear liquid diet -Continue supportive care -Encourage patient to ambulate Thank you for this consultation Physician Assembler Product note has been reviewed by physician. Signing provider agrees with the documented findings, assessment, and plan of care. I have personally seen and examined the patient, reviewed the PIN CLEANER /PAs history, exam and MDM and agree with the assessment and plan as written. Based on total visit time, I have performed more than 50% of the visit. As above: CAT scan films reviewed. Partial small bowel obstruction suspected based on that study. Continue clear liquid diet for today. We'll advance in the morning if doing well. Recommend GI consultation. Past Medical History Past Medical History: GERD/Reflux, Osteoarthritis (OA), Sleep Apnea/CPAP/BIPAP Additional Past Medical History / Comment(s): Chron's diagnosed at age 16 yrs, recurrent colitis, umbilical hernia, [place]/no device yet, nephrolithiasis/passed on his own, kidney infection, BPH, chronic lower back pain/DDD, insomnia, anaphyllactic reaction to bee stings. History of Any Multi-Drug Resistant Organisms: None Reported Past Surgical History: Appendectomy, Bowel Resection, Hernia Repair Additional Past Surgical History / Comment(s): multiple colonoscopies, 2 bowel resections age 17 and 29, multiple I&Ds d/t chrons causing fistulas, R knee arthroscopy, L foot injury/hardware/some hardware has been removed, pain procedures. Past Anesthesia/Blood Transfusion Reactions: No Reported Reaction Smoking Status: Current every day smoker - Past Family History Father Family Medical History: Cancer, COPD Additional Family Medical History / Comment(s): bladder cancer, ddd Mother Family Medical History: COPD, Hyperlipidemia, Hypertension Medications and Allergies Home Medications Medication Instructions Recorded Confirmed Type Omeprazole 40 mg PO DAILY 11/04/20 08/18/21 History Terazosin [Hytrin] 5 mg PO DAILY 11/04/20 08/18/21 History HYDROcodone/APAP 10-325MG [[place] 1 tab PO QID 11/13/20 08/18/21 History 10-325] Tamsulosin HCl [Flomax] 0.4 mg PO DAILY 11/13/20 08/18/21 History EPINEPHrine (Auto Inject) [Epipen] 0.3 mg IM ONCE PRN #1 pen 11/17/20 08/18/21 Rx Allergies Allergy/AdvReac Type Severity Reaction Status Date / Time bee venom protein (honey bee) Allergy Anaphylaxis Verified 08/18/21 11:10 Surgical - Exam Vital Signs Temp Pulse Resp BP Pulse Ox 98.4 F 68 18 86/63 95 08/18/21 10:25 08/18/21 10:25 08/18/21 10:25 08/18/21 10:25 08/18/21 10:25 Results - Labs 08/18/21 11:06 08/18/21 11:06 Abnormal Lab Results - Last 24 Hours (Table) 08/18/21 08/18/21 08/18/21 Range/Units 11:06 11:06 11:06 WBC 11.6 H (3.8-10.6) k/uL Neutrophils # 9.3 H (1.3-7.7) k/uL Creatinine 1.71 H (0.66-1.25) mg/dL Glucose 118 H (74-99) mg/dL Plasma Lactic Acid Marcello (0.7-2.0) mmol/L Magnesium 1.5 L (1.6-2.3) mg/dL Total Protein 8.4 H (6.3-8.2) g/dL Ur Specific [place] >1.050 H (1.001-1.035) Urine Protein 1+ H (Negative) Urine Blood Small H (Negative) Urine Bilirubin 1+ H (Negative) Urine Mucus Rare H (None) /hpf 08/18/21 Range/Units 11:06 WBC (3.8-10.6) k/uL Neutrophils # (1.3-7.7) k/uL Creatinine (0.66-1.25) mg/dL Glucose (74-99) mg/dL Plasma Lactic Acid Marcello 2.4 H* (0.7-2.0) mmol/L Magnesium (1.6-2.3) mg/dL Total Protein (6.3-8.2) g/dL Ur Specific [place] (1.001-1.035) Urine Protein (Negative) Urine Blood (Negative) Urine Bilirubin (Negative) Urine Mucus (None) /hpf Diabetes panel 08/18/21 Range/Units 11:06 Sodium 139 (137-145) mmol/L Potassium 4.3 (3.5-5.1) mmol/L Chloride 107 (98-107) mmol/L Carbon Dioxide 22 (22-30) mmol/L BUN 20 (9-20) mg/dL Creatinine 1.71 H (0.66-1.25) mg/dL Glucose 118 H (74-99) mg/dL Calcium 9.1 (8.4-10.2) mg/dL AST 29 (17-59) U/L ALT 25 (4-49) U/L Alkaline Phosphatase 87 (38-126) U/L Total Protein 8.4 H (6.3-8.2) g/dL Albumin 4.6 (3.5-5.0) g/dL Calcium panel 08/18/21 Range/Units 11:06 Calcium 9.1 (8.4-10.2) mg/dL Albumin 4.6 (3.5-5.0) g/dL Pituitary panel 08/18/21 Range/Units 11:06 Sodium 139 (137-145) mmol/L Potassium 4.3 (3.5-5.1) mmol/L Chloride 107 (98-107) mmol/L Carbon Dioxide 22 (22-30) mmol/L BUN 20 (9-20) mg/dL Creatinine 1.71 H (0.66-1.25) mg/dL Glucose 118 H (74-99) mg/dL Calcium 9.1 (8.4-10.2) mg/dL Adrenal panel 08/18/21 Range/Units 11:06 Sodium 139 (137-145) mmol/L Potassium 4.3 (3.5-5.1) mmol/L Chloride 107 (98-107) mmol/L Carbon Dioxide 22 (22-30) mmol/L BUN 20 (9-20) mg/dL Creatinine 1.71 H (0.66-1.25) mg/dL Glucose 118 H (74-99) mg/dL Calcium 9.1 (8.4-10.2) mg/dL Total Bilirubin 0.9 (0.2-1.3) mg/dL AST 29 (17-59) U/L ALT 25 (4-49) U/L Alkaline Phosphatase 87 (38-126) U/L Total Protein 8.4 H (6.3-8.2) g/dL Albumin 4.6 (3.5-5.0) g/dL
[2021-08-20] MEDS: HYDROmorphone 0.5 MG/0.5 ML SYRINGE IVP PRN ×2 (00:44→21:00)
[2021-08-20] MEDS: SODIUM CHLORIDE 0.9% 1,000 ML IV SCH ×4 (00:49→21:00)
[2021-08-20] MEDS: PANTOPRAZOLE 40 MG TABLET PO SCH (05:13)
[2021-08-20] MEDS: HYDROcodone/APAP 10-325MG 1 EACH TAB PO PRN ×3 (05:15→19:04)
[2021-08-20] MEDS: DOXAZOSIN 4 MG TAB PO SCH (07:02)
[2021-08-20] MEDS: ONDANSETRON 4 MG/2 ML VIAL IVP PRN (07:02)
[2021-08-20] MEDS: TAMSULOSIN 0.4 MG CAP.ER.24H PO SCH (07:02)
[2021-08-20 09:22] LABS: Basophils # (A) 0.01 X 10*3/uL (0.00-0.10); Basophils % (A) 0.2 %; Eosinophils # (A) 0.06 X 10*3/uL (0.04-0.35); HCT 42.7 % (39.6-50.0); HGB 13.9 g/dL (13.0-17.0); Immature Grans, Automated 0.3 %; Lymphocytes # (A) 1.65 X 10*3/uL (0.90-5.00); MCH 29.5 pg (27.0-32.0); MCHC 32.6 g/dL (32.0-37.0); MCV 90.7 fL (80.0-97.0); Mean Platelet Volume 9.9 fL (9.5-12.2); Monocytes # (A) 0.82 X 10*3/uL (0.20-1.00); Monocytes % (A) 13.9 %; NRBC Per 100 WBC 0 /100 WBCS (0.0-0.0); Neutrophils # (A) 3.34 X 10*3/uL (1.80-7.70); Neutrophils % (A) 56.6 %; Platelet Count 284 X 10*3/uL (140-440); RBC 4.71 X 10*6/uL (4.40-5.60)
[2021-08-20 09:26] LABS: African American GFR (CKD) 108.7 (60.0-200.0); Anion Gap 8.5 mmol/L (10.00-18.00); BUN/Creat Ratio 10.56 Ratio (12.00-20.00); Blood Urea Nitrogen 9.5 mg/dL (9.0-27.0); Calcium 8.5 mg/dL (8.7-10.3); Carbon Dioxide 21.5 mmol/L (20.0-27.5); Magnesium 2.1 mg/dL (1.5-2.4); Non-African American GFR(CKD) 93.8 (60.0-200.0); Potassium 4.2 mmol/L (3.5-5.5)
[2021-08-20] MEDS: PANTOPRAZOLE 40 MG/10 ML VIAL IVP SCH ×2 (09:51→20:04)
[2021-08-20] MEDS: MORPHINE SULFATE 2 MG/ML SYRINGE IVP PRN ×2 (09:52→15:01)
--- NOTE | 2021-08-20 10:22 | P.PN ---
Subjective Progress Note Date: 08/19/21 HISTORY OF PRESENT ILLNESS 60-year-old male one of Dr. Lipscomb patient with past medical history of chronic disease who had recurrent colitis post multiple surgery for partial r esection and I and D who is also known to have history of mild BPH symptoms and severe GERD. Patient was hospitalized last in November 2020 for anaphylaxis reaction, patient has been doing well still around 2:00 after midnight when developed to have severe onset of abdominal pain in the lower abdominal area and going across the: Side from the right to the left causing intractable pain and discomfort was associated with nausea and vomiting hook up his pain become very purulent the time pain apparently was 9 out of 10. He is known to have umbilical hernia was post to go for surgical intervention and was delay. With the pain is not going away ended up coming to the emergency department this morning where was seen and evaluated. CAT scan of the abdomen and shows fluid dilated small bowel loop with fluid-filled prominent: Consider gastroenteritis along with partial obstruction and ileus. Also had. Umbilical mesenteric fat- containing hernia. Laboratory value shows white blood cell 11 6 creatinine 1.71 with BUN of 20 significantly different than before with lactic acid 2.4 calcium 9.1 magnesium 1.5. UA was negative COVID-19 and influenza were negative as well. Patient was diagnosed with partial bowel obstruction along with incarcerated hernia. He stopped having nausea vomiting did not require an NG tube with the acute kidney injury with possible acute to rule out necrosis patient was started on hydration we will admit patient to the hospital will be seen general surgery if persistent pain NG tube will be place a she might need surgical intervention. 08/19: Patient is seen today in the emergency center waiting for a bed in the [facility] floor. He continues to have abdominal soreness and nausea. He is on a clear liquid diet, continued on IV fluids, Zofran and Dilaudid for pain. Patient is afebrile, heart rate 65, blood pressure 99/66, pulse ox 94% on room air. Repeat blood work will be ordered for tomorrow. His repeat lactic acid was 1.4. Consult in place with Dr. Walker per patient's request. REVIEW OF SYSTEMS Constitutional: No fever, no chills, no night sweats. No weight change. No weakness, fatigue or lethargy. No daytime sleepiness. EENT: No headache. No blurred vision or double vision, no loss of vision. No loss of Hearing, no ringing in the ears, no dizziness. No nasal drainage or congestion. No epistaxis. No sore throat. Lungs: No shortness of breath, cough, no sputum production. No wheezing. Cardiovascular: No chest pain, no lower extremity edema. No palpitations. No paroxysmal nocturnal dyspnea. No orthopnea. No lightheadedness or dizziness. No syncopal episodes. Abdominal: Continued abdominal pain with nausea no vomiting worsening discomfort with flareup of spasm and irritation. Genitourinary: decrease urine output with slight darker urine. Musculoskeletal: No myalgias. No muscle weakness, no gait dysfunction, no frequent falls. No back pain. No neck pain. Integumentary: No wounds, no lesions. No rash or pruritus. No unusual bruising. No change in hair or nails. Neurologic: No aphasia. No facial droop. No change in mentation. No head injury. No headache. No paralysis. No paresthesia. Psychiatric: No depression. No anxiety. No mood swings. Endocrine: No abnormal blood sugars. No weight change. No excessive sweating or thirst. No cold intolerance. PHYSICAL EXAMINATION Gen: This is well-developed in no acute respiratory distress no NG tube present. HEENT: Head is atraumatic, normocephalic. Pupils equal, round. Sclerae is anicteric. NECK: Supple. No JVD. No lymphadenopathy. No thyromegaly. LUNGS: Clear to auscultation. No wheezes or rhonchi. No intercostal retractions. HEART: Regular rate and rhythm. No murmur. ABDOMEN: soft with slight tenderness, slightly firm the left lower quadrant area in the mid abdominal region area, slight umbilical hernia, hyperactive bowel sounds. EXTREMITIES: No pedal edema. No calf tenderness. NEUROLOGICAL: Patient is awake, alert and oriented x3. Cranial nerves 2 through 12 are grossly intact. ASSESSMENT AND PLAN 1.severe abdominal pain: Secondary to partial obstruction along with history of colitis, patient had multiple surgical intervention in the past possibility of partial obstruction from adhesions extremely high at this point. Continue IV fluids, Dilaudid for pain, Zofran for nausea, consult with general surgery. 2 incarcerated umbilical hernia: Will be seen general surgery his symptoms improve at this point. 3 acute kidney injury: Most likely cuticular necrosis with a severity of dehydration and nausea vomiting, will do supportive care hydration continue to watch urine output repeat CMP in the morning. 4 history of chronic disease: Post multiple surgical intervention has been doing well up till now. 5 history of sleep apnea: Patient to bring his CPAP to the hospital. 6 BPH with no sign of urinary retention: Remain on Terazosin 5 mg a day along with Flomax 0.4 mg daily. 7 severe GERD: Remain on omeprazole 40 mg daily. 8 history of severe anaphylaxis reaction: Patient still have EpiPen to be used abdomen. 9 chronic pain syndrome: Has been on hydrocodone on regular basis. 10 GI prophylaxis: Patient will remain on omeprazole. 11 DVT prophylaxis: Knee-high MINO hose and early mobilization and heparin subcutaneous can be use by tomorrow if patient is likely for any intervention. CODE STATUS: Full code. COVID-19 testing was negative. Impression and plan of care have been directed as dictated by the signing physician. Verónica French nurse practitioner acting as scribe for signing physician. Objective - Vital Signs Vital signs: Vital Signs Temp 98.9 F 08/19/21 05:23 Pulse 65 08/19/21 05:23 Resp 16 08/19/21 05:23 BP 99/66 08/19/21 05:23 Pulse Ox 94 L 08/19/21 05:23 Intake & Output 08/18/21 08/19/21 08/19/21 18:59 06:59 18:59 Weight 86.183 kg - Labs CBC & Chem 7: 08/20/21 05:12 08/20/21 05:12 Labs: Abnormal Lab Results - Last 24 Hours (Table) 08/18/21 08/18/21 08/18/21 Range/Units 11:06 11:06 11:06 WBC 11.6 H (3.8-10.6) k/uL Neutrophils # 9.3 H (1.3-7.7) k/uL Creatinine 1.71 H (0.66-1.25) mg/dL Glucose 118 H (74-99) mg/dL Plasma Lactic Acid [place]cell[place] (0.7-2.0) mmol/L Magnesium 1.5 L (1.6-2.3) mg/dL Total Protein 8.4 H (6.3-8.2) g/dL Ur Specific [place] >1.050 H (1.001-1.035) Urine Protein 1+ H (Negative) Urine Blood Small H (Negative) Urine Bilirubin 1+ H (Negative) Urine Mucus Rare H (None) /hpf 08/18/21 Range/Units 11:06 WBC (3.8-10.6) k/uL Neutrophils # (1.3-7.7) k/uL Creatinine (0.66-1.25) mg/dL Glucose (74-99) mg/dL Plasma Lactic Acid [place]cell[place] 2.4 H* (0.7-2.0) mmol/L Magnesium (1.6-2.3) mg/dL Total Protein (6.3-8.2) g/dL Ur Specific [place] (1.001-1.035) Urine Protein (Negative) Urine Blood (Negative) Urine Bilirubin (Negative) Urine Mucus (None) /hpf
--- NOTE | 2021-08-20 10:25 | P.PN ---
Subjective Progress Note Date: 08/20/21 HISTORY OF PRESENT ILLNESS 60-year-old male one of Dr. Lipscomb patient with past medical history of chronic disease who had recurrent colitis post multiple surgery for partial r esection and I and D who is also known to have history of mild BPH symptoms and severe GERD. Patient was hospitalized last in November 2020 for anaphylaxis reaction, patient has been doing well still around 2:00 after midnight when developed to have severe onset of abdominal pain in the lower abdominal area and going across the: Side from the right to the left causing intractable pain and discomfort was associated with nausea and vomiting cyanide pot tender his pain become very purulent the time pain apparently was 9 out of 10. He is known to have umbilical hernia was post to go for surgical intervention and was delay. With the pain is not going away ended up coming to the emergency department this morning where was seen and evaluated. CAT scan of the abdomen and shows fluid dilated small bowel loop with fluid-filled prominent: Consider gastroenteritis along with partial obstruction and ileus. Also had. Umbilical mesenteric fat- containing hernia. Laboratory value shows white blood cell 11 6 creatinine 1.71 with BUN of 20 significantly different than before with lactic acid 2.4 calcium 9.1 magnesium 1.5. UA was negative COVID-19 and influenza were negative as well. Patient was diagnosed with partial bowel obstruction along with incarcerated hernia. He stopped having nausea vomiting did not require an NG tube with the acute kidney injury with possible acute to rule out necrosis patient was started on hydration we will admit patient to the hospital will be seen general surgery if persistent pain NG tube will be place a she might need surgical intervention. 08/19: Patient is seen today in the emergency center waiting for a bed in the [facility] floor. He continues to have abdominal soreness and nausea. He is on a clear liquid diet, continued on IV fluids, Zofran and Dilaudid for pain. Patient is afebrile, heart rate 65, blood pressure 99/66, pulse ox 94% on room air. Repeat blood work will be ordered for tomorrow. His repeat lactic acid was 1.4. Consult in place with Dr. Walker per patient's request. 08/20: Patient is seen today on the [facility] floor. He was up eating a shower this morning with the help of his . He states he tried it take clear liquids and yesterday but did not tolerate and had a very rough night. Abdomen is firm. He does not feel the Dilaudid is helping and morphine will also be added. He states he had some dry heaves this morning complaining of heartburn. Protonix increased to twice daily and changed to IV. He has been afebrile, heart rate 65, blood pressure 99/66, pulse ox 94% on room air. CBC was unremarkable. Anion gap 8.5 otherwise electrolytes and renal function normal. Await further recommendations from Dr. Walker. REVIEW OF SYSTEMS Constitutional: No fever, no chills, no night sweats. No weight change. No weakness, fatigue or lethargy. No daytime sleepiness. EENT: No headache. No blurred vision or double vision, no loss of vision. No loss of Hearing, no ringing in the ears, no dizziness. No nasal drainage or congestion. No epistaxis. No sore throat. Lungs: No shortness of breath, cough, no sputum production. No wheezing. Cardiovascular: No chest pain, no lower extremity edema. No palpitations. No paroxysmal nocturnal dyspnea. No orthopnea. No lightheadedness or dizziness. No syncopal episodes. Abdominal: Continued abdominal pain with nausea reports vomiting worsening discomfort with flareup of spasm and irritation. Genitourinary: decrease urine output with slight darker urine. Musculoskeletal: No myalgias. No muscle weakness, no gait dysfunction, no frequent falls. No back pain. No neck pain. Integumentary: No wounds, no lesions. No rash or pruritus. No unusual bruising. No change in hair or nails. Neurologic: No aphasia. No facial droop. No change in mentation. No head injury. No headache. No paralysis. No paresthesia. Psychiatric: No depression. No anxiety. No mood swings. Endocrine: No abnormal blood sugars. No weight change. No excessive sweating or thirst. No cold intolerance. PHYSICAL EXAMINATION Gen: This is well-developed in no acute respiratory distress no NG tube present. HEENT: Head is atraumatic, normocephalic. Pupils equal, round. Sclerae is anicteric. NECK: Supple. No JVD. No lymphadenopathy. No thyromegaly. LUNGS: Clear to auscultation. No wheezes or rhonchi. No intercostal retraction s. HEART: Regular rate and rhythm. No murmur. ABDOMEN: soft with slight tenderness, firmnes, slight umbilical hernia. EXTREMITIES: No pedal edema. No calf tenderness. NEUROLOGICAL: Patient is awake, alert and oriented x3. Cranial nerves 2 through 12 are grossly intact. ASSESSMENT AND PLAN 1.severe abdominal pain: Secondary to partial obstruction along with history of colitis, patient had multiple surgical intervention in the past possibility of partial obstruction from adhesions extremely high at this point. Continue IV fluids, Dilaudid for pain, Zofran for nausea, consult with general surgery. Patient may require repeat CAT scan at this point. Not tolerating clear liquids well. 2 incarcerated umbilical hernia: Will be seen general surgery his symptoms imp rove at this point. 3 acute kidney injury: Most likely cuticular necrosis with a severity of dehydr ation and nausea vomiting, will do supportive care hydration continue to watch urine output repeat CMP in the morning. 4 history of chronic disease: Post multiple surgical intervention has been doing well up till now. 5 history of sleep apnea: Patient to bring his CPAP to the hospital. 6 BPH with no sign of urinary retention: Remain on Terazosin 5 mg a day along with Flomax 0.4 mg daily. 7 severe GERD: Remain on omeprazole 40 mg daily. 8 history of severe anaphylaxis reaction: Patient still have EpiPen to be used abdomen. 9 chronic pain syndrome: Has been on hydrocodone on regular basis. 10 GI prophylaxis: Patient will remain on omeprazole. 11 DVT prophylaxis: Knee-high MINO hose and early mobilization and heparin subcutaneous can be use by tomorrow if patient is likely for any intervention. CODE STATUS: Full code. COVID-19 testing was negative. Impression and plan of care have been directed as dictated by the signing physician. Verónica French nurse practitioner acting as scribe for signing physician. Objective - Vital Signs Vital signs: Vital Signs Temp 97.4 F L 08/20/21 04:52 Pulse 61 08/20/21 04:52 Resp 18 08/20/21 04:52 BP 131/77 08/20/21 04:52 Pulse Ox 94 L 08/20/21 04:52 Intake & Output 08/19/21 08/20/21 08/20/21 18:59 06:59 18:59 Intake Total 1560 1560 Balance 156 1560 Weight 86.183 kg Intake: Intake, IV Titration 1559 1560 Amount Sodium Chloride 0.9% 1, 1560 1560 000 ml @ 130 mls/hr IV . [id number] [facility] Rx#:[id number] - Labs CBC & Chem 7: 08/20/21 05:12 08/20/21 05:12
--- NOTE | 2021-08-20 12:13 | XR ---
EXAMINATION TYPE: XR abdomen 2V DATE OF EXAM: 08/20/2021 COMPARISON: NONE HISTORY: Pain TECHNIQUE: One view abdominal series FINDINGS: The osseous structures are intact. The bowel gas pattern is nonspecific. Markedly dilated bowel loop s in the mid and left abdomen. Arthropathy of the hips. Calcifications in the pelvis noted. Hypertrop hic and degenerative change spine. Underlying COPD noted. IMPRESSION: 1. Markedly dilated bowel loops correlate for bowel obstruction versus severe ileus.
--- NOTE | 2021-08-20 14:41 | P.PN ---
Subjective Progress Note Date: 08/20/21 CHIEF COMPLAINT: Partial small bowel obstruction HISTORY OF PRESENT ILLNESS: Patient reporting increase in abdominal pain and abdominal distention. He is rating his pain about a 6 out of 10. He has been having dry heaves. He stopped drinking any of the liquids. He denies any flatus. He has been having some watery yellow stool. Afebrile. WBC is down from 11.6-5.9 magnesium 2.1 PHYSICAL EXAM: VITAL SIGNS: Reviewed. GENERAL: Well-developed in no acute distress. HEENT: No sclera icterus. Extraocular movements grossly intact. Moist buccal mucosa. Head is atraumatic, normocephalic. ABDOMEN: Distended. Diffuse tenderness. Umbilical hernia reducible. NEUROLOGIC: Alert and oriented. Cranial nerves II through XII grossly intact. ASSESSMENT: 1. Partial small bowel obstruction 2. Periumbilical hernia reducible 3. Hypomagnesemia corrected 4. History of Crohn's PLAN: -Due to increased abdominal distention and pain. Abdominal x-ray ordered -Further recommendations forthcoming per surgeon -Continue supportive care -Recommend GI consult due to history of Crohn's -Continue pain medication as needed -Continue antibiotics Physician Child Care Leader note has been reviewed by physician. Signing provider agrees with the documented findings, assessment, and plan of care. I have personally seen and examined the patient, reviewed the GAME PROGRAMER /PAs history, exam and MDM and agree with the assessment and plan as written. Based on total visit time, I have performed more than 50% of the visit. As above: Patient having loose stools. He was having increased heartburn and nausea last night. No vomiting. Feels better currently. X-ray showed dilated small bowel loops. Keep nothing by mouth for now. Still would advise GI evaluation given the loose stools and the history of severe Crohn's disease. Objective - Vital Signs Vital signs: Vital Signs Temp 98.1 F 08/20/21 11:48 Pulse 50 L 08/20/21 11:48 Resp 16 08/20/21 11:48 BP 125/77 08/20/21 11:48 Pulse Ox 94 L 08/20/21 11:48 Intake & Output 08/19/21 08/20/21 08/20/21 18:59 06:59 18:59 Intake Total 1560 1560 240 Balance 1560 1560 240 Weight 86.183 kg Intake: Intake, IV Titration 1560 1560 Amount Sodium Chloride 0.9% 1, 1560 1560 000 ml @ 130 mls/hr IV . Q7H42M [facility] Rx#:[id number] Oral 240 - Labs CBC & Chem 7: 08/20/21 05:12 08/20/21 05:12 Labs: Abnormal Lab Results - Last 24 Hours (Table) 08/20/21 Range/Units 05:12 Anion Gap 8.50 L (10.00-18.00) mmol/L BUN/Creatinine Ratio 10.56 L (12.00-20.00) Ratio Calcium 8.5 L (8.7-10.3) mg/dL
[2021-08-21] MEDS: MORPHINE SULFATE 2 MG/ML SYRINGE IVP PRN ×2 (01:22→04:52)
[2021-08-21] MEDS: SODIUM CHLORIDE 0.9% 1,000 ML IV SCH ×3 (05:13→20:32)
[2021-08-21] MEDS ORDERED: FUROSEMIDE 10 MG/ML 2 ML VIAL IV ONE (05:17)
[2021-08-21] MEDS: TAMSULOSIN 0.4 MG CAP.ER.24H PO SCH (08:14)
[2021-08-21] MEDS: HYDROcodone/APAP 10-325MG 1 EACH TAB PO PRN ×2 (08:14→22:25)
[2021-08-21] MEDS: PANTOPRAZOLE 40 MG/10 ML VIAL IVP SCH ×2 (08:14→20:32)
[2021-08-21] MEDS: DOXAZOSIN 4 MG TAB PO SCH (08:17)
[2021-08-21 08:49] LABS: HGB 12.7 g/dL (13.0-17.0); MCHC 32.6 g/dL (32.0-37.0); Mean Platelet Volume 10.3 fL (9.5-12.2); NRBC Per 100 WBC 0 /100 WBCS (0.0-0.0); Platelet Count 244 X 10*3/uL (140-440); RBC 4.38 X 10*6/uL (4.40-5.60); RDW 13.8 % (11.5-14.5); WBC 5.06 X 10*3/uL (4.50-10.00)
[2021-08-21 09:05] LABS: African American GFR (CKD) 99.9 (60.0-200.0); Albumin 3.7 g/dL (3.8-4.9); Albumin/Globulin Ratio 1.31 (1.60-3.17); BUN/Creat Ratio 6.81 Ratio (12.00-20.00); Blood Urea Nitrogen 6.6 mg/dL (9.0-27.0); Calcium 8.7 mg/dL (8.7-10.3); Carbon Dioxide 22.6 mmol/L (20.0-27.5); Globulin 2.8 g/dL (1.6-3.3); Non-African American GFR(CKD) 86.2 (60.0-200.0); Potassium 3.9 mmol/L (3.5-5.5); Total Bilirubin 0.7 mg/dL (0.30-1.20); Total Protein 6.5 g/dL (6.2-8.2)
--- NOTE | 2021-08-21 09:14 | XR ---
EXAMINATION TYPE: XR abdomen 2V DATE OF EXAM: 08/21/2021 COMPARISON: 08/20/2021 HISTORY: Pain TECHNIQUE: two view abdominal series FINDINGS: The osseous structures are intact. The bowel gas pattern is nonspecific. Markedly dilated bowel loops in the mid and left abdomen. Arthropathy of the hips. Calcifications in the pelvis noted. Hypertroph ic and degenerative change spine. Underlying COPD noted. IMPRESSION: 1. Markedly dilated bowel loops correlate for bowel obstruction versus severe ileus.
--- NOTE | 2021-08-21 11:48 | P.PN ---
Subjective Progress Note Date: 08/21/21 CHIEF COMPLAINT: Partial small bowel obstruction HISTORY OF PRESENT ILLNESS: Patient reports that he is feeling better today. He denies any abdominal pain. He is having bowel movements and flatus. Denies any dry heaves or nausea. Abdominal x-ray from this morning reported markedly dilated bowel loops correlate for bowel obstruction versus severe ileus. Afebrile. WBC 5.06 hemoglobin 12.7 platelets 244 sodium 138 potassium 3.9 creatinine 1.0 PHYSICAL EXAM: VITAL SIGNS: Reviewed. GENERAL: Well-developed in no acute distress. HEENT: No sclera icterus. Extraocular movements grossly intact. Moist buccal mucosa. Head is atraumatic, normocephalic. ABDOMEN: Abdomen softer than yesterday. Distended. Nontender Umbilical hernia reducible. NEUROLOGIC: Alert and oriented. Cranial nerves II through XII grossly intact. ASSESSMENT: 1. Partial small bowel obstruction 2. Periumbilical hernia reducible 3. Hypomagnesemia corrected 4. History of Crohn's PLAN: -Start clear liquid diet -Recommend no discharge today and to continue to monitor patient -Continue supportive care -Continue pain medication as needed Physician Basket Operator note has been reviewed by physician. Signing provider agrees with the documented findings, assessment, and plan of care. I have personally seen and examined the patient, reviewed the STRETCHER LEVELER OPERATOR /PAs history, exam and MDM and agree with the assessment and plan as written. Based on total visit time, I have performed more than 50% of the visit. As above: Patient feels better today. Tolerating clear liquids without nausea or vomiting. He had another large stool today. Abdominal x-rays still show small bowel distention however this could be chronic given the patient's history of fistula lysing Crohn's. We'll see how the patient does overnight. If doing well tomorrow May advance diet slowly. May discharge tolerates. Outpatient follow-up with his colorectal surgeon and GI physician arranged. Objective - Vital Signs Vital signs: Vital Signs Temp 98.2 F 08/21/21 05:00 Pulse 50 L 08/21/21 05:00 Resp 16 08/21/21 05:00 BP 139/80 08/21/21 05:00 Pulse Ox 93 L 08/21/21 05:00 Intake & Output 08/20/21 08/21/21 08/21/21 18:59 06:59 18:59 Intake Total 480 2160 Balance 480 2160 Intake: Intake, IV Titration 1560 Amount Sodium Chloride 0.9% 1, 1560 000 ml @ 130 mls/hr IV . Q7H42M [facility] Rx#:[id number] Oral 480 600 Other: # Voids 4 2 - Labs CBC & Chem 7: 08/21/21 06:18 08/21/21 06:18 Labs: Abnormal Lab Results - Last 24 Hours (Table) 08/21/21 08/21/21 Range/Units 06:18 06:18 RBC 4.38 L (4.40-5.60) X 10*6/uL Hgb 12.7 L (13.0-17.0) g/dL Hct 39.0 L (39.6-50.0) % Anion Gap 8.00 L (10.00-18.00) mmol/L BUN 6.6 L (9.0-27.0) mg/dL BUN/Creatinine Ratio 6.81 L (12.00-20.00) Ratio Albumin 3.7 L (3.8-4.9) g/dL Albumin/Globulin Ratio 1.31 L (1.60-3.17) g/dL
--- NOTE | 2021-08-21 11:50 | P.PN ---
Subjective Progress Note Date: 08/21/21 HISTORY OF PRESENT ILLNESS 60-year-old male one of Dr. Lipscomb patient with past medical history of chronic disease who had recurrent colitis post multiple surgery for partial r esection and I and D who is also known to have history of mild BPH symptoms and severe GERD. Patient was hospitalized last in November 2020 for anaphylaxis reaction, patient has been doing well still around 2:00 after midnight when developed to have severe onset of abdominal pain in the lower abdominal area and going across the: Side from the right to the left causing intractable pain and discomfort was associated with nausea and vomiting outpatient coder his pain become very purulent the time pain apparently was 9 out of 10. He is known to have umbilical hernia was post to go for surgical intervention and was delay. With the pain is not going away ended up coming to the emergency department this morning where was seen and evaluated. CAT scan of the abdomen and shows fluid dilated small bowel loop with fluid-filled prominent: Consider gastroenteritis along with partial obstruction and ileus. Also had. Umbilical mesenteric fat- containing hernia. Laboratory value shows white blood cell 11 6 creatinine 1.71 with BUN of 20 significantly different than before with lactic acid 2.4 calcium 9.1 magnesium 1.5. UA was negative COVID-19 and influenza were negative as well. Patient was diagnosed with partial bowel obstruction along with incarcerated hernia. He stopped having nausea vomiting did not require an NG tube with the acute kidney injury with possible acute to rule out necrosis patient was started on hydration we will admit patient to the hospital will be seen general surgery if persistent pain NG tube will be place a she might need surgical intervention. 08/19: Patient is seen today in the emergency center waiting for a bed in the [facility] floor. He continues to have abdominal soreness and nausea. He is on a clear liquid diet, continued on IV fluids, Zofran and Dilaudid for pain. Patient is afebrile, heart rate 65, blood pressure 99/66, pulse ox 94% on room air. Repeat blood work will be ordered for tomorrow. His repeat lactic acid was 1.4. Consult in place with Dr. Walker per patient's request. 08/20: Patient is seen today on the [facility] floor. He was up eating a shower this morning with the help of his . He states he tried it take clear liquids and yesterday but did not tolerate and had a very rough night. Abdomen is firm. He does not feel the Dilaudid is helping and morphine will also be added. He states he had some dry heaves this morning complaining of heartburn. Protonix increased to twice daily and changed to IV. He has been afebrile, heart rate 65, blood pressure 99/66, pulse ox 94% on room air. CBC was unremarkable. Anion gap 8.5 otherwise electrolytes and renal function normal. Await further recommendations from Dr. Walker. 08/21: Patient has been afebrile, heart rate 50, blood pressure 139/80, pulse ox 93% on room air. Abdominal x-ray from yesterday revealed markedly dilated bowel loops correlate for bowel obstruction versus severe ileus. General surgery is recommending consult with GI but we have chosen to hold off as patient follows with GI and colorectal specialist outpatient. Patient is continued on IV fluids , Dilaudid or morphine for pain and Zofran for nausea. Patient states that he is feeling much better this moring. He had bowel movement about 3 am and abdomen is less distended. He is hungry this moring and would like diet. We will order abdominal x-ray and await further recommendations from Dr. Walker. REVIEW OF SYSTEMS Constitutional: No fever, no chills, no night sweats. No weight change. No weakness, fatigue or lethargy. No daytime sleepiness. EENT: No headache. No blurred vision or double vision, no loss of vision. No loss of Hearing, no ringing in the ears, no dizziness. No nasal drainage or congestion. No epistaxis. No sore throat. Lungs: No shortness of breath, cough, no sputum production. No wheezing. Cardiovascular: No chest pain, no lower extremity edema. No palpitations. No paroxysmal nocturnal dyspnea. No orthopnea. No lightheadedness or dizziness. No syncopal episodes. Abdominal: Improved abdominal pain no nausea no vomiting worsening discomfort with flareup of spasm and irritation. Genitourinary: decrease urine output with slight darker urine. Musculoskeletal: No myalgias. No muscle weakness, no gait dysfunction, no frequent falls. No back pain. No neck pain. Integumentary: No wounds, no lesions. No rash or pruritus. No unusual bruising. No change in hair or nails. Neurologic: No aphasia. No facial droop. No change in mentation. No head injury. No headache. No paralysis. No paresthesia. Psychiatric: No depression. No anxiety. No mood swings. Endocrine: No abnormal blood sugars. No weight change. No excessive sweating or thirst. No cold intolerance. PHYSICAL EXAMINATION Gen: This is well-developed in no acute respiratory distress no NG tube present. HEENT: Head is atraumatic, normocephalic. Pupils equal, round. Sclerae is anicteric. NECK: Supple. No JVD. No lymphadenopathy. No thyromegaly. LUNGS: Clear to auscultation. No wheezes or rhonchi. No intercostal retractions . HEART: Regular rate and rhythm. No murmur. ABDOMEN: soft with slight tenderness, firmnes, slight umbilical hernia. EXTREMITIES: No pedal edema. No calf tenderness. NEUROLOGICAL: Patient is awake, alert and oriented x3. Cranial nerves 2 through 12 are grossly intact. ASSESSMENT AND PLAN 1.severe abdominal pain: Secondary to bowel obstruction along with history of colitis, patient had multiple surgical intervention in the past. Continue IV fluids, Dilaudid for pain, Zofran for nausea, consult with general surgery. 2 incarcerated umbilical hernia: Will be seen general surgery his symptoms improve at this point. 3 acute kidney injury: Most likely cuticular necrosis with a severity of dehydration and nausea vomiting, will do supportive care hydration continue to watch urine output repeat CMP in the morning. 4 history of chronic disease: Post multiple surgical intervention has been doing well up till now. 5 history of sleep apnea: Patient to bring his CPAP to the hospital. 6 BPH with no sign of urinary retention: Remain on Terazosin 5 mg a day along with Flomax 0.4 mg daily. 7 severe GERD: Remain onProtonix 40 mg twice daily. 8 history of severe anaphylaxis reaction: Patient still have EpiPen to be used abdomen. 9 chronic pain syndrome: Has been on hydrocodone on regular basis. 10 GI prophylaxis: Patient will remain on omeprazole. 11 DVT prophylaxis: Knee-high MINO hose and early mobilization and heparin subcutaneous can be use by tomorrow if patient is likely for any intervention. CODE STATUS: Full code. COVID-19 testing was negative. Impression and plan of care have been directed as dictated by the signing physician. Verónica French nurse practitioner acting as scribe for signing physician. Objective - Vital Signs Vital signs: Vital Signs Temp 98.2 F 08/21/21 05:00 Pulse 50 L 08/21/21 05:00 Resp 16 08/21/21 05:00 BP 139/80 08/21/21 05:00 Pulse Ox 93 L 08/21/21 05:00 Intake & Output 08/20/21 08/21/21 08/21/21 18:59 06:59 18:59 Intake Total 480 2160 Balance 480 2160 Intake: Intake, IV Titration 1560 Amount Sodium Chloride 0.9% 1, 1560 000 ml @ 130 mls/hr IV . Q7H42M [facility] Rx#:[id number] Oral 480 600 Other: # Voids 4 2 - Labs CBC & Chem 7: 08/21/21 06:18 08/21/21 06:18 Labs: Abnormal Lab Results - Last 24 Hours (Table) 08/20/21 Range/Units 05:12 Anion Gap 8.50 L (10.00-18.00) mmol/L BUN/Creatinine Ratio 10.56 L (12.00-20.00) Ratio Calcium 8.5 L (8.7-10.3) mg/dL
[2021-08-22 00:31] VITALS: RESP 18
[2021-08-22] MEDS: HYDROmorphone 0.5 MG/0.5 ML SYRINGE IVP PRN (01:45)
[2021-08-22] MEDS: SODIUM CHLORIDE 0.9% 1,000 ML IV SCH ×2 (02:52→09:08)
[2021-08-22 04:09] VITALS: BP 139/88; PULSE 52; TEMP 98.6
[2021-08-22] MEDS: TAMSULOSIN 0.4 MG CAP.ER.24H PO SCH (09:09)
[2021-08-22] MEDS: PANTOPRAZOLE 40 MG/10 ML VIAL IVP SCH (09:09)
[2021-08-22] MEDS: DOXAZOSIN 4 MG TAB PO SCH (09:09)
--- NOTE | 2021-08-22 09:47 | P.DS ---
Providers Date of admission: 08/18/21 14:15 Expected date of discharge: 08/22/21 Attending physician: Orlando Parker Consults: 08/19/21 08:51 Consult Physician Routine Consulting Provider: Nikunj Walker Consult Reason/Comments: ileus, abd pain Do you want consulting provider notified?: Yes 08/21/21 08:02 Consult Physician Routine Consulting Provider: Kristin Ring Consult Reason/Comments: crohns Do you want consulting provider notified?: Already Contacted Primary care physician: [facility] Course: 60 years old male with past medical history significant for Crohn's disease with history of fistula presents to the emergency department with abdominal pain. Etiology felt to be related to ileus and early small bowel obstruction that was managed conservatively based on surgery recommendation and recommended to have patient's follow-up with his GI and general surgery appointment at [facility]. continued to be pain free for 12 hours prior to discharge was ambulating in the room without difficulty had multiple bowel movements during the hospital stay most recent last night and tolerating clear liquid diet without difficulties. Plan of discharge discussed with patient and his at the bedside and I explained that his current physical exam seems to be benign with bowel sounds and patient had bowel movement and he can be discharged on clear liquid diet to be increased as tolerated. Patient blood work revealed minimal elevation in ESR and CRP stated that he was started on Remicade with decent results and I advised patient to follow-up with GI at [facility] on scheduled appointment. Gen. surgery recommended patient to go to [facility] for future admissions and patient and in agreement. Patient was discharged in stable condition Patient Condition at Discharge: Serious Plan - Discharge Summary Discharge Rx Participant: No New Discharge Prescriptions: No Action Terazosin [Hytrin] 5 mg PO DAILY HYDROcodone/APAP 10-325MG [[place] 10-325] 1 tab PO QID Omeprazole 40 mg PO DAILY Tamsulosin HCl [Flomax] 0.4 mg PO DAILY EPINEPHrine (Auto Inject) [Epipen] 0.3 mg IM ONCE PRN #1 pen PRN Reason: Anaphylaxis Discharge Medication List Omeprazole 40 mg PO DAILY 11/04/20 [History] Terazosin [Hytrin] 5 mg PO DAILY 11/04/20 [History] HYDROcodone/APAP 10-325MG [[place] 10-325] 1 tab PO QID 11/13/20 [History] Tamsulosin HCl [Flomax] 0.4 mg PO DAILY 11/13/20 [History] EPINEPHrine (Auto Inject) [Epipen] 0.3 mg IM ONCE PRN #1 pen 11/17/20 [Rx] Follow up Appointment(s)/Referral(s): Alicia Vasquez MD [REFERRING] - 1 Week (As previously scheduled) Louie Lipscomb DO [Primary Care Provider] - 1 Week ( office closed at time of discharge. Please make own follow-up appt. ) Patient Instructions/Handouts: Bowel Obstruction (DC), Colon Stricture (DC) Discharge Disposition: HOME SELF-CARE
== END 2021-08-22 10:45 | disposition home or self-care (01) | DRG 388 ==
LOC: EC 10:20 → 5NMEDONC 14:15
PROVIDERS: ADMIT Internal Medicine Geriatric Medicine; ATTEND Internal Medicine Geriatric Medicine
DX: K56.51 Intestinal adhesions [bands], with partial obstruction (principal); N17.0 Acute kidney failure with tubular necrosis; K50.90 Crohn's disease, unspecified, without complications; K42.0 Umbilical hernia with obstruction, without gangrene; N32.1 Vesicointestinal fistula; Z20.822 Contact with and (suspected) exposure to COVID-19; E83.42 Hypomagnesemia; K21.9 Gastro-esophageal reflux disease without esophagitis; E86.0 Dehydration; N40.0 Benign prostatic hyperplasia without lower urinary tract symptoms; G47.30 Sleep apnea, unspecified; G89.4 Chronic pain syndrome; M19.90 Unspecified osteoarthritis, unspecified site; F17.210 Nicotine dependence, cigarettes, uncomplicated; Z90.49 Acquired absence of other specified parts of digestive tract; Z91.030 Bee allergy status; Z79.899 Other long term (current) drug therapy; Z79.891 Long term (current) use of opiate analgesic; Z87.442 Personal history of urinary calculi; Z87.19 Personal history of other diseases of the digestive system; Z82.61 Family history of arthritis; Z82.49 Family history of ischemic heart disease and other diseases of the circulatory system; Z80.52 Family history of malignant neoplasm of bladder; Z82.5 Family history of asthma and other chronic lower respiratory diseases; Z83.79 Family history of other diseases of the digestive system; Z63.4 Disappearance and death of family member; K52.9 Noninfective gastroenteritis and colitis, unspecified; G47.00 Insomnia, unspecified
CPT/HCPCS: 36415; 74019; 74177; 80048; 80053; 81001; 82150; 83605; 83690; 83735; 85025; 85027; 85610; 85652; 85730; 86140; 87502; 87635; 96361; 96374; 96375; 96376; 99285

== ENCOUNTER → 2021-08-26 | Outpatient (CLI) | payer MEDICARE ==
--- NOTE | 2021-08-26 18:51 | CONS ---
CONSULTATION DATE OF SERVICE: 08/26/2021 This 60-year-old gentleman has been evaluated in [facility] for possible obstructive sleep apnea-hypopnea syndrome. HISTORY OF PRESENT ILLNESS/SLEEP-WAKE EVALUATION: Patient's usual sleep schedule is from 11 or 12 midnight until 5:30 or 6 a.m. He does have problems with falling asleep, although no TV in bedroom. He usually sleeps on the side position. He snores. He wakes up from sleep 4 times with nocturia. He has a positive history of dry mouth during the night, restless leg symptoms and sweating. In the morning the patient wakes up tired, worried about his sleep, has episodes of irritability, depression and anxiety. Torrey Sleepiness Scale is increased at 11. No history of hypnagogic hallucinations, sleep paralysis or cataplexy. The patient takes one nap in late afternoon. PAST MEDICAL HISTORY: Positive for acid reflux, headaches, BPH, Crohn's disease, increased eye pressure. PAST SURGICAL HISTORY: Bowel resection. MEDICATIONS: 1. Terazosin 5 mg once a day. 2. Omeprazole 40 mg once a day. 3. Tamsulosin 0.4 mg once a day. 4. Hydrocodone 10/325 mg 4 times a day. FAMILY HISTORY: Positive for snoring, arthritis, acid reflux. SOCIAL HISTORY: Positive for smoking for about 30 years, about pack a day. Alcohol consumption occasional. REVIEW OF SYSTEMS: Multiple awakenings from sleep, difficulties initiating sleep, sleepiness during the day, snoring. No fevers. No double vision. No recent chest pain. No shortness of breath. No abdominal pain. No bleeding episodes. No blood in the urine. No seizure episodes. PHYSICAL EXAMINATION: GENERAL: Pleasant gentleman without distress. VITAL SIGNS: BP 138/90, HR 57, RR 16, height 5 feet 8 inches, weight 193.4, body mass index 29.3, temperature 97.7, oxygen saturation at room air 96%. HEENT: PERRLA, EOMI, evaluation of oropharynx showed tongue protrudes midline. Extremely low position of soft palate; Mallampati IV. NECK: Supple, no JVD. Thyroid is not palpable. Neck is wide; 17 inches in circumference. LUNGS: Clear to percussion and to auscultation. Good air exchange. No wheezing or rhonchi. HEART: S1, S2 regular. No murmurs, gallops, or rubs. ABDOMEN: Soft and nontender. Bowel sounds are present. No organomegaly appreciated. EXTREMITIES: No clubbing or cyanosis. ASSISTANT PROFESSOR OF BUSINESS: Awake, alert, and oriented X3. Cranial nerves 2 to 7 intact. There is no fasciculation or atrophy. noted. No focal deficits observed. IMPRESSION: 1. Snoring, multiple awakenings from sleep with nocturia, extremely low position of soft palate, Mallampati IV, wide neck, 17 inches in circumference, sleepiness, Torrey Sleepiness Scale increased at 11; obstructive sleep apnea-hypopnea syndrome. 2. Overweight, borderline to obesity; BMI 29.3. 3. Headaches. 4. Acid reflux. 5. Benign prostatic hypertrophy. 6. History of Crohn's disease, status post bowel resection. 7. Increased eye pressure. PLAN: 1. Polysomnography for evaluation of patient's breathing during sleep. 2. CPAP/BiPAP titration if sleep study confirms obstructive sleep apnea-hypopnea syndrome. 3. Preferable position during sleep on the side. 4. No driving if patient feels any sleepiness. 5. I will see patient for follow up visit to explain results of testing and following plan. Thank you very much for referring this patient for consultation. Sincerely, Orlin Mccall MD, PhD, FAASM Diplomat of [place] [employer] Sleep Medicine Board of [place] [employer] Heat Treater Apprentice of [facility] [place] MMALISTAIRL / MICAHN: [id number] /
== END | disposition home or self-care (01) ==
LOC: SLEEP 14:39
PROVIDERS: ATTEND Internal Medicine
DX: G47.33 Obstructive sleep apnea (adult) (pediatric) (principal); R06.83 Snoring; E66.9 Obesity, unspecified; Z68.29 Body mass index [BMI] 29.0-29.9, adult; R51.9 Headache, unspecified; K21.9 Gastro-esophageal reflux disease without esophagitis; N40.0 Benign prostatic hyperplasia without lower urinary tract symptoms; Z87.19 Personal history of other diseases of the digestive system
CPT/HCPCS: 99211

== ENCOUNTER → 2022-10-11 | Outpatient (CLI) | payer MEDICARE ==
--- NOTE | 2022-10-11 15:10 | XR ---
EXAMINATION TYPE: XR abdomen 1V DATE OF EXAM: 10/11/2022 COMPARISON: NONE HISTORY: Pain TECHNIQUE: One view abdominal series FINDINGS: The osseous structures are intact. The bowel gas pattern is nonspecific with multiple air fluid leve ls. Lung bases are clear. Calcifications in the pelvis appear likely vascular. Arthropathy of the hi p. Scoliosis and degenerative change of the spine. IMPRESSION: 1. Nonspecific abdomen. Multiple air-fluid levels. Correlate for ileus or enteritis. Obstruction not excluded. A [place] level critical message alert has been initiated for Louie Lipscomb DO via the [employer] Critical Results System on 10/11/2022 3:07 PM. This message alert has been sent to Louie santiago DO via the preferences provided by the clinician for the receipt of Radiology Critical Findings. Message ID [id number].
== END | disposition home or self-care (01) ==
LOC: RADXRMAIN 14:49
PROVIDERS: ATTEND Family Medicine
DX: N20.1 Calculus of ureter (principal)
CPT/HCPCS: 74018

== ENCOUNTER → 2022-12-08 | Outpatient (CLI) | payer MEDICARE ==
--- NOTE | 2022-12-08 15:03 | XR ---
EXAMINATION TYPE: XR Hip Bilateral Complete DATE OF EXAM: 12/08/2022 2:43 PM INDICATION: Patient age:Male; 62 years old; Reason for study: BL HIP XRAY; [facility]. COMPARISON: CT abdomen pelvis 08/18/2021 TECHNIQUE: Both hips were examined in the frontal and lateral projections . FINDINGS: No evidence of any acute osseous pathology, joint dislocation, or soft tissue swelling. Mil d bilateral medial joint space narrowing and acetabular sclerosis of both hips. Pelvic phleboliths. IMPRESSION: 1. No acute osseous pathology. 2. Mild osteoarthritic changes of both hips.
[2022-12-08 21:54] LABS: Hepatitis B Surface Antigen Nonreactive
== END | disposition home or self-care (01) ==
LOC: LABWHC1 14:00
PROVIDERS: ATTEND Internal Medicine Gastroenterology
DX: M16.0 Bilateral primary osteoarthritis of hip (principal); K50.012 Crohn's disease of small intestine with intestinal obstruction
CPT/HCPCS: 36415; 73521; 86140; 86480; 86704; 87340

== ENCOUNTER → 2023-03-30 | Outpatient (CLI) | payer MEDICARE ==
--- NOTE | 2023-03-30 12:38 | XR ---
EXAMINATION TYPE: XR knee complete bilateral DATE OF EXAM: 03/30/2023 11:05 AM CLINICAL INDICATION:Male, 62 years old with history of M25.559 BILAT HIP AND KNEE PAIN M25.569; [facility] COMPARISON: 11/04/2020. TECHNIQUE: XR knee complete bilateral; examined in Frontal, lateral and oblique projections. FINDINGS: No evidence of any acute osseous pathology, soft tissue swelling, or joint effusion is no gregory. Tricompartmental osteophyte formation involving the femoral condyles, tibial plateau and patella mat ter bilaterally. Mild joint space narrowing bilaterally most pronounced in the medial knees bilateral ly.. IMPRESSION: 1. No acute osseous pathology. 2. Mild to moderate tricompartmental osteoarthritic changes.
--- NOTE | 2023-03-30 12:52 | XR ---
EXAMINATION TYPE: XR Hip Bilateral Complete DATE OF EXAM: 03/30/2023 11:06 AM CLINICAL INDICATION:Male, 62 years old with history of M25.559 BILAT HIP AND KNEE PAIN M25.569; [facility] COMPARISON: 12/08/2022. TECHNIQUE: XR Hip Bilateral Complete; hip was examined in the frontal and lateral projections a FINDINGS: No evidence for acute process, joint dislocation or significant soft tissue swelling. Osteo phyte formation of the superior acetabulum of the hip. IMPRESSION: 1. No evidence for acute process. 2. Mild to moderate hip osteoarthrosis. Similar prior.
== END | disposition home or self-care (01) ==
LOC: RADXRMAIN 10:35
PROVIDERS: ATTEND Family Medicine
DX: M17.0 Bilateral primary osteoarthritis of knee (principal); M16.0 Bilateral primary osteoarthritis of hip
CPT/HCPCS: 73521

== ENCOUNTER → 2023-09-02 | Outpatient (CLI) | payer MEDICARE | END | disposition home or self-care (01) | LOC: RADXRMAIN 08:07 | PROVIDERS: ATTEND Family Medicine | DX: R22.2 Localized swelling, mass and lump, trunk (principal) ==

== ENCOUNTER → 2023-09-07 | Outpatient (CLI) | payer MEDICARE ==
--- NOTE | 2023-09-07 09:52 | US ---
EXAMINATION TYPE: US abdomen limited DATE OF EXAM: 09/07/2023 COMPARISON: CT CLINICAL INDICATION: Male, 62 years old with history of R19.01 RIGHT UPPER QUADRANT ABDOMINAL SWELLIN G, MA; Area of outpouching mid abdomen above umbilicus right above scar TECHNIQUE: Grayscale imaging and area of concern. FINDINGS: Possible hernia within area of concern, midline abdomen, superior to umbilicus, adjacent t o scar IMPRESSION: Suspected hernia in the area of concern which is demonstrated on 08/18/2021 CT.
== END | disposition home or self-care (01) ==
LOC: RADUSWWP 08:25
PROVIDERS: ATTEND Family Medicine
DX: R19.01 Right upper quadrant abdominal swelling, mass and lump (principal)
CPT/HCPCS: 76705

== ENCOUNTER 2024-06-03 11:34 | Inpatient (IN) | payer MEDICARE ==
[2024-06-03] MEDS: SODIUM CHLORIDE 0.9% 1,000 ML IV STA ×3 (12:02→14:37)
--- NOTE | 2024-06-03 12:14 | ED ---
Extremity Problem HPI - General Chief complaint: Nausea/Vomiting/Diarrhea Stated complaint: Dehydration Time Seen by Provider: 06/03/24 11:42 Source: patient, EMS, RN notes reviewed Mode of arrival: EMS Limitations: no limitations - History of Present Illness Initial comments: This is a 63-year-old male who presents to the emergency department for cramping in his extremities. States that over the last couple of days he has had cramping in his bilateral lower extremities as well as left upper extremity. He did have nausea and vomiting a couple of days ago. Unsure if he may be dehydrated. Denies ever having this happen in the past. States that when he moves a certain way it seems to exacerbate his symptoms. He has not noticed any redness, swelling, or other skin changes to his extremities. - Related Data Home Medications Medication Instructions Recorded Confirmed Omeprazole 40 mg PO DAILY 11/04/20 06/03/24 Terazosin [Hytrin] 5 mg PO BID 11/04/20 06/03/24 HYDROcodone/APAP 10-325MG [[place] 1 tab PO QID PRN 11/13/20 06/03/24 10-325] Cholecalciferol (Vitamin D3) 1,250 mcg PO MO 06/03/24 06/03/24 [Vitamin D3 (1250 Mcg = 50,000 Iu)] Ustekinumab [Stelara] 45 mg SQ QMONTHLY 06/03/24 06/03/24 Allergies Allergy/AdvReac Type Severity Reaction Status Date / Time bee venom protein (honey bee) Allergy Anaphylaxis Verified 06/03/24 13:27 Review of Systems ROS Statement: Those systems with pertinent positive or pertinent negative responses have been documented in the HPI. ROS Other: All systems not noted in ROS Statement are negative. Past Medical History Past Medical History: GERD/Reflux, Osteoarthritis (OA), Sleep Apnea/CPAP/BIPAP Additional Past Medical History / Comment(s): Chron's diagnosed at age 16 yrs, recurrent colitis, umbilical hernia, [place]/no device yet, nephrolithiasis/passed on his own, kidney infection, BPH, chronic lower back pain/DDD, insomnia, anaphyllactic reaction to bee stings. History of Any Multi-Drug Resistant Organisms: None Reported Past Surgical History: Appendectomy, Bowel Resection, Hernia Repair Additional Past Surgical History / Comment(s): multiple colonoscopies, 2 bowel resections age 17 and 29, multiple I&Ds d/t chrons causing fistulas, R knee arthroscopy, L foot injury/hardware/some hardware has been removed, pain procedures. Past Anesthesia/Blood Transfusion Reactions: No Reported Reaction Past Psychological History: No Psychological Hx Reported Smoking Status: Current every day smoker Past Alcohol Use History: Occasional Past Drug Use History: None Reported - Past Family History Father Family Medical History: Cancer, COPD Additional Family Medical History / Comment(s): bladder cancer, ddd Mother Family Medical History: COPD, Hyperlipidemia, Hypertension General Exam Limitations: no limitations General appearance: alert, in no apparent distress Head exam: Present: atraumatic, normocephalic, normal inspection Respiratory exam: Present: normal lung sounds bilaterally. Absent: respiratory distress, wheezes, rales, rhonchi, stridor Cardiovascular Exam: Present: regular rate, normal rhythm Extremities exam: Present: other (No erythema, swelling, warmth, or tenderness to the bilateral upper or lower extremities. Full range of motion. 2+ DP and PT pulses bilaterally. 2+ radial pulses bilaterally.) Neurological exam: Present: alert, oriented X3, CN II-XII intact Psychiatric exam: Present: normal affect, normal mood Skin exam: Present: warm, dry, intact, normal color. Absent: rash Course Vital Signs 06/03/24 06/03/24 06/03/24 11:35 13:58 15:53 Temperature 97.8 F Pulse Rate 62 60 64 Respiratory 16 16 16 Rate Blood Pressure 93/74 94/56 105/45 O2 Sat by Pulse 97 100 100 Oximetry Medical Decision Making - Medical Decision Making This is a 63-year-old male who presents to the emergency department for cramping in his extremities. Was pt. sent in by a medical professional or institution? @ -No Did you speak to anyone other than the patient for history? @ -No Did you review nursing and triage notes? @ -Yes, and I agree, it is accurate with regards to the patient's symptoms. Were old charts reviewed? @ -No Differential Diagnosis? @ -Differential Musculoskeletal Muscular strain, contusion, ligament sprain, fracture, arthritis, septic arthritis, bursitis, cellulitis, muscle spasm, nerve compression, DVT, arterial occlusion, herpes zoster, electrolyte abnormality, tumor.... This is not meant to be in all inclusive list EKG interpreted by me (3pts min.)? @ -EKG interpreted by me demonstrating the following: Sinus rhythm. Ventricular rate 64 bpm, MA interval 203 ms, QRS duration 97 ms, QTc 375 ms. X-rays interpreted by me (1pt min.)? @ -Not obtained CT interpreted by me (1pt min.)? @ -Not obtained U/S interpreted by me (1pt. min.)? @ -Not obtained What testing was considered but not performed? (CT, X-rays, U/S, labs)? Why? @ -None What meds were considered but not given? Why? @ -None Did you discuss the management of the patient with other professionals? @ -Yes, Dr. Espana, who accepts the patient for admission Did you reconcile home meds? @ -Yes Was smoking cessation discussed for >3mins.? @ -No Was critical care preformed (if so, how long)? @ -No Were there social determinants of health that impacted care today? How? (Homelessness, low income, unemployed, alcoholism, drug addiction, transportation, low edu. Level, literacy, decrease access to med. care, fdc, rehab)? @ -No Was there de-escalation of care discussed even if they declined? (Discuss DNR or withdrawal of care, Hospice)? @ -No What co-morbidities impacted this encounter? (DM, HTN, Smoking, COPD, CAD, Cancer, CVA, Hep., AIDS, mental health diagnosis, sleep apnea, morbid obesity)? @ -Crohn's disease Was patient admitted / discharged? @ -Admitted. Lab work demonstrates hyponatremia with a sodium of 128 and magnesium of 1.1. Patient also found to be in acute renal failure with a cr eatinine 3.99 and eGFR of 15. COVID, influenza, and RSV testing negative. Urinalysis negative for signs of infection. 2 L of IV fluids administered along with 4 g of magnesium sulfate and 400 mg of magnesium oxide. Patient admitted to medicine for the acute renal failure with hyponatremia and hypomagnesemia. Consult placed for nephrology. Case discussed with ED attending Dr. Granda. Undiagnosed new problem with uncertain prognosis? @ -None Drug Therapy requiring intensive monitoring for toxicity (Heparin, Nitro, Insulin, Cardizem)? @ -None Were any procedures done? @ -None Diagnosis/symptom? @ -Acute renal failure, hypomagnesemia, hyponatremia Acute, or Chronic, or Acute on Chronic? @ -Acute Uncomplicated (without systemic symptoms) or Complicated (systemic symptoms)? @ -Complicated Side effects of treatment? @ -None Exacerbation, Progression, or Severe Exacerbation] @ -Not applicable Poses a threat to life or bodily function? @ -Yes, can lead to - Lab Data Result diagrams: 06/03/24 12:13 06/03/24 12:13 Lab Results 06/03/24 06/03/24 06/03/24 Range/Units 12:13 12:13 12:13 WBC 8.2 (3.8-10.6) k/uL RBC 5.04 (4.30-5.90) m/uL Hgb 13.9 (13.0-17.5) gm/dL Hct 42.8 (39.0-53.0) % MCV 85.0 (80.0-100.0) fL MCH 27.6 (25.0-35.0) pg MCHC 32.4 (31.0-37.0) g/dL RDW 16.8 H (11.5-15.5) % Plt Count 439 (150-450) k/uL MPV 7.0 Neutrophils % 62 % Lymphocytes % 25 % Monocytes % 9 % Eosinophils % 1 % Basophils % 0 % Neutrophils # 5.1 (1.3-7.7) k/uL Lymphocytes # 2.0 (1.0-4.8) k/uL Monocytes # 0.8 (0-1.0) k/uL Eosinophils # 0.1 (0-0.7) k/uL Basophils # 0.0 (0-0.2) k/uL Anisocytosis Slight Sodium 128 L (137-145) mmol/L Potassium 4.6 (3.5-5.1) mmol/L Chloride 101 (98-107) mmol/L Carbon Dioxide 10 L (22-30) mmol/L Anion Gap 17 mmol/L BUN 86 H (9-20) mg/dL Creatinine 3.99 H (0.66-1.25) mg/dL Est GFR (CKD-EPI)AfAm 18 (>60 ml/min/1.73 sqM) Est GFR (CKD-EPI)NonAf 15 (>60 ml/min/1.73 sqM) Glucose 107 H (74-99) mg/dL Plasma Lactic Acid Marcello 1.6 (0.7-2.0) mmol/L Calcium 9.1 (8.4-10.2) mg/dL Phosphorus (2.5-4.5) mg/dL Magnesium 1.1 L (1.6-2.3) mg/dL Total Bilirubin 0.7 (0.2-1.3) mg/dL AST 53 (17-59) U/L ALT 107 H (4-49) U/L Alkaline Phosphatase 188 H (38-126) U/L Creatine Kinase 331 H (55-170) U/L Total Protein 8.2 (6.3-8.2) g/dL Albumin 4.5 (3.5-5.0) g/dL Influenza Type A (PCR) (Not Detectd) Influenza Type B (PCR) (Not Detectd) RSV (PCR) (Not Detectd) SARS-CoV-2 (PCR) (Not Detectd) 06/03/24 06/03/24 Range/Units 12:13 12:13 WBC (3.8-10.6) k/uL RBC (4.30-5.90) m/uL Hgb (13.0-17.5) gm/dL Hct (39.0-53.0) % MCV (80.0-100.0) fL MCH (25.0-35.0) pg MCHC (31.0-37.0) g/dL RDW (11.5-15.5) % Plt Count (150-450) k/uL MPV Neutrophils % % Lymphocytes % % Monocytes % % Eosinophils % % Basophils % % Neutrophils # (1.3-7.7) k/uL Lymphocytes # (1.0-4.8) k/uL Monocytes # (0-1.0) k/uL Eosinophils # (0-0.7) k/uL Basophils # (0-0.2) k/uL Anisocytosis Sodium (137-145) mmol/L Potassium (3.5-5.1) mmol/L Chloride (98-107) mmol/L Carbon Dioxide (22-30) mmol/L Anion Gap mmol/L BUN (9-20) mg/dL Creatinine (0.66-1.25) mg/dL Est GFR (CKD-EPI)AfAm (>60 ml/min/1.73 sqM) Est GFR (CKD-EPI)NonAf (>60 ml/min/1.73 sqM) Glucose (74-99) mg/dL Plasma Lactic Acid Marcello (0.7-2.0) mmol/L Calcium (8.4-10.2) mg/dL Phosphorus 6.8 H (2.5-4.5) mg/dL Magnesium (1.6-2.3) mg/dL Total Bilirubin (0.2-1.3) mg/dL AST (17-59) U/L ALT (4-49) U/L Alkaline Phosphatase (38-126) U/L Creatine Kinase (55-170) U/L Total Protein (6.3-8.2) g/dL Albumin (3.5-5.0) g/dL Influenza Type A (PCR) Not Detected (Not Detectd) Influenza Type B (PCR) Not Detected (Not Detectd) RSV (PCR) Not Detected (Not Detectd) SARS-CoV-2 (PCR) Not Detected (Not Detectd) Disposition Clinical Impression: Acute renal failure, Hyponatremia, Hypomagnesemia Disposition: ADMITTED IP TO THIS HOSP
[2024-06-03 12:26] LABS: Anisocytosis Slight; Basophils % (A) 0 %; Eosinophils # (A) 0.1 k/uL (0-0.7); Eosinophils % (A) 1 %; HCT 42.8 % (39.0-53.0); HGB 13.9 gm/dL (13.0-17.5); Lymphocytes % (A) 25 %; MCH 27.6 pg (25.0-35.0); MCHC 32.4 g/dL (31.0-37.0); Monocytes # (A) 0.8 k/uL (0-1.0); Monocytes % (A) 9 %; Neutrophils # (A) 5.1 k/uL (1.3-7.7); Neutrophils % (A) 62 %; Platelet Count 439 k/uL (150-450); RBC 5.04 m/uL (4.30-5.90); RDW 16.8 % (11.5-15.5); WBC 8.2 k/uL (3.8-10.6)
[2024-06-03 12:37] LABS: ALT 107 U/L (4-49); AST 53 U/L (17-59); African American GFR (CKD) 18 (>60 ml/min/1.73 sqM); Albumin 4.5 g/dL (3.5-5.0); Alkaline Phosphatase 188 U/L (38-126); Anion Gap 17 mmol/L; Blood Urea Nitrogen 86 mg/dL (9-20); Calcium 9.1 mg/dL (8.4-10.2); Carbon Dioxide 10 mmol/L (22-30); Chloride 101 mmol/L (98-107); Creatine Kinase 331 U/L (55-170); Glucose 107 mg/dL (74-99); Magnesium 1.1 mg/dL (1.6-2.3); Non-African American GFR(CKD) 15 (>60 ml/min/1.73 sqM); Potassium 4.6 mmol/L (3.5-5.1); Sodium 128 mmol/L (137-145); Total Bilirubin 0.7 mg/dL (0.2-1.3); Total Protein 8.2 g/dL (6.3-8.2)
[2024-06-03 13:01] LABS: Influenza A Not Detected (Not Detectd); Influenza B Not Detected (Not Detectd); RSV Not Detected (Not Detectd)
[2024-06-03] MEDS: MAGNESIUM OXIDE 400 MG TAB PO STA (13:10)
[2024-06-03] MEDS: MAGNESIUM SULFATE-D5W PMX 1 GM in DEXTROSE/WATER 1 100ML.BAG IVPB SCH (13:11)
[2024-06-03] MEDS ORDERED: NALOXONE 0.4 MG/ML 1 ML VIAL IV PRN (13:18)
[2024-06-03] MEDS ORDERED: ACETAMINOPHEN TAB 325 MG TAB PO PRN (13:18)
[2024-06-03] MEDS ORDERED: ONDANSETRON 4 MG/2 ML VIAL IVP PRN (13:18)
[2024-06-03] MEDS ORDERED: HYDROcodone/APAP 5-325MG 1 EACH TAB PO PRN (13:18)
[2024-06-03 14:00] LABS: Appearance,Urine Clear (Clear); Bilirubin,Urine Negative (Negative); Blood,Urine Negative (Negative); Color,Urine Yellow; Glucose,Urine (UA) Negative (Negative); Ketones,Urine Negative (Negative); PH, Urine 5.5 (5.0-8.0); Protein,Urine Trace (Negative); Specific Gravity,Urine 1.014 (1.001-1.035)
[2024-06-03] MEDS ORDERED: USTEKINUMAB 45 MG/0.5 ML SQ SCH (14:00)
[2024-06-03 14:01] LABS: Leukocyte Esterase,Urine Negative (Negative); Nitrite,Urine Negative (Negative); Urobilinogen,Urine <2.0 mg/dL (<2.0)
--- NOTE | 2024-06-03 15:27 | P.HPIM ---
History of Present Illness H&P Date: 06/03/24 Chief Complaint: Nausea/vomiting/diarrhea 63-year-old male, history of gastroesophageal reflux disease, BPH, osteoarthritis, who presents to the emergency department for cramping in his extremities. States that over the last couple of days he has had cramping in his bilateral lower extremities as well as left upper extremity. He did have nausea and vomiting a couple of days ago. Unsure if he may be dehydrated. Denies ever having this happen in the past. States that when he moves a certain way it seems to exacerbate his symptoms. He has not noticed any redness, sw elling, or other skin changes to his extremities. Blood work completed in ED reveals a WBC of 8.2, hemoglobin of 13.9 and platelet count of 439, sodium 128, potassium 4.6, CO2 of 10, BUNs/creatinine of 86/3.99, blood glucose of 107, phosphorus elevated at 6.8, magnesium down to 1.1, ALT elevated at 107, with creatinine kinase up to 331 --Respiratory viral screen is negative for influenza A, B, RSV and COVID-19 PCR UA is unremarkable Review of Systems REVIEW OF SYSTEMS: CONSTITUTIONAL: No fever, no malaise, no fatigue. HEENT: No recent visual problems or hearing problems. Denied any sore throat. CARDIOVASCULAR: No chest pain, orthopnea, PND, no palpitations, no syncope. PULMONARY: No shortness of breath, no cough, no hemoptysis. GASTROINTESTINAL: No diarrhea, no nausea, no vomiting, no abdominal pain. NEUROLOGICAL: No headaches, no weakness, no numbness. HEMATOLOGICAL: Denies any bleeding or petechiae. GENITOURINARY: Denies any burning micturition, frequency, or urgency. MUSCULOSKELETAL/RHEUMATOLOGICAL: Denies any joint pain, swelling, or any muscle pain. ENDOCRINE: Denies any polyuria or polydipsia. The rest of the 14-point review of systems is negative. Past Medical History Past Medical History: GERD/Reflux, Osteoarthritis (OA), Sleep Apnea/CPAP/BIPAP Additional Past Medical History / Comment(s): Chron's diagnosed at age 16 yrs, recurrent colitis, umbilical hernia, [place]/no device yet, nephrolithiasis/passed on his own, kidney infection, BPH, chronic lower back pain/DDD, insomnia, anaphyllactic reaction to bee stings. History of Any Multi-Drug Resistant Organisms: None Reported Past Surgical History: Appendectomy, Bowel Resection, Hernia Repair Additional Past Surgical History / Comment(s): multiple colonoscopies, 2 bowel resections age 17 and 29, multiple I&Ds d/t chrons causing fistulas, R knee arthroscopy, L foot injury/hardware/some hardware has been removed, pain procedures. Past Anesthesia/Blood Transfusion Reactions: No Reported Reaction Past Psychological History: No Psychological Hx Reported Smoking Status: Current every day smoker Past Alcohol Use History: Occasional Past Drug Use History: None Reported - Past Family History Father Family Medical History: Cancer, COPD Additional Family Medical History / Comment(s): bladder cancer, ddd Mother Family Medical History: COPD, Hyperlipidemia, Hypertension Medications and Allergies Home Medications Medication Instructions Recorded Confirmed Type Omeprazole 40 mg PO DAILY 11/04/20 06/03/24 History Terazosin [Hytrin] 5 mg PO BID 11/04/20 06/03/24 History HYDROcodone/APAP 10-325MG [[place] 1 tab PO QID PRN 11/13/20 06/03/24 History 10-325] Cholecalciferol (Vitamin D3) 1,250 mcg PO MO 06/03/24 06/03/24 History [Vitamin D3 (1250 Mcg = 50,000 Iu)] Ustekinumab [Stelara] 45 mg SQ QMONTHLY 06/03/24 06/03/24 History Allergies Allergy/AdvReac Type Severity Reaction Status Date / Time bee venom protein (honey bee) Allergy Anaphylaxis Verified 06/03/24 13:27 Physical Exam Vitals: Vital Signs Temp Pulse Resp BP Pulse Ox 06/03/24 13:58 60 16 94/56 100 06/03/24 11:35 97.8 F 62 16 93/74 97 Intake and Output 06/03/24 06/03/24 06/03/24 06:59 14:59 22:59 Other: Weight 77.111 kg General appearance: alert, in no apparent distress Head exam: Present: atraumatic, normocephalic, normal inspection Respiratory exam: Present: normal lung sounds bilaterally. Absent: respiratory distress, wheezes, rales, rhonchi, stridor Cardiovascular Exam: Present: regular rate, normal rhythm Extremities exam: Present: other (No erythema, swelling, warmth, or tenderness to the bilateral upper or lower extremities. Full range of motion. 2+ DP and PT pulses bilaterally. 2+ radial pulses bilaterally.) Neurological exam: Present: alert, oriented X3, CN II-XII intact Psychiatric exam: Present: normal affect, normal mood Skin exam: Present: warm, dry, intact, normal color. Absent: rash Results CBC & Chem 7: 06/03/24 12:13 06/03/24 12:13 Labs: Abnormal Lab Results - Last 24 Hours (Table) 06/03/24 06/03/24 06/03/24 Range/Units 12:13 12:13 12:13 RDW 16.8 H (11.5-15.5) % Sodium 128 L (137-145) mmol/L Carbon Dioxide 10 L (22-30) mmol/L BUN 86 H (9-20) mg/dL Creatinine 3.99 H (0.66-1.25) mg/dL Glucose 107 H (74-99) mg/dL Phosphorus 6.8 H (2.5-4.5) mg/dL Magnesium 1.1 L (1.6-2.3) mg/dL ALT 107 H (4-49) U/L Alkaline Phosphatase 188 H (38-126) U/L Creatine Kinase 331 H (55-170) U/L Urine Protein (Negative) 06/03/24 Range/Units 13:48 RDW (11.5-15.5) % Sodium (137-145) mmol/L Carbon Dioxide (22-30) mmol/L BUN (9-20) mg/dL Creatinine (0.66-1.25) mg/dL Glucose (74-99) mg/dL Phosphorus (2.5-4.5) mg/dL Magnesium (1.6-2.3) mg/dL ALT (4-49) U/L Alkaline Phosphatase (38-126) U/L Creatine Kinase (55-170) U/L Urine Protein Trace H (Negative) Assessment and Plan Assessment: 1. Acute renal failure; likely related to vomiting and diarrhea/dehydration; likely ATN related to vomiting and diarrhea -Patient has been placed on normal saline at rate of 130 cc an hour; we will monitor strict NEYMAR's, daily weights, renal function electrolytes; avoid nephrotoxins and hypotension -Recommend renal ultrasound if renal function does not improve with IV fluids -Nephrology is consulted 2. Hyponatremia; patient received IV fluid bolus in form of normal saline and has been placed on maintenance IV fluids, normal saline at rate of 130 cc an hour -Will monitor electrolytes and adjust IV fluids accordingly 3. Critical hypomagnesemia; patient received 4 g of magnesium sulfate in ED; we will monitor electrolytes closely and make further recommendations 4. Hypertension; Hytrin 5 mg twice daily 5. Vitamin D deficiency; continue with home supplement 6. Gastroesophageal reflux disease; omeprazole 40 mg daily 7. Osteoarthritis; [place] 10 mg 1 tablet 4 times daily as needed DVT prophylaxis; SCDs/subcu heparin CODE STATUS; full code
[2024-06-03] MEDS: guaiFENesin SYRUP 100MG/5ML 200 MG/10 ML CUP PO PRN (19:43)
[2024-06-03] MEDS: HEPARIN SODIUM,PORCINE 5,000 UNIT/ML 1 ML VIAL SQ SCH (20:22)
[2024-06-03] MEDS: DOXAZOSIN 4 MG TAB PO SCH (20:35)
[2024-06-03] MEDS: HYDROcodone/APAP 10-325MG 1 EACH TAB PO PRN (21:34)
[2024-06-04] MEDS: PANTOPRAZOLE 40 MG TABLET PO SCH (08:39)
[2024-06-04] MEDS: MORPHINE SULFATE 4 MG/ML SYRINGE IV PRN (08:47)
[2024-06-04] MEDS ORDERED: PANTOPRAZOLE 40 MG/10 ML VIAL IV SCH (09:00)
[2024-06-04] MEDS: ERGOCALCIFEROL 1,250 MCG (50,000 IU) CAPSULE PO SCH (10:02)
[2024-06-04 10:54] LABS: BUN/Creat Ratio 31.68 Ratio (12.00-20.00); Blood Urea Nitrogen 60.2 mg/dL (9.0-27.0); Calcium 9.1 mg/dL (8.7-10.3); Carbon Dioxide 16.1 mmol/L (21.6-31.8); Chloride 105 mmol/L (96-109); Glucose 102 mg/dL (70-110); Magnesium 2.2 mg/dL (1.5-2.4); Potassium 4.8 mmol/L (3.5-5.5); Sodium 134 mmol/L (135-145)
[2024-06-04 10:55] LABS: Basophils # (A) 0.02 X 10*3/uL (0.00-0.10); Basophils % (A) 0.3 %; Eosinophils # (A) 0.09 X 10*3/uL (0.04-0.35); Eosinophils % (A) 1.3 %; HCT 39.5 % (39.6-50.0); HGB 13.2 g/dL (13.0-17.0); Lymphocytes # (A) 2.18 X 10*3/uL (0.90-5.00); Lymphocytes % (A) 30.3 %; MCH 27.6 pg (27.0-32.0); MCHC 33.4 g/dL (32.0-37.0); MCV 82.6 FL (80.0-97.0); Mean Platelet Volume 9.3 FL (9.5-12.2); Monocytes # (A) 0.99 X 10*3/uL (0.20-1.00); Monocytes % (A) 13.8 %; NRBC Per 100 WBC 0 X 10*3/uL (0.00-0.01); Neutrophils # (A) 3.81 X 10*3/uL (1.80-7.70); Neutrophils % (A) 52.9 %; Platelet Count 393 X 10*3/uL (140-440); RBC 4.78 X 10*6/uL (4.40-5.60); RDW 16.1 % (11.5-14.5); WBC 7.19 X 10*3/uL (4.50-10.00)
[2024-06-04] MEDS: DEXTROSE 5% IN WATER 1,000 ML with SODIUM BICARB (1 MEQ/ML) 150 ML IV SCH (11:00)
--- NOTE | 2024-06-04 11:10 | P.NPCON ---
History of Present Illness - Reason for Consult Consult date: 06/04/24 - History of Present Illness Reason for consult: CALIN, hyponatremia, hypomagnesemia 63-year-old man with PMH of chronic Crohn's disease s/p most recent ileostomy procedure in 02/2024 with previous ostomy and reversal surgery, GERD, BPH and osteoarthritis who presented to the emergency department with worsening cramping in his lower extremities. He states he began noticing the discomfort on Tuesday. He was out of town and felt as though he was unable to keep himself adequately hydrated and notes feeling an increasingly worsening cramping like sensation in his bilateral lower extremities. The pain was located in the a nterior portion of his lower legs and he noted some worsening cramping like sensation in his bilateral feet as well. On Tuesday he additionally notes 2 episodes of vomiting following a meal he had had, however no vomiting since that time. He denies any difficulties urinating, however amount may be less than usual. He denies any history of malignancy. Denies any history of NSAID use. He endorses having His blood pressure was low, with his systolic being on the lower end of 90's. EKG showed a rate of 64, normal sinus rhythm. Serum creatinine on arrival was 3.99 is 1.9 today. Most recent previous creatinine was 1.2 on 05/06/24. Serum sodium on arrival 128 is 134 today Serum bicarbonate on arrival 10 is 16.1 today Serum magnesium on arrival 1.1 is 2.2 today Past Medical History Past Medical History: GERD/Reflux, Osteoarthritis (OA), Sleep Apnea/CPAP/BIPAP Additional Past Medical History / Comment(s): Chron's diagnosed at age 16 yrs, recurrent colitis, colostomy, umbilical hernia, [place]/no device yet, nephrolithiasis/passed on his own, kidney infection, BPH, chronic lower back pain/DDD, insomnia, anaphyllactic reaction to bee stings. History of Any Multi-Drug Resistant Organisms: None Reported Past Surgical History: Appendectomy, Bowel Resection, Hernia Repair Additional Past Surgical History / Comment(s): multiple colonoscopies, 2 bowel resections age 17 and 29, multiple I&Ds d/t chrons causing fistulas, R knee arthroscopy, L foot injury/hardware/some hardware has been removed, pain procedures. Past Anesthesia/Blood Transfusion Reactions: No Reported Reaction Past Psychological History: No Psychological Hx Reported Additional Psychological History / Comment(s): Pt resides with his spouse. He is independent. Smoking Status: Current every day smoker Past Alcohol Use History: Occasional Additional Past Alcohol Use History / Comment(s): Pt started smoking at age 26 smokes 1 ppd, drinks alcohol a coupled every other week. Past Drug Use History: None Reported - Past Family History Father Family Medical History: Cancer, COPD Additional Family Medical History / Comment(s): bladder cancer, ddd Mother Family Medical History: COPD, Hyperlipidemia, Hypertension Medications and Allergies Home Medications Medication Instructions Recorded Confirmed Type Omeprazole 40 mg PO DAILY 11/04/20 06/03/24 History Terazosin [Hytrin] 5 mg PO BID 11/04/20 06/03/24 History HYDROcodone/APAP 10-325MG [[place] 1 tab PO QID PRN 11/13/20 06/03/24 History 10-325] Cholecalciferol (Vitamin D3) 1,250 mcg PO MO 06/03/24 06/03/24 History [Vitamin D3 (1250 Mcg = 50,000 Iu)] Ustekinumab [Stelara] 45 mg SQ QMONTHLY 06/03/24 06/03/24 History Allergies Allergy/AdvReac Type Severity Reaction Status Date / Time bee venom protein (honey bee) Allergy Anaphylaxis Verified 06/03/24 13:27 Physical Exam Vitals: Vital Signs Temp Pulse Pulse Resp BP BP Pulse Ox 06/04/24 08:35 98.9 F 57 L 16 108/67 99 06/04/24 00:49 97.8 F 60 16 107/71 99 06/03/24 22:43 98.1 F 06/03/24 21:50 65 16 93/56 97 06/03/24 15:53 64 16 105/45 100 06/03/24 13:58 60 16 94/56 100 06/03/24 11:35 97.8 F 62 16 93/74 97 Intake and Output 06/03/24 06/04/24 06/04/24 22:59 06:59 14:59 Intake Total 1000 Balance 1000 Intake: Intake, IV Titration 1000 Amount Sodium Chloride 0.9% 1, 1000 000 ml @ 130 mls/hr IV . [id number] STA Rx#:[id number] Other: # Voids 4 # Bowel Movements 1 Weight 77.111 kg Patient is awake, comfortable, no acute distress. Heart: S1 and S2 heard Lungs: Bilateral breath sounds are heard Abdomen: Ostomy bag present. Ventral hernia present. Lower extremities: No edema MACHINE DRILLER: grossly intact Results - Lab Results Most recent lab results Calcium 9.1 mg/dL (8.4-10.2) 06/03/24 12:13 Phosphorus 6.8 mg/dL (2.5-4.5) H 06/03/24 12:13 Magnesium 1.1 mg/dL (1.6-2.3) L 06/03/24 12:13 06/04/24 07:40 06/05/24 06:40 Assessment and Plan Assessment: #CALIN secondary to ATN secondary to hypotension and volume depletion and increased fluid loss in the setting of high output ileostomy - improving s/p NS 130 cc/h, continuing with bicarb in D5W at 150 cc/h; UA benign with trace protein #Hypovolemic hyponatremia - improving with IV hydration #Anion gap metabolic acidosis secondary to acute renal failure - improving #Hypomagnesemia secondary to GI fluid loss and chronic PPI use - resolved #Chronic Crohn's disease s/p ileostomy w/plans for reversal down the road; history of previous surgeries with infections Plan: -Had been receiving normal saline 130 cc/h, discontinued -Started on sodium bicarb in D5W at 150 cc/h -Received 400 mg magnesium oxide once while in the emergency department, magnesium this morning 2.2 -Recheck labs in a.m. Pt is seen and examined. Agree with resident's findings, assessment and plan.
--- NOTE | 2024-06-04 14:38 | P.PN ---
Subjective Progress Note Date: 06/04/24 Principal diagnosis: Hospital course: 63-year-old male, history of gastroesophageal reflux disease, BPH, osteoarthritis, who presents to the emergency department for cramping in his extremities. States that over the last couple of days he has had cramping in his bilateral lower extremities as well as left upper extremity. He did have nausea and vomiting a couple of days ago. Unsure if he may be dehydrated. Denies ever having this happen in the past. States that when he moves a certain way it seems to exacerbate his symptoms. He has not noticed any redness, swelling, or other skin changes to his extremities. Blood work completed in ED reveals a WBC of 8.2, hemoglobin of 13.9 and platelet count of 439, sodium 128, potassium 4.6, CO2 of 10, BUNs/creatinine of 86/3.99, blood glucose of 107, phosphorus elevated at 6.8, magnesium down to 1.1, ALT elevated at 107, with creatinine kinase up to 331 --Respiratory viral screen is negative for influenza A, B, RSV and COVID-19 PCR UA is unremarkable 06/04/24: Patient seen and examined at bedside today. Patient has experienced a relief in his symptoms. No new complaints today. Labs today show WBC 7.19, hemoglobin 13.2, platelet count 393, sodium 134, potassium 4.8, bicarb 16.1, anion gap 12.9, BUN 60.2, creatinine 1.9, magnesium 2.2. Review of systems: Pertinent positives and negatives as discussed in HPI, a complete review of systems was performed and all other systems are negative. Vitals: Signs Reviewed Physical examination: General: nontoxic, no distress, appears at stated age Derm: warm, dry, intact Head: atraumatic, normocephalic, symmetric Eyes: EOMI, anicteric sclera Mouth: no lip lesion, mucus membranes moist Cardiovascular: S1 S2 reg, no murmur Lungs: CTA bilateral, no rhonchi, no rales, no accessory muscle use Abdominal: soft, non-tender to palpataion Extremities: No cyanosis, clubbing, or pedal edema. Neuro: Alert, Oriented, Gross neurological examination did not reveal any focal deficits. Psych: well appearing, appropriate affect Assessment/Plan: Active: #. CALIN secondary to ATN secondary to hypotension and volume depletion and increased fluid loss in the setting of high output ileostomy, improving #. Anion gap metabolic acidosis #. Hypovolemic hyponatremia, improving Normal saline discontinued Started on sodium bicarb IV 150ml/hr Nephrology is following #. Nausea and vomiting Continue Ondansetron 4 mg IVP Q4HR PRN #. Hypomagnesemia, resolved Chronic: #. Chronic Crohn's disease s/p ileostomy #. Hypertension #. Vitamin D deficiency #. Gastroesophageal reflux disease #. Osteoarthritis Continue doxazosin 8 mg p.o. at bedtime, ergocalciferol 1250 mcg p.o. every Tuesday, [place] 10 p.o. 4 times daily as needed F: Sodium bicarb in D5W 150 ml/hr E: Replete as required N: Regular diet DVT prophylaxis: Heparin 5000 units SQ Q8HR GI prophylaxis: Pantoprazole 40 mg PO daily Attestation: I have personally seen and examined the patient with Resident, reviewed the documentation and participated and agree with the assessment and plan as written. Aristeo Kee MD Objective - Vital Signs Vital signs: Vital Signs Temp 98 F 06/04/24 12:02 Pulse 61 06/04/24 12:02 Resp 15 06/04/24 12:02 BP 105/68 06/04/24 12:02 Pulse Ox 98 06/04/24 12:02 FiO2 Intake & Output 06/03/24 06/04/24 06/04/24 18:59 06:59 18:59 Intake Total 1000 Balance 1000 Weight 77.111 kg 77.111 kg Intake: Intake, IV Titration 1000 Amount Sodium Chloride 0.9% 1, 1000 000 ml @ 130 mls/hr IV . Q7H42M STA Rx#:[id number] Other: # Voids 4 # Bowel Movements 1 - Labs CBC & Chem 7: 06/04/24 07:40 06/05/24 06:40 Labs: Abnormal Lab Results - Last 24 Hours (Table) 06/04/24 06/04/24 Range/Units 07:40 07:40 Hct 39.5 L (39.6-50.0) % RDW 16.1 H (11.5-14.5) % MPV 9.3 L (9.5-12.2) FL Immature Gran # 0.10 H (0.00-0.04) X 10*3/uL Sodium 134 L (135-145) mmol/L Carbon Dioxide 16.1 L (21.6-31.8) mmol/L Anion Gap 12.90 H (4.00-12.00) mmol/L BUN 60.2 H (9.0-27.0) mg/dL Creatinine 1.9 H (0.6-1.5) mg/dL Est GFR (CKD-EPI) 40 L (>=60) BUN/Creatinine Ratio 31.68 H (12.00-20.00) Ratio
[2024-06-04 22:37] VITALS: RESP 16
[2024-06-05 07:32] LABS: African American GFR (CKD) 76 (>60 ml/min/1.73 sqM); Anion Gap 6 mmol/L; Blood Urea Nitrogen 41 mg/dL (9-20); Calcium 8.5 mg/dL (8.4-10.2); Carbon Dioxide 24 mmol/L (22-30); Chloride 105 mmol/L (98-107); Glucose 101 mg/dL (74-99); Non-African American GFR(CKD) 66 (>60 ml/min/1.73 sqM); Potassium 4.4 mmol/L (3.5-5.1); Sodium 135 mmol/L (137-145)
[2024-06-05 08:10] VITALS: BP 101/64; PULSE 70; TEMP 98.1
[2024-06-05] MEDS ORDERED: LACTATED RINGERS 1,000 ML IV SCH (08:45)
--- NOTE | 2024-06-05 10:49 | P.PN ---
Subjective Progress Note Date: 06/05/24 Patient seen for follow-up for CALIN, hyponatremia and hypomagnesemia. Renal function magnesium level returned to normal/baseline. Hyponatremia has continued to improve. No active complaints. Oral intake fair. Continues to produce good amounts of urine without difficulty. Objective - Vital Signs Vital signs: Vital Signs Temp 98.1 F 06/05/24 07:31 Pulse 70 06/05/24 07:31 Resp 16 06/05/24 07:31 BP 101/64 06/05/24 07:31 Pulse Ox 95 06/05/24 07:31 FiO2 Intake & Output 06/04/24 06/05/24 06/05/24 18:59 06:59 18:59 Intake Total 1979 240 Balance 1979 240 Intake: Intake, IV Titration 900 Amount Dextrose 5% in Water 1, 900 000 ml @ 150 mls/hr IV . Q7H40M SEA with Sodium Bicarb (1 Meq/ml) 150 ml Rx#:[id number] Oral 1080 240 Other: Voiding Method Toilet # Voids 3 - Exam Patient is awake, comfortable, no acute distress. Heart: S1 and S2 heard Lungs: Bilateral breath sounds are heard Abdomen: Ostomy bag present. Ventral hernia present. Lower extremities: No edema FIELD MECHANIC/SITE LEAD: grossly intact - Labs CBC & Chem 7: 06/04/24 07:40 06/05/24 06:40 Labs: Abnormal Lab Results - Last 24 Hours (Table) 06/04/24 06/04/24 06/05/24 Range/Units 07:40 07:40 06:40 Hct 39.5 L (39.6-50.0) % RDW 16.1 H (11.5-14.5) % MPV 9.3 L (9.5-12.2) FL Immature Gran # 0.10 H (0.00-0.04) X 10*3/uL Sodium 134 L 135 L (135-145) mmol/L Carbon Dioxide 16.1 L (21.6-31.8) mmol/L Anion Gap 12.90 H (4.00-12.00) mmol/L BUN 60.2 H 41 H (9.0-27.0) mg/dL Creatinine 1.9 H (0.6-1.5) mg/dL Est GFR (CKD-EPI) 40 L (>=60) BUN/Creatinine Ratio 31.68 H (12.00-20.00) Ratio Glucose 101 H (74-99) mg/dL Assessment and Plan Assessment: #CALIN secondary to ATN secondary to hypotension and volume depletion and increased fluid loss in the setting of high output ileostomy -discontinued bicarb in D5W at 150 cc/h and switched to LR at 125 cc/h; UA benign with trace protein #Hypovolemic hyponatremia - improving with IV hydration #Anion gap metabolic acidosis secondary to acute renal failure - resolved #Hypomagnesemia secondary to GI fluid loss and chronic PPI use - resolved #Chronic Crohn's disease s/p ileostomy w/plans for reversal down the road; history of previous surgeries with infections Plan: -Had been receiving sodium bicarb in D5W at 150 cc/h, discontinued after anion gap and resolved and bicarb level returned to normal -Initiated on LR at 125 cc/h -Recheck labs in a.m. -Patient is stable for discharge from nephrology standpoint. He is to follow-up outpatient within 2 weeks of discharge. Patient is seen and examined. Agree with resident's findings, assessment and plan.
--- NOTE | 2024-06-05 11:07 | P.DS ---
Providers Date of admission: 06/03/24 13:11 Expected date of discharge: 06/05/24 Attending physician: Jah Espana MD Consults: 06/03/24 13:18 Consult Physician Urgent Consulting Provider: Lit Springer Consult Reason/Comments: CALIN, hyponatremia, hypomagnesemia Do you want consulting provider notified?: Yes Primary care physician: [facility] Course: Discharge diagnosis: CALIN secondary to ATN secondary to hypotension and volume depletion and increased fluid loss due to high output ileostomy, improving Anion gap metabolic acidosis, improved Hypovolemic hyponatremia, improving Nausea and vomiting Hypomagnesemia, resolved Chronic Crohn's disease s/p ileostomy Hypertension Vitamin D deficiency Gastroesophageal reflux disease Osteoarthritis Hospital Course: 63-year-old male, history of gastroesophageal reflux disease, BPH, osteoarthritis, who presents to the emergency department for cramping in his e xtremities. States that over the last couple of days he has had cramping in his bilateral lower extremities as well as left upper extremity. He did have nausea and vomiting a couple of days ago. Unsure if he may be dehydrated. Denies ever having this happen in the past. States that when he moves a certain way it seems to exacerbate his symptoms. He has not noticed any redness, swelling, or other skin changes to his extremities. Blood work completed in ED reveals a WBC of 8.2, hemoglobin of 13.9 and platelet count of 439, sodium 128, potassium 4.6, CO2 of 10, BUNs/creatinine of 86/3.99, blood glucose of 107, phosphorus elevated at 6.8, magnesium down to 1.1, ALT elevated at 107, with creatinine kinase up to 331. Respiratory viral screen is negative for influenza A, B, RSV and COVID-19 PCR. UA is unremarkable 06/04/24: Patient seen and examined at bedside today. Patient has experienced a relief in his symptoms. No new complaints today. Labs today show WBC 7.19, hemoglobin 13.2, platelet count 393, sodium 134, potassium 4.8, bicarb 16.1, anion gap 12.9, BUN 60.2, creatinine 1.9, magnesium 2.2. 06/05/24: Patient evaluated at bedside. Vital signs are stable. No acute events overnight. Labs today show sodium 135, BUN 41, creatinine 1.19, GFR 66, calcium 8.5 Patient seen at bedside today and is feeling good and excited about discharge. Patient will be discharged today. Patient is given a handout for CALIN and is advised to be compliant with medications. 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 Vital signs are reviewed and stable General: nontoxic, no distress, appears at stated age Derm: warm, dry, intact Head: atraumatic, normocephalic, symmetric Eyes: EOMI, anicteric sclera Mouth: no lip lesion, mucus membranes moist Cardiovascular: S1 S2 reg, no murmur Lungs: CTA bilateral, no rhonchi, no rales, no accessory muscle use Abdominal: soft, non-tender to palpataion Extremities: No cyanosis, clubbing, or pedal edema. Neuro: Alert, Oriented, Gross neurological examination did not reveal any focal deficits. Psych: well appearing, appropriate affect A total of 30 minutes of time were spent preparing this complex discharge summary. Patient was discharged on 06/05/24 at 1130. Attestation: I have personally seen and examined the patient with Resident, reviewed the documentation and participated and agree with the assessment and plan as written. Aristeo Kee MD Patient Condition at Discharge: Stable Plan - Discharge Summary Discharge Rx Participant: No New Discharge Prescriptions: Continue Terazosin [Hytrin] 5 mg PO BID HYDROcodone/APAP 10-325MG [Lefor 10-325] 1 tab PO QID PRN PRN Reason: Pain Ustekinumab [Stelara] 45 mg SQ QMONTHLY Cholecalciferol (Vitamin D3) [Vitamin D3 (1250 Mcg = 50,000 Iu)] 1,250 mcg PO MO Omeprazole 40 mg PO DAILY Discharge Medication List Omeprazole 40 mg PO DAILY 11/04/20 [History] Terazosin [Hytrin] 5 mg PO BID 11/04/20 [History] HYDROcodone/APAP 10-325MG [Lefor 10-325] 1 tab PO QID PRN 11/13/20 [History] Cholecalciferol (Vitamin D3) [Vitamin D3 (1250 Mcg = 50,000 Iu)] 1,250 mcg PO MO 06/03/24 [History] Ustekinumab [Stelara] 45 mg SQ QMONTHLY 06/03/24 [History] Follow up Appointment(s)/Referral(s): Puja Beckwith MD [STAFF PHYSICIAN] - 06/27/24 2:20 pm Louie Lipscomb DO [Primary Care Provider] - 06/12/24 10:40 am (Appointment with [place] [facility]ATE) Ambulatory/Diagnostic Orders: Basic Metabolic Panel [LAB.AMB] Time Frame: 1 Week, Location: None Selected Magnesium [LAB.AMB] Time Frame: 1 Week, Location: None Selected Patient Instructions/Handouts: Acute Kidney Injury (DC), Hyponatremia (DC), Hypomagnesemia (DC) Discharge Disposition: HOME SELF-CARE
== END 2024-06-05 12:50 | disposition home or self-care (01) | DRG 393 ==
LOC: EC 11:34 → 4SSUR 13:11 → 5NMEDONC 06-04 06:18
PROVIDERS: ADMIT Internal Medicine; ATTEND Internal Medicine
DX: K94.13 Enterostomy malfunction (principal); N17.0 Acute kidney failure with tubular necrosis; E87.20 Acidosis, unspecified; I10 Essential (primary) hypertension; K50.90 Crohn's disease, unspecified, without complications; E87.1 Hypo-osmolality and hyponatremia; E86.0 Dehydration; E86.1 Hypovolemia; E86.9 Volume depletion, unspecified; F17.210 Nicotine dependence, cigarettes, uncomplicated; G47.00 Insomnia, unspecified; G47.33 Obstructive sleep apnea (adult) (pediatric); K21.9 Gastro-esophageal reflux disease without esophagitis; M19.90 Unspecified osteoarthritis, unspecified site; R11.2 Nausea with vomiting, unspecified; N40.0 Benign prostatic hyperplasia without lower urinary tract symptoms; K43.9 Ventral hernia without obstruction or gangrene; G89.29 Other chronic pain; M51.360 Other intervertebral disc degeneration, lumbar region with discogenic back pain only; E83.42 Hypomagnesemia; Z79.899 Other long term (current) drug therapy
CPT/HCPCS: 36415; 80048; 80053; 81003; 82550; 83605; 83735; 84100; 85025; 87636; 93005; 96361; 96365; 96366; 96375; 96376; 99285

== ENCOUNTER → 2024-06-08 | Outpatient (CLI) | payer MEDICARE ==
[2024-06-08 16:46] LABS: BUN/Creat Ratio 15.79 Ratio (12.00-20.00); Blood Urea Nitrogen 22.1 mg/dL (9.0-27.0); Calcium 9.6 mg/dL (8.7-10.3); Carbon Dioxide 19.9 mmol/L (21.6-31.8); Chloride 108 mmol/L (96-109); Glucose 101 mg/dL (70-110); Potassium 4.8 mmol/L (3.5-5.5); Sodium 139 mmol/L (135-145)
== END | disposition home or self-care (01) ==
LOC: LABWHC1 10:05
PROVIDERS: ATTEND Internal Medicine
DX: I10 Essential (primary) hypertension (principal); N17.0 Acute kidney failure with tubular necrosis; E87.1 Hypo-osmolality and hyponatremia; E83.42 Hypomagnesemia
CPT/HCPCS: 36415; 80048; 83735

== ENCOUNTER → 2024-09-07 | Outpatient (CLI) | payer MEDICARE ==
--- NOTE | 2024-09-12 11:03 | CTL ---
EXAMINATION TYPE: CT Low Dose Lung DATE OF EXAM: 09/07/2024 12:00 PM COMPARISON: CT abdomen and pelvis 08/18/2021 SCREENING VISIT: Initial CT DIAGNOSTIC QUALITY: Satisfactory CLINICAL INDICATION: Male, 63 years old with history of F17.210 nicotine dependence, CURRENT SMOKER 1 PPD X30 YEARS., Lung cancer screening, History of tobacco use. TECHNIQUE: Low dose computed tomography scan was performed through the chest at 1 mm thick sections a nd reconstructed images in the coronal plane at 1 mm thick sections. Contrast used: mL of , (none if empty) Oral contrast used: (none if empty) CT DLP: 129.5 mGycm, Automated exposure control for dose reduction was used. CT CTDI: 3.2 mGy, Automated exposure control for dose reduction was used. FINDINGS: LUNG NODULES: Present, detailed below: 1. There is 0.9 cm irregular density along the anterior lingula. Series 4 image 2-4. Some adjacent in filtrate may be present. LUNGS: COPD: Severity: None Fibrosis: Severity: None Lymph nodes: None Other findings: None RIGHT PLEURAL SPACE: Effusion: None Calcification: None Thickening: None Pneumothorax: None LEFT PLEURAL SPACE: Effusion: None Calcification: None Thickening: None Pneumothorax: None HEART: Other: Ascending thoracic aorta at the level the main pulmonary artery measures 3.5 cm. The main pul monary artery at the bifurcation measures 2.3 cm. Heart Size: Normal Coronary calcification: No significant coronary artery calcifications. Pericardial effusion: None OTHER FINDINGS: Upper abdomen: Normal Bony thorax: Normal Supraclavicular region: Normal IMPRESSION: 1. Small density in the lingula, nonspecific. Underlying nodule or infiltrate may be present. Short-t erm follow-up CT in 3 months can be performed. If this is persistent consider PET/CT FOLLOW UP CT CHEST RECOMMENDATION: Follow up CT chest within 3 months, possible PET/CT CT LUNG RAD: Lung-Rad 3 Probably [facility], Workstation: [employer], 09/12/2024 11:00 AM
== END | disposition home or self-care (01) ==
LOC: RADCTMAIN 11:02
PROVIDERS: ATTEND Family Medicine
DX: Z12.2 Encounter for screening for malignant neoplasm of respiratory organs (principal); F17.210 Nicotine dependence, cigarettes, uncomplicated; J98.4 Other disorders of lung
CPT/HCPCS: 71271

== ENCOUNTER → 2024-09-14 | Outpatient (CLI) | payer MEDICARE ==
[2024-09-14 10:57] LABS: African American GFR (CKD) 73 (>60 ml/min/1.73 sqM); Blood Urea Nitrogen 27 mg/dL (9-20); Non-African American GFR(CKD) 63 (>60 ml/min/1.73 sqM)
--- NOTE | 2024-09-14 12:40 | CT ---
EXAMINATION TYPE: CT abdomen pelvis wo/w con DATE OF EXAM: 09/14/2024 12:09 PM COMPARISON: 08/18/2021 CLINICAL INDICATION: Male, 63 years old with history of K43.2 VENTRAL HERNIA; VENTRAL HERNIA TECHNIQUE: Axial CT abdomen pelvis wo/w con;Sagittal and coronal reformats were created on a [employer] workstation. Contrast used:85ml mL of Isovue 300 without and with IV Contrast, (none if empty) Oral contrast used: with Oral Contrast (none if empty) CT DLP: 1437.60 mGycm, Automated exposure control for dose reduction was used. FINDINGS: LOWER CHEST: Unremarkable ABDOMEN LIVER: Unremarkable GALLBLADDER AND BILE DUCTS: Unremarkable. PANCREAS: Unremarkable. SPLEEN: Unremarkable. ADRENAL GLANDS: Unremarkable. KIDNEYS AND URETERS: No evidence of hydronephrosis or obstructing renal calculus. The ureters are unr emarkable. Simple appearing left renal cyst measuring up to 17 mm. no follow-up recommended. PELVIS BLADDER: No evidence for wall thickening or mass given limitations of exam. REPRODUCTIVE: Unremarkable. ABDOMEN & PELVIS STOMACH AND BOWEL: No evidence of bowel obstruction. Late lower quadrant ostomy with parastomal herni a containing loops of small bowel. PERITONEUM/RETROPERITONEUM: No evidence of pneumoperitoneum or free fluid. Fat-containing lesion in t he left lower abdomen mesentery possibly Qing epiploic appendage or infarcted fat series 3 image 49 f inding from prior. VASCULATURE: No evidence of aortic aneurysm. MUSCULOSKELETAL: No acute osseous abnormalities LYMPH NODES: No gross evidence for lymphadenopathy. SOFT TISSUE/ABDOMINAL WALL: Ventral hernia containing loops of small bowel No evidence for obstructio n. IMPRESSION: 1. Ventral hernia containing loops of small bowel. No evidence for obstruction. Finding is new from prior. 2. Right lower quadrant ostomy with right lower quadrant parastomal hernia containing loops small valeria wel. New from prior. No evidence for obstruction. 3. No evidence for acute intra-abdominal process. [facility], , 09/14/2024 12:37 PM
== END | disposition home or self-care (01) ==
LOC: RADCTMAIN 09:55
PROVIDERS: ATTEND Surgery
DX: K43.2 Incisional hernia without obstruction or gangrene (principal); F17.200 Nicotine dependence, unspecified, uncomplicated; K43.5 Parastomal hernia without obstruction or gangrene
CPT/HCPCS: 82565; 84520; 74178; 36415; Q9967

== ENCOUNTER → 2024-10-18 | Outpatient (CLI) | payer MEDICARE ==
--- NOTE | 2024-10-18 14:11 | US ---
EXAMINATION TYPE: US kidneys/renal and bladder DATE OF EXAM: 10/18/2024 COMPARISON: CT 09/14/2024 CLINICAL INDICATION: Male, 63 years old with history of N18.2 CKD STG 2; CKD, follow up of previous CT TECHNIQUE: Grayscale imaging of the bilateral kidneys and urinary bladder: FINDINGS: EXAM MEASUREMENTS: Right Kidney: 11.1 x 5.3 x 5.0 cm Left Kidney: 10.9 x 5.3 x 5.1 cm Exam limited by overlying bowel gas, scarring over bladder Right Kidney: No hydronephrosis or masses seen Left Kidney: Anechoic area seen measuring 1.7 x 1.5 x 1.6 cm lateral mid pole Bladder: wnl Bilateral Jets seen: Yes There is no evidence for hydronephrosis at this point in time. No nephrolithiasis is seen. The urin carmina bladder is anechoic. IMPRESSION: 1. No evidence for acute process. 2. Simple appearing left renal cortical cyst. [facility], , 10/18/2024 2:09 PM
== END | disposition home or self-care (01) ==
LOC: RADUSWWP 13:13
PROVIDERS: ATTEND Internal Medicine
DX: N18.2 Chronic kidney disease, stage 2 (mild) (principal); N28.1 Cyst of kidney, acquired
CPT/HCPCS: 76770